=== PATIENT | male | born 1950 | race Caucasian/White ===

== ENCOUNTER → 2018-06-27 | Day surgery (SDC) | payer OTHER ==
[2018-06-21 11:40] VITALS: BMI 33.9
[~2018-06-27] MED LIST: ALPRAZolam 0.25 MG TAB PO PRN; ALPRAZolam 0.5 MG TAB PO PRN; ASPIRIN 325 MG TAB PO STA; ATORVASTATIN 80 MG TAB PO STA; HEPARIN SODIUM 1,000 UN/ML (10ML VL) IV ONE; HEPARIN SODIUM 1,000 UN/ML (10ML VL) ONE; IOPAMIDOL-370 125ML BTL INJ ONE; LIDOCAINE 1% (PF) 10MG/ML VIAL SQ ONE; LIDOCAINE 1% INJ 10MG/ML (20 ML MDV) ONE; MIDAZOLAM 2 MG/2 ML VIAL IV ONE; MIDAZOLAM 2 MG/2 ML VIAL ONE; NITROGLYCERIN SL TABS 0.4 MG TAB SUBLINGUAL PRN; RX INFO: IV CONTRAST WAS GIVEN 1 EACH MISC MISCELLANE PRN; SODIUM CHLORIDE 0.9% 1,000 ML IV SCH; SODIUM CHLORIDE 0.9% 1,000 ML in EMPTY BAG 1 BAG IV ONE; VERAPAMIL 2.5 MG/ML 2 ML AMP ONE; VERAPAMIL SYRINGE (5 MG/10 ML) INTRAARTER ONE; methylPREDNISolone SOD SUCCI 125 MG/2 ML VIAL ONE
[2018-06-27 08:31] VITALS: RESP 18
[2018-06-27] MEDS: VERAPAMIL SYRINGE (5 MG/10 ML) INTRAARTER ONE ×2 (09:08→09:18)
--- NOTE | 2018-06-27 09:50 | CC ---
CARDIAC CATHETERIZATION REPORT DATE OF SERVICE: June 27, 2018 PERFORMING PHYSICIAN: Anson Vazquez MD. PROCEDURE PERFORMED: 1. Selective right and left coronary angiogram. 2. Left heart catheterization. INDICATIONS: This is a very pleasant 67-year-old gentleman with known history of coronary artery disease and prior stenting of the LAD was performed in 2011, was experiencing exertional symptoms of shortness of breath concerning for angina given the nature of the symptoms very similar to what he had in the past. Because of that, heart catheterization was advised. APPROACH: Right radial artery. COMPLICATION: None. LEVEL OF SEDATION: Moderate with sedation length of 14 minutes. PROCEDURE DESCRIPTION: After obtaining informed consent, the patient was brought to cardiac forestry laborer. The right radial artery was cannulated using micropuncture technique. Then I placed a 6- Boliv[place] sheath in the right radial artery. After that, I did selective right and left coronary angiogram using using 5-Bolivian catheter. Left heart catheterization was performed using 5-Bolivian pigtail catheter. The procedure was completed without any complication. SELECTIVE CORONARY ANGIOGRAM: 1. The right coronary artery is a small to medium caliber vessel and it is a codominant vessel. It is angiographically normal. 2. The left main is angiographically normal. It bifurcates into left circumflex and left anterior descending artery. 3. The left circumflex is a large caliber vessel. It is a dominant vessel. The proximal circumflex is angiographically normal. The mid circumflex is normal and gives rise into a large OM branch which appeared to be angiographically normal and the circumflex distally is normal and bifurcates into PDA and PLV branches, both are angiographically normal. 4. The LAD: The proximal LAD appeared to be angiographically normal. It gives rise into a diagonal branch which appeared to be normal. The mid LAD is stented and the stent is patent. bifurcation of second diagonal branch which appeared to be angiographically normal. The LAD in the mid to distal portion does have a lesion, appeared to be in the range of 50%. The LAD distally appeared to be angiographically normal. HEMODYNAMICS: The left ventricular end-diastolic pressure was 12 mmHg and no gradient was identified across the aortic valve. CONCLUSION: Patent stent in the mid left anterior descending artery. Intermediate lesion involving the mid to distal left anterior descending artery appeared to be in the range of 50%. POSTPROCEDURE MANAGEMENT: Medical treatment and follow up with the patient. MMODL / IJN: [id number] /
--- NOTE | 2018-06-27 09:53 | LTR ---
June 27, 2018 Re: Andrew Velazquez Dear Dr. Brown: Mr. Andrew Velazquez underwent a heart catheterization and that revealed patent stent in the mid LAD. I want to thank you for allowing me to participate in his care and please do not hesitate to call if question or concern. Sincerely, MD SUE Kilpatrick / LINDSAY: [id number] /
[2018-06-27 10:47] VITALS: TEMP 97.8
[2018-06-27 13:48] VITALS: BP 152/82; PULSE 68
== END ==
LOC: CATHCVL 07:55
PROVIDERS: ATTEND Internal Medicine Interventional Cardiology
DX: I25.110 Atherosclerotic heart disease of native coronary artery with unstable angina pectoris (principal); Z95.5 Presence of coronary angioplasty implant and graft; I10 Essential (primary) hypertension; E78.5 Hyperlipidemia, unspecified; E78.00 Pure hypercholesterolemia, unspecified; I65.23 Occlusion and stenosis of bilateral carotid arteries; Z79.82 Long term (current) use of aspirin; Z79.899 Other long term (current) drug therapy; Z72.0 Tobacco use; Z88.0 Allergy status to penicillin
CPT/HCPCS: 93458; C1894; J2250; J2930; J1644; J2001; Q9967

== ENCOUNTER 2018-11-16 10:23 | Observation (INO) | payer MEDICARE, OTHER ==
[2018-11-16] MEDS ORDERED: SODIUM CHLORIDE 0.9% 1,000 ML IV STA (10:46)
[2018-11-16] MEDS ORDERED: NITROGLYCERIN SL TABS 0.4 MG TAB SUBLINGUAL STA (10:46)
[2018-11-16] MEDS ORDERED: ASPIRIN 81 MG PO STA (10:46)
--- NOTE | 2018-11-16 10:54 | ED ---
Chest Pain HPI - General Chief Complaint: Chest Pain Stated Complaint: chest pain Time Seen by Provider: 11/16/18 10:32 Source: patient, RN notes reviewed Mode of arrival: wheelchair Limitations: no limitations - History of Present Illness Initial Comments: This is a 67-year-old male history of a cardiac stent in the past who states that he's been on a weight loss and walking regimen for the past several months where he lost 30+ pounds but over the last several weeks he's been having episodes of right-sided flank and chest pain this evening get worse with walking and exertion and get better with rest until last several days his been getting better with rest but now he doesn't he describes the pain is worse is dull 7 and 8/10 severity he does have some exertional dyspnea when it comes on. Right now he states he has some dull 2/10 pain mid sternal region. No fevers chills nausea vomiting sweats he does have the occasional exertional dyspnea he states. No other modifying factors no palpitations. He is scheduled for cardiac catheterization on the of this month. MD Complaint: chest pain - Related Data Home Medications Medication Instructions Recorded Confirmed Aspirin 81 mg PO HS 06/20/14 11/16/18 Lisinopril [Zestril] 10 mg PO HS 06/20/14 11/16/18 Metoprolol Tartrate [Lopressor] 25 mg PO HS 06/20/14 11/16/18 Metoprolol Tartrate [Lopressor] 50 mg PO QAM 06/20/14 11/16/18 Montelukast [Singulair] 10 mg PO HS 06/20/14 11/16/18 Multivitamin [Men's Multi-Vitamin] 1 tab PO DAILY 06/20/14 11/16/18 Omeprazole [PriLOSEC] 20 mg PO AC-BRKFST 06/20/14 11/16/18 Tamsulosin [Flomax] 0.4 mg PO DAILY 06/21/18 11/16/18 Isosorbide Mononitrate ER [Imdur] 30 mg PO DAILY 11/16/18 11/16/18 Multivitamins, Thera [Multivitamin 1 tab PO DAILY 11/16/18 11/16/18 (formulary)] Nitroglycerin Sl Tabs [Nitrostat] 0.4 mg SUBLINGUAL Q5M PRN 11/16/18 11/16/18 Rosuvastatin Calcium [Crestor] 40 mg PO DAILY 11/16/18 11/16/18 Vits A,C,E/Lutein/Minerals 1 tab PO DAILY 11/16/18 11/16/18 [Ocuvite with Lutein Tablet] Allergies Allergy/AdvReac Type Severity Reaction Status Date / Time Penicillins Allergy Rash/Hives Verified 11/16/18 10:49 shellfish derived [Shellfish] AdvReac Anaphylaxis Verified 11/16/18 10:49 vitamin B Allergy Rash/Hives Uncoded 11/16/18 10:28 Review of Systems ROS Statement: Those systems with pertinent positive or pertinent negative responses have been documented in the HPI. ROS Other: All systems not noted in ROS Statement are negative. EKG Findings - EKG Results: EKG: interpreted by ERMD (Sinus bradycardia with a rate of 49. Interval 220 QRS duration 90 QT since QTC 450/46 first-degree AV block noted voltage criteria for LVH this is compared with an EKG dated 06/25/12 which shows similar configuration however the bradycardia was not present at that time.) Past Medical History Past Medical History: Asthma, Hyperlipidemia, Hypertension Additional Past Medical History / Comment(s): hx. Hammond's esophagus, hx. colon polyps, prediabetes History of Any Multi-Drug Resistant Organisms: None Reported Past Surgical History: Heart Catheterization, Heart Catheterization With Stent Additional Past Surgical History / Comment(s): chest wound repair-1966, RT CATARACT Past Anesthesia/Blood Transfusion Reactions: Postoperative Nausea & Vomiting (PONV) Date of Last Stent Placement:: 2011 Past Psychological History: No Psychological Hx Reported Smoking Status: Never smoker Past Alcohol Use History: Rare Past Drug Use History: None Reported - Past Family History Sister(s) Family Medical History: Cancer Father Family Medical History: Cancer Brother(s) Family Medical History: Cancer General Exam - General Exam Comments Initial Comments: This is a well-developed well-nourished awake alert oriented 3 male Limitations: no limitations General appearance: alert, in no apparent distress Head exam: Present: atraumatic, normocephalic, normal inspection Eye exam: Present: normal appearance, PERRL, EOMI. Absent: scleral icterus, conjunctival injection, periorbital swelling ENT exam: Present: normal exam, mucous membranes moist Neck exam: Present: normal inspection, full ROM, other (No stridor JVD or bruits). Absent: tenderness, meningismus, lymphadenopathy Respiratory exam: Present: normal lung sounds bilaterally. Absent: respiratory distress, wheezes, rales, rhonchi, stridor Cardiovascular Exam: Present: regular rate, normal rhythm, normal heart sounds. Absent: systolic murmur, diastolic murmur, rubs, gallop, clicks GI/Abdominal exam: Present: soft, normal bowel sounds. Absent: distended, tenderness, guarding, rebound, rigid Extremities exam: Present: normal inspection, full ROM, normal capillary refill. Absent: tenderness, pedal edema, joint swelling, calf tenderness Back exam: Present: normal inspection Neurological exam: Present: alert, oriented X3, CN II-XII intact Psychiatric exam: Present: normal affect, normal mood Skin exam: Present: warm, dry, intact, normal color. Absent: rash Course Vital Signs 11/16/18 10:24 Temperature 97.5 F L Pulse Rate 52 L Respiratory 18 Rate Blood Pressure 136/69 O2 Sat by Pulse 99 Oximetry - Reevaluation(s) Reevaluation #1: 11/16/18 12:58 Reevaluation the patient reveals he is pain-free after nitroglycerin. Reevaluation #2: 11/16/18 13:00 electrical technician: electrical technician was indicated due to the patient's presentation with chest pain rule out dysrhythmia. Patient was noted have a heart rate of 50 AK evaluation bradycardia no evidence of ST elevation or PACs or PVCs. Chest Pain MDM - MDM I did review the imaging and report is evidence of basilar infiltrate the patient had no symptoms of shortness of breath cough or phlegm production fevers chills or sweats. Likely on the basis of some atelectasis. I did discuss the findings with the patient and family members patient will be admitted for evaluation of chest pain which appears consistent with ACS/unstable angina. Dr. Lebron will be consulted. Critical Care Time Critical Care Time: Yes Critical Care Time: 31 minutes of critical care time which includes initial presentation with history physical labs x-rays multiple reevaluation patient responsive therapy discuss with the patient regarding the findings discussed with Dr. Medeiros who who patient will be admitted to admission orders documentation the above. Patient is placed on nitro and heparin and has are he received aspirin. He did take 81 mg of aspirin last night before bed. Disposition Clinical Impression: Acute coronary syndrome, Unstable angina pectoris Disposition: ADMITTED IP TO THIS HOSP Condition: Fair Referrals: [facility],Clinic [Primary Care Provider] - 1-2 days
[2018-11-16 11:21] LABS: Basophils # (A) 0.1 k/uL (0-0.2); Basophils % (A) 1 %; Eosinophils # (A) 0.4 k/uL (0-0.7); Eosinophils % (A) 5 %; HCT 43.3 % (39.0-53.0); HGB 14.1 gm/dL (13.0-17.5); Lymphocytes # (A) 2.8 k/uL (1.0-4.8); Lymphocytes % (A) 31 %; MCH 28.2 pg (25.0-35.0); MCHC 32.5 g/dL (31.0-37.0); MCV 86.7 fL (80.0-100.0); Mean Platelet Volume 8.4; Monocytes # (A) 0.7 k/uL (0-1.0); Monocytes % (A) 7 %; Neutrophils % (A) 55 %; Platelet Count 153 k/uL (150-450); RDW 14.4 % (11.5-15.5); WBC 9.2 k/uL (3.8-10.6)
--- NOTE | 2018-11-16 11:27 | XR ---
EXAMINATION TYPE: XR chest 2V DATE OF EXAM: 11/16/2018 COMPARISON: 07/02/2012 INDICATION: Chest pain TECHNIQUE: Frontal and lateral views of the chest are obtained. FINDINGS: The heart size is normal. The pulmonary vasculature is normal. There is some mild patchy alveolar type infiltrate at the left base. Mild increased lung markings are at the right base. Correlate for infectious etiology such as pneumonia. Atelectasis is considered le ss likely. Atypical pulmonary edema is considered less likely. IMPRESSION: 1. Mild bibasilar infiltrates greater at the left base suspicious for an infectious etiology. Clinica l correlation is recommended and follow-up can be performed.
[2018-11-16 11:33] LABS: ALT 33 U/L (21-72); AST 28 U/L (17-59); Albumin 4.4 g/dL (3.5-5.0); Alkaline Phosphatase 73 U/L (38-126); Anion Gap 9 mmol/L; Blood Urea Nitrogen 20 mg/dL (9-20); Calcium 9.6 mg/dL (8.4-10.2); Carbon Dioxide 24 mmol/L (22-30); Chloride 107 mmol/L (98-107); Creatine Kinase 93 U/L (55-170); Glucose 91 mg/dL (74-99); Magnesium 1.8 mg/dL (1.6-2.3); Potassium 4.9 mmol/L (3.5-5.1); Sodium 140 mmol/L (137-145); Total Bilirubin 0.9 mg/dL (0.2-1.3); Total Protein 7.5 g/dL (6.3-8.2)
[2018-11-16 11:42] LABS: Partial Thromboplastin Time 23.3 sec (22.0-30.0); Prothrombin Time 10.8 sec (9.0-12.0)
[2018-11-16] MEDS ORDERED: HEPARIN SODIUM,PORCINE 5,000 UNIT/ML 1 ML VIAL IV ONE (13:04)
[2018-11-16] MEDS ORDERED: NITROGLYCERIN SL TABS 0.4 MG TAB SUBLINGUAL PRN (13:04)
[2018-11-16] MEDS: HEPARIN SOD,PORK IN 0.45% NACL 25,000 UNIT in 0.45% NACL 1 250ML.BAG IV SCH (13:34)
[2018-11-16] MEDS: NITROGLYCERIN OINT 1 INCH/GM PACKET TOPICAL SCH (19:51)
[2018-11-16] MEDS: SODIUM CHLORIDE 0.9% 1,000 ML IV SCH (19:51)
[2018-11-16] MEDS: LISINOPRIL 10 MG TAB PO SCH (20:21)
[2018-11-16] MEDS: MONTELUKAST 10 MG TAB PO SCH (20:21)
[2018-11-16] MEDS ORDERED: METOPROLOL TARTRATE 25 MG TAB PO SCH (21:00)
[2018-11-17] MEDS: NITROGLYCERIN OINT 1 INCH/GM PACKET TOPICAL SCH ×2 (00:04→04:41)
[2018-11-17 04:31] LABS: Cholesterol 95 mg/dL (<200); HDL Cholesterol 40 mg/dL (40-60); LDL Cholesterol,Calculated 44 mg/dL (0-99); Triglycerides 54 mg/dL (<150)
[2018-11-17 07:42] VITALS: RESP 18
[2018-11-17] MEDS ORDERED: ASPIRIN 325 MG TAB PO SCH (09:00)
[2018-11-17] MEDS ORDERED: METOPROLOL TARTRATE 50 MG TAB PO SCH (09:00)
[2018-11-17] MEDS: ATORVASTATIN 80 MG TAB PO SCH (10:05)
[2018-11-17] MEDS: ISOSORBIDE MONONITRATE ER 30 MG TAB.ER.24H PO SCH (10:05)
[2018-11-17] MEDS: PANTOPRAZOLE 40 MG TABLET PO SCH (10:05)
[2018-11-17] MEDS: TAMSULOSIN 0.4 MG CAP.ER.24H PO SCH (10:05)
[2018-11-17] MEDS: VIT A,C & E-LUTEIN-MINERALS 1 EACH TAB PO SCH (10:08)
[2018-11-17] MEDS ORDERED: SODIUM CHLORIDE 0.9% 1,000 ML in EMPTY BAG 1 BAG IV ONE (10:24)
--- NOTE | 2018-11-17 10:51 | ECHOF ---
Referral Reason:cp MEASUREMENTS -------- HEIGHT: 162.6 cm WEIGHT: 95.3 kg BP: RVIDd: 3.6 cm (< 3.3) IVSd: 1.1 cm (0.6 - 1.1) LVIDd: 4.3 cm (3.9 - 5.3) LVPWd: 1.3 cm (0.6 - 1.1) IVSs: 1.6 cm LVIDs: 3.5 cm LVPWs: 1.7 cm LA Diam: 3.8 cm (2.7 - 3.8) LAESV Index (A-L): 25.24 ml/m Ao Diam: 3.3 cm (2.0 - 3.7) AV Cusp: 2.0 cm (1.5 - 2.6) LA Diam: 5.1 cm (2.7 - 3.8) MV EXCURSION: 18.959 mm (> 18.000) MV EF SLOPE: 65 mm/s (70 - 150) EPSS: 0.6 cm MV E Tavon: 0.50 m/s MV DecT: 282 ms MV A Tavon: 0.67 m/s MV E/A Ratio: 0.74 AR PHT: 917 ms RAP: 5.00 mmHg RVSP: 45.16 mmHg FINDINGS -------- Sinus rhythm. This was a technically adequate study. LV size, wall thickness and systolic function are normal, with an EF greater than 55%. The left mario tricular size is normal. The right ventricle is mildly enlarged. The left atrial size is normal. The right atrial size is normal. There is mild aortic valve sclerosis. Trace amount of aortic regurgitation. Mild mitral annular calcification present. Mild mitral regurgitation is present. Mild tricuspid regurgitation present. There is mild pulmonary hypertension. The right ventricular systolic pressure, as measured by Doppler, is 45.16mmHg. There is no pulmonic regurgitation present. The aortic root size is normal. There is no pericardial effusion. CONCLUSIONS -------- 1. LV size, wall thickness and systolic function are normal, with an EF greater than 55%. 2. The right ventricle is mildly enlarged. 3. The left atrial size is normal. 4. The right atrial size is normal. 5. There is mild aortic valve sclerosis. 6. Trace amount of aortic regurgitation. 7. Mild mitral annular calcification present. 8. Mild mitral regurgitation is present. 9. Mild tricuspid regurgitation present. 10. There is mild pulmonary hypertension. 11. The right ventricular systolic pressure, as measured by Doppler, is 45.16mmHg. 12. There is no pulmonic regurgitation present. 13. The aortic root size is normal. 14. There is no pericardial effusion. PROFESSIONAL FIGHTER: Rebecca Dubon RDCS
--- NOTE | 2018-11-17 11:53 | P.HPIM ---
History of Present Illness H&P Date: 11/16/18 Chief Complaint: Chest pain Patient is a 67-year-old male with a known history of hypertension, hyperlipidemia, asthma, history of Hammond's esophagus, prediabetes and coronary artery disease with history of stent placement came to ER with complaints of exertional shortness of breath. Patient follows at [facility]. Patient is complaining of dull pain mainly right-sided chest.. Without any radiation of the pain. Patient has been on weight loss and walking placement for the past several months. He last 30+ pounds but over the last several weeks he has been having episodes of right-sided flank and chest pain. Patient did have worsening right-sided chest pain with walking and exertion and gets better with rest. Denied any nausea vomiting or diaphoresis along with. Patient does have exertional dyspnea otherwise. Patient is scheduled for cardiac catheterization on of this month.Denied any cough or sputum production. No recent illnesses. Denied any fever or chills. EKG showed sinus bradycardia with first-degree AV block Chest x-ray showed mild bibasilar infiltrates greater at the left base suspicious for an infectious etiology. Clinical correlation is recommended and follow-up can be performed. D-dimer is not elevated. No leukocytosis. Troponin 1 negative. Review of Systems Constitutional: Patient denies any fever or chills . No generalized weakness or weight loss. Abdomen: Patient denied nausea vomiting and diarrhea and abdominal pain. Cardiovascular: Patient denies any chest pain or short of breath no palpitations. Respiratory: patient denied any cough is from production. No shortness of breath Neurologic: Patient denied any numbness or tingling headache. Musculoskeletal: Patient denies any complaints of joint swelling or deformity. Skin: Negative Psychiatric: Negative Endocrine: No heat or cold intolerance. No recent weight gain. Genitourinary: No dysuria or hematuria. All other 14 point ROS negative except the above Past Medical History Past Medical History: Asthma, Hyperlipidemia, Hypertension Additional Past Medical History / Comment(s): hx. Hammond's esophagus, hx. colon polyps, prediabetes History of Any Multi-Drug Resistant Organisms: None Reported Past Surgical History: Heart Catheterization, Heart Catheterization With Stent Additional Past Surgical History / Comment(s): chest wound repair-1966, bilateral cataract repair Past Anesthesia/Blood Transfusion Reactions: Postoperative Nausea & Vomiting (PONV) Date of Last Stent Placement:: 2012 Past Psychological History: No Psychological Hx Reported Smoking Status: Current some day smoker Past Alcohol Use History: Rare Additional Past Alcohol Use History / Comment(s): STARTED SMOKING AT AGE 12, QUIT SMOKING IN , SMOKED 3PPD Past Drug Use History: None Reported - Past Family History Sister(s) Family Medical History: Cancer Father Family Medical History: Cancer Brother(s) Family Medical History: Cancer Medications and Allergies Home Medications Medication Instructions Recorded Confirmed Type Aspirin 81 mg PO HS 06/20/14 11/16/18 History Lisinopril [Zestril] 10 mg PO HS 06/20/14 11/16/18 History Metoprolol Tartrate [Lopressor] 25 mg PO HS 06/20/14 11/16/18 History Metoprolol Tartrate [Lopressor] 50 mg PO QAM 06/20/14 11/16/18 History Montelukast [Singulair] 10 mg PO HS 06/20/14 11/16/18 History Multivitamin [Men's Multi-Vitamin] 1 tab PO DAILY 06/20/14 11/16/18 History Omeprazole [PriLOSEC] 20 mg PO AC-BRKFST 06/20/14 11/16/18 History Tamsulosin [Flomax] 0.4 mg PO DAILY 06/21/18 11/16/18 History Isosorbide Mononitrate ER [Imdur] 30 mg PO DAILY 11/16/18 11/16/18 History Multivitamins, Thera [Multivitamin 1 tab PO DAILY 11/16/18 11/16/18 History (formulary)] Nitroglycerin Sl Tabs [Nitrostat] 0.4 mg SUBLINGUAL Q5M PRN 11/16/18 11/16/18 History Rosuvastatin Calcium [Crestor] 40 mg PO DAILY 11/16/18 11/16/18 History Vits A,C,E/Lutein/Minerals 1 tab PO DAILY 11/16/18 11/16/18 History [Ocuvite with Lutein Tablet] Allergies Allergy/AdvReac Type Severity Reaction Status Date / Time Penicillins Allergy Rash/Hives Verified 11/16/18 10:49 shellfish derived [Shellfish] AdvReac Anaphylaxis Verified 11/16/18 10:49 vitamin B Allergy Rash/Hives Uncoded 11/16/18 10:28 Physical Exam Vitals: Vital Signs Temp Pulse Pulse Resp BP BP Pulse Ox 11/16/18 18:47 98.2 F 57 L 14 124/71 98 11/16/18 16:00 97.8 F 53 L 18 133/67 96 11/16/18 14:10 97.5 F L 49 L 18 146/74 98 11/16/18 13:30 49 L 118/60 97 11/16/18 13:00 44 L 87/40 99 11/16/18 12:30 47 L 137/78 95 11/16/18 12:00 48 L 127/58 97 11/16/18 11:30 47 L 130/76 97 11/16/18 10:24 97.5 F L 52 L 18 136/69 99 Intake and Output 11/16/18 11/16/18 11/16/18 06:59 14:59 22:59 Intake Total 268.18 Balance 268.18 Intake: Intake, IV Titration 68.18 Amount Heparin Sod,Pork in 0.45% 68.18 NaCl 25,000 unit In 0.45 % NaCl 1 250ml.bag @ 10.5 UNITS/KG/HR 10.002 mls/ hr IV .Q24H ROXANNE Rx#: [id number] Oral 200 Other: Voiding Method Toilet # Voids 1 Weight 95.254 kg PHYSICAL EXAMINATION: Patient is lying in the bed comfortably, no acute distress, awake alert and oriented.. HEENT: Normocephalic. Neck is supple. Pupils reactive. Nostrils clear. Oral cavity is moist. Ears reveal no drainage. Neck reveals no JVD, carotid bruits, or thyromegaly. CHEST EXAMINATION: Trachea is central. Symmetrical expansion. Bibasilar diminished air entry. Lung queen clear to auscultation and percussion. CARDIAC: Normal S1, S2 with no gallops. No murmurs ABDOMEN: Soft. Bowel sounds normal. No organomegaly. No abdominal bruits. Extremities: reveal no edema. No clubbing or cyanosis Neurologically awake, alert, oriented x3 with well-coordinated movements. No focal deficits noted Skin: No rash or skin lesions. Psychiatric: Coperative. Nonsuicidal Musculoskeletal: No joint swelling or deformity. Normal range of motion. Results CBC & Chem 7: 11/16/18 11:04 11/16/18 11:04 Labs: Abnormal Lab Results - Last 24 Hours (Table) 11/16/18 Range/Units 19:41 APTT 44.2 H (22.0-30.0) sec Thrombosis Risk Factor Assmnt - DVT/VTE Prophylaxis DVT/VTE Prophylaxis: Pharmacologic Prophylaxis ordered - Choose All That Apply Any of the Below Risk Factors Present?: Yes Each Factor Represents 1 point: Obesity (BMI >25) Other Risk Factors: Yes Each Risk Factor Represents 2 Points: Age 61-74 years Thrombosis Risk Factor Assessment Total Risk Factor Score: 3 Thrombosis Risk Factor Assessment Level: Moderate Risk Assessment and Plan Assessment: Atypical chest pain. Chest pain is right-sided and exertional dyspnea. Possible angina. Mild bibasal infiltrate on chest x-ray. Without any other evidence of pneumonia. Will follow up. Sinus bradycardia with first-degree AV block Hypertension Hyperlipidemia Asthma History of Hammond's esophagus Prediabetes diet-controlled History of coronary disease with stent placement in 2011. Occasional smoking Plan: Patient continued on telemetry monitoring. Serial EKGs and troponins. Continue with heparin drip. Cardiology was consulted. Patient is supposed to cardiac catheterization on of this month. We will continue the home medications and further recommendations based on the clinical course. Past Drug Use History: None Reported Time with Patient: Greater than 30
--- NOTE | 2018-11-17 12:04 | P.CRDCN ---
History of Present Illness History of present illness: This is a pleasant 67-year-old male past medical history significant for coronary artery disease status post stent placement in 2011 to the LAD, asthma, hypertension, dyslipidemia and Hammond's esophagus. He follows in the office with Dr. Vazquez. We've been asked to see him in consultation secondary to chest discomfort. He recently in June of last year underwent cardiac cat heterization secondary to exertional shortness of breath concerning for angina which revealed a patent stent in the mid LAD with a lesion noted distally of approximately 50%. At that time he was placed on Imdur. He saw Dr. Vazquez in the office last week and described ongoing exertional shortness of breath. He was scheduled for repeat catheterization with probably stent placement later this month with Dr. Vazquez. However yesterday after waking up he started feeling a pain in the right anterior chest wall with radiation through to the right upper back. The pain came while he was walking around his house doing anything particularly exerting. There was no radiation to the arms neck or jaw. There is no associated shortness of breath, dizziness, nausea, vomiting, palpitations or diaphoresis. The symptoms were very brief lasting a couple of minutes and improved when he sat down and rested. He states in the past when he underwent his initial stent placement or ever since then he has never had any chest discomfort symptoms of angina moist and shortness of breath. He denies any cough. EKG reveals sinus bradycardia heart rate of 49. Chest x-ray reveals mild bibasilar infiltrates. Laboratory data reviewed, cardiac enzymes negative 3, d-dimer 0.44, LDL 44, HDL 40, WBC 9.2, hemoglobin 14.1, platelets 153, sodium 140, potassium 4.9, creatinine 0.8 and GFR 88, magnesium 1.8. Current cardiac medications include Lopressor 50 mg in the morning and 25 mg at bedtime, rosuvastatin 40 mg daily, Imdur 30 mg daily, lisinopril 10 mg daily and aspirin 81 mg daily. At the time of my exam: CONSTITUTIONAL: Denies fever. Denies chills. EYES: Denies blurred vision. Denies vision changes. Denies eye pain. EARS, NOSE, MOUTH & THROAT: Denies headache. Denies sore throat. Denies ear pain. CARDIOVASCULAR: Denies chest pain. Denies shortness of breath. Denies orthopnea. Denies PND. Denies palpitations. RESPIRATORY: Denies cough. GASTROINTESTINAL: Denies abdominal pain. Denies diarrhea. Denies constipation. Denies nausea. Denies vomiting. MUSCULOSKELETAL: Denies myalgias. INTEGUMENTARY: Denies pruitis. Denies rash. NEUROLOGIC: Denies numbness. Denies tingling. Denies weakness. PSYCHIATRIC: Denies anxiety. Denies depression. ENDOCRINE: Denies fatigue. Denies weight change. Denies polydipsia. Denies polyurina. GENITOURINARY: Denies burning, hematuria or urgency with micturation. HEMATOLOGIC: Denies history of anemia. Denies bleeding. Blood pressure 09/11/2072 heart rate 58 afebrile maintaining oxygen saturation on room air GENERAL: This is a 67-year-old male in no apparent distress at the time of my examination. HEENT: Head is atraumatic, normocephalic. Pupils are equal, round. Sclerae anicteric. Conjunctivae are clear. Mucous membranes of the mouth are moist. Neck is supple. There is no jugular venous distention. No carotid bruit is heard. LUNGS: Clear to auscultation no wheezes, rales or rhonchi. No chest wall tenderness is noted on palpation or with deep breathing. HEART: Regular rate and rhythm without murmurs, rubs or gallops. S1 and S2 heard. ABDOMEN: Soft, nontender. Bowel sounds are heard. No organomegaly noted. EXTREMITIES: No evidence of peripheral edema and no calf tenderness noted. VASCULAR: Radial and dorsalis pedis pulses palpated, no evidence of clubbing. NEUROLOGIC: Patient is awake, alert and oriented x3. ASSESSMENT Chest pain with known 50% blockage of LAD with plan for repeat cath later this month. Coronary artery disease s/p stent placement to mid LAD 2011 with evidence of distal LAD disease of 50% Hypertension Dyslipidemia Asthma PLAN Obtain 2D echocardiogram and doppler study to assess cardiac structure and function. With his symptoms suggestive of unstable angina we recommend he proceed with cardiac cathereization today rather than wait until later this month. I have discussed the risks, benefits and alternative therapies for the above-mentioned procedure and for both sedation/analgesia as well as necessary blood product administration, if indicated, as they pertain to this patient. The patient has indicated understanding and acceptance of the risks and procedures discussed. Questions have been answered appropriately and he is agreeable to move forward with above stated procedure. Decrease lopressor to 25 mg BID for bradycardia noted on EKG. Further recommendations to follow. Thank you kindly for this consultation. Nurse Practitioner note has been reviewed, I agree with a documented findings and plan of care. Patient was seen and examined. Past Medical History Past Medical History: Asthma, Hyperlipidemia, Hypertension Additional Past Medical History / Comment(s): hx. Hammond's esophagus, hx. colon polyps, prediabetes History of Any Multi-Drug Resistant Organisms: None Reported Past Surgical History: Heart Catheterization, Heart Catheterization With Stent Additional Past Surgical History / Comment(s): chest wound repair-1966, bilateral cataract repair Past Anesthesia/Blood Transfusion Reactions: Postoperative Nausea & Vomiting (PONV) Date of Last Stent Placement:: 2011 Past Psychological History: No Psychological Hx Reported Smoking Status: Current some day smoker Past Alcohol Use History: Rare Additional Past Alcohol Use History / Comment(s): STARTED SMOKING AT AGE 12, QUIT SMOKING IN , SMOKED 3PPD Past Drug Use History: None Reported - Past Family History Sister(s) Family Medical History: Cancer Father Family Medical History: Cancer Brother(s) Family Medical History: Cancer Medications and Allergies Home Medications Medication Instructions Recorded Confirmed Type Aspirin 81 mg PO HS 06/20/14 11/16/18 History Lisinopril [Zestril] 10 mg PO HS 06/20/14 11/16/18 History Metoprolol Tartrate [Lopressor] 25 mg PO HS 06/20/14 11/16/18 History Metoprolol Tartrate [Lopressor] 50 mg PO QA 06/20/14 11/16/18 History Montelukast [Singulair] 10 mg PO HS 06/20/14 11/16/18 History Multivitamin [Men's Multi-Vitamin] 1 tab PO DAILY 06/20/14 11/16/18 History Omeprazole [PriLOSEC] 20 mg PO AC-BRKFST 06/20/14 11/16/18 History Tamsulosin [Flomax] 0.4 mg PO DAILY 06/21/18 11/16/18 History Isosorbide Mononitrate ER [Imdur] 30 mg PO DAILY 11/16/18 11/16/18 History Multivitamins, Thera [Multivitamin 1 tab PO DAILY 11/16/18 11/16/18 History (formulary)] Nitroglycerin Sl Tabs [Nitrostat] 0.4 mg SUBLINGUAL Q5M PRN 11/16/18 11/16/18 History Rosuvastatin Calcium [Crestor] 40 mg PO DAILY 11/16/18 11/16/18 History Vits A,C,E/Lutein/Minerals 1 tab PO DAILY 11/16/18 11/16/18 History [Ocuvite with Lutein Tablet] Allergies Allergy/AdvReac Type Severity Reaction Status Date / Time Penicillins Allergy Rash/Hives Verified 11/16/18 10:49 shellfish derived [Shellfish] AdvReac Anaphylaxis Verified 11/16/18 10:49 vitamin B Allergy Rash/Hives Uncoded 11/16/18 10:28 Physical Exam Vitals: Vital Signs Temp Pulse Pulse Resp BP BP BP 11/17/18 07:20 98.9 F 58 L 18 127/73 11/17/18 04:00 16 11/17/18 03:42 98.2 F 56 L 14 130/76 11/16/18 23:53 16 11/16/18 23:37 97.9 F 67 15 102/57 11/16/18 20:00 16 11/16/18 18:47 98.2 F 57 L 14 124/71 11/16/18 16:00 97.8 F 53 L 18 133/67 11/16/18 14:10 97.5 F L 49 L 18 146/74 11/16/18 13:30 49 L 118/60 11/16/18 13:00 44 L 87/40 11/16/18 12:30 47 L 137/78 11/16/18 12:00 48 L 127/58 11/16/18 11:30 47 L 130/76 11/16/18 10:24 97.5 F L 52 L 18 136/69 Pulse Ox 11/17/18 07:20 95 11/17/18 04:00 11/17/18 03:42 99 11/16/18 23:53 11/16/18 23:37 96 11/16/18 20:00 11/16/18 18:47 98 11/16/18 16:00 96 11/16/18 14:10 98 11/16/18 13:30 97 11/16/18 13:00 99 11/16/18 12:30 95 11/16/18 12:00 97 11/16/18 11:30 97 11/16/18 10:24 99 Intake and Output 11/16/18 11/17/18 11/17/18 22:59 06:59 14:59 Intake Total 268.18 82.952 Balance 268.18 82.952 Intake: Intake, IV Titration 68.18 82.952 Amount Heparin Sod,Pork in 0.45% 68.18 82.952 NaCl 25,000 unit In 0.45 % NaCl 1 250ml.bag @ 10.5 UNITS/KG/HR 10.002 mls/ hr IV .Q24H [facility]OX[facility] Rx#: [id number] Oral 200 0 Other: Voiding Method Toilet Toilet # Voids 1 1 Results 11/16/18 11:04 11/16/18 11:04 Cardiac Enzymes 11/16/18 11/16/18 11/16/18 Range/Units 11:04 11:04 17:05 AST 28 (17-59) U/L Troponin I <0.012 <0.012 (0.000-0.034) ng/mL 11/16/18 Range/Units 23:27 AST (17-59) U/L Troponin I <0.012 (0.000-0.034) ng/mL Coagulation 11/16/18 11/16/18 11/17/18 Range/Units 11:04 19:41 03:11 PT 10.8 (9.0-12.0) sec APTT 23.3 44.2 H 52.6 H (22.0-30.0) sec Lipids 11/17/18 Range/Units 03:11 Triglycerides 54 (<150) mg/dL Cholesterol 95 (<200) mg/dL HDL Cholesterol 40 (40-60) mg/dL CBC 11/16/18 Range/Units 11:04 WBC 9.2 (3.8-10.6) k/uL RBC 5.00 (4.30-5.90) m/uL Hgb 14.1 (13.0-17.5) gm/dL Hct 43.3 (39.0-53.0) % Plt Count 153 (150-450) k/uL Comprehensive Metabolic Panel 11/16/18 Range/Units 11:04 Sodium 140 (137-145) mmol/L Potassium 4.9 (3.5-5.1) mmol/L Chloride 107 (98-107) mmol/L Carbon Dioxide 24 (22-30) mmol/L BUN 20 (9-20) mg/dL Creatinine 0.89 (0.66-1.25) mg/dL Glucose 91 (74-99) mg/dL Calcium 9.6 (8.4-10.2) mg/dL AST 28 (17-59) U/L ALT 33 (21-72) U/L Alkaline Phosphatase 73 (38-126) U/L Total Protein 7.5 (6.3-8.2) g/dL Albumin 4.4 (3.5-5.0) g/dL Current Medications Generic Name Dose Route Start Last Admin Trade Name Freq PRN Reason Stop Dose Admin Aspirin 325 mg 11/17/18 09:00 Aspirin PO DAILY ROX[facility] Atorvastatin Calcium 80 mg 11/17/18 09:00 Lipitor PO DAILY [facility]OX[facility] Sodium Chloride 1,000 mls @ 20 mls/hr 11/16/18 10:46 11/16/18 11:09 Saline 0.9% IV 11/17/18 10:45 20 mls/hr .Q24H STA Administration Heparin Sodium/Sodium Chloride 250 mls @ 10.002 mls/hr 11/16/18 13:15 11/17/18 03:21 25,000 unit/ Sodium Chloride IV 14.5 units/kg/hr .Q24H ROXANNE 13.812 mls/hr Titration Protocol 10.5 UNITS/KG/HR Sodium Chloride 1,000 mls @ 20 mls/hr 11/16/18 13:15 11/16/18 19:51 Saline 0.9% IV Not Given .Q24H ROX[facility]NE Isosorbide Mononitrate 30 mg 11/17/18 09:00 Imdur PO DAILY ROX[facility]NE Lisinopril 10 mg 11/16/18 21:00 11/16/18 20:21 Zestril PO 10 mg HS ROX[facility]NE Administration Metoprolol Tartrate 50 mg 11/17/18 09:00 Lopressor PO QAM R[facility]NE Metoprolol Tartrate 25 mg 11/16/18 21:00 11/16/18 20:21 Lopressor PO 25 mg HS ROX[facility]NE Administration Montelukast Sodium 10 mg 11/16/18 21:00 11/16/18 20:21 Singulair PO 10 mg HS R[facility]NE Administration Multivitamins 1 each 11/17/18 12:00 Theragran PO DAILY@1200 [facility] Multivitamins/Minerals 1 each 11/17/18 09:00 Ivite PO DAILY ROX[facility] Nitroglycerin 1 inch 11/16/18 18:00 11/17/18 04:41 Nitro-Bid Oint TOPICAL Not Given Q6HR [facility] Nitroglycerin 0.4 mg 11/16/18 13:04 Nitrostat SUBLINGUAL Q5M PRN Chest Pain Pantoprazole Sodium 40 mg 11/17/18 07:30 Protonix PO AC-BRKFST [facility] Tamsulosin HCl 0.4 mg 11/17/18 09:00 Flomax PO DAILY [facility] Intake and Output 11/16/18 11/17/18 11/17/18 22:59 06:59 14:59 Intake Total 268.18 82.952 Balance 268.18 82.952 Intake: Intake, IV Titration 68.18 82.952 Amount Heparin Sod,Pork in 0.45% 68.18 82.952 NaCl 25,000 unit In 0.45 % NaCl 1 250ml.bag @ 10.5 UNITS/KG/HR 10.002 mls/ hr IV .Q24H [facility] Rx#: [id number] Oral 200 0 Other: Voiding Method Toilet Toilet # Voids 1 1 11/16/18 11:04 11/16/18 11:04
[2018-11-17] MEDS: MULTIVITAMINS, THERA 1 EACH TAB PO SCH (12:27)
[2018-11-17] MEDS ORDERED: HEPARIN SODIUM 1,000 UN/ML (10ML VL) ONE (17:22)
[2018-11-17] MEDS ORDERED: VERAPAMIL 2.5 MG/ML 2 ML AMP ONE (17:22)
[2018-11-17] MEDS ORDERED: LIDOCAINE 1% INJ 10MG/ML (20 ML MDV) ONE (17:22)
[2018-11-17] MEDS ORDERED: methylPREDNISolone SOD SUCCI 125 MG/2 ML VIAL ONE (18:17)
[2018-11-17] MEDS ORDERED: methylPREDNISolone SOD SUCCI 125 MG/2 ML VIAL IV ONE (18:20)
[2018-11-17] MEDS ORDERED: MIDAZOLAM 2 MG/2 ML VIAL IVP ONE ×2 (18:20→18:53)
[2018-11-17] MEDS ORDERED: LIDOCAINE 1% INJ 10MG/ML (20 ML MDV) SQ ONE (18:21)
[2018-11-17] MEDS ORDERED: VERAPAMIL SYRINGE (5 MG/10 ML) INTRAARTER ONE ×2 (18:23→18:56)
[2018-11-17] MEDS ORDERED: HEPARIN SODIUM 1,000 UN/ML (10ML VL) IV ONE ×3 (18:25→19:02)
[2018-11-17] MEDS ORDERED: IV FLUID CONTINUATION 1,000 ML IV ONE (18:26)
[2018-11-17] MEDS ORDERED: CLOPIDOGREL 75 MG TAB ONE ×2 (18:39→18:44)
[2018-11-17] MEDS ORDERED: CLOPIDOGREL 75 MG TAB PO ONE (18:45)
[2018-11-17] MEDS ORDERED: IOPAMIDOL-370 150ML BTL INJ ONE (18:55)
[2018-11-17] MEDS ORDERED: MAG HYDROX/AL HYDROX/SIMETH 30 ML CUP PO PRN (19:08)
[2018-11-17] MEDS ORDERED: ATROPINE SULFATE 0.1 MG/ML 10ML SYRINGE IV PRN (19:08)
[2018-11-17] MEDS ORDERED: NITROGLYCERIN SL TABS 0.4 MG TAB SUBLINGUAL PRN (19:08)
[2018-11-17] MEDS ORDERED: RX INFO: IV CONTRAST WAS GIVEN 1 EACH MISC MISCELLANE PRN (19:08)
[2018-11-17] MEDS ORDERED: ZOLPIDEM 5 MG TAB PO PRN (19:08)
[2018-11-17] MEDS ORDERED: SODIUM CHLORIDE 0.9% 1,000 ML IV SCH (19:15)
[2018-11-17] MEDS: HEPARIN SOD,PORK IN 0.45% NACL 25,000 UNIT in 0.45% NACL 1 250ML.BAG IV SCH (20:30)
[2018-11-17] MEDS: SODIUM CHLORIDE 0.9% 1,000 ML IV SCH (20:30)
[2018-11-17] MEDS: LISINOPRIL 10 MG TAB PO SCH (21:20)
[2018-11-17] MEDS: METOPROLOL TARTRATE 25 MG TAB PO SCH (21:20)
[2018-11-17] MEDS: MONTELUKAST 10 MG TAB PO SCH (21:20)
--- NOTE | 2018-11-18 01:47 | CC ---
CARDIAC CATHETERIZATION REPORT DATE OF SERVICE: 11/17/2018. PERFORMED BY: Felicitas Vazquez MD, community outreach worker. PROCEDURE PERFORMED: 1. Selective right and left coronary angiogram. 2. Left heart catheterization. 3. Successful stenting of the mid to distal LAD using two 3.5 x 15 mm stents with an excellent angiographic results and reduction of stenosis from 70% to 0%. INDICATION: This is a 67-year-old gentleman with history of coronary artery disease and prior stenting of the mid LAD as well as hypertension and dyslipidemia, was experiencing symptoms of chest pain and chest discomfort for the last several months. He underwent myocardial perfusion imaging stress test in May of 2019 and that revealed apical ischemia. He underwent heart catheterization at that point and that revealed intermediate to severe disease involving the mid LAD. Maximized medical treatment was advised at that point. He was seen in the office recently and he continues to have chest pain with exertion. He is scheduled to undergo a heart catheterization as an outpatient but he ended up in the hospital with chest pain. Because of that, a heart catheterization was advised. APPROACH: Right radial artery. COMPLICATIONS: None. LEVEL OF SEDATION: Moderate with sedation length of 30 to 42 minutes. PROCEDURE DESCRIPTION: After obtaining an informed consent, the patient was brought to cardiac labeling associate. The right radial artery was cannulated using micropuncture technique and a micropuncture wire passed easily, then I placed a 6-Sami sheath 11 cm in the right radial artery and I gave the patient 10,000 of heparin IV and 2 mg of verapamil IA. I did after that selective right and left coronary angiogram using JR4 and JL3.5 catheters. Left heart catheterization was performed using 6-Sami pigtail catheter. The procedure was completed without any complication. CORONARY ANGIOGRAM: 1. The right coronary artery is a medium caliber vessel and is a dominant vessel and appears to be angiographically normal. 2. The left main appeared to be angiographically normal. It bifurcates into the circumflex and left anterior descending artery. 3. Left circumflex is a large caliber vessel, a dominant vessel. The proximal circumflex appeared to be normal. The mid circumflex is normal and gives rise into a large first OM branch which appeared to be angiographically normal. The circumflex continued after that distally and appeared to be normal and bifurcates into PDA and PLV branches both are angiographically normal. 4. The LAD the proximal LAD appeared to be angiographically normal. It gives rise into a large diagonal branch which seems to be normal. The mid LAD has a lesion appeared to be in the range of 50%. The LAD in the mid portion is stented with mild in-stent restenosis. Distal to that area, there is a lesion appeared to be in the range of 70%. HEMODYNAMICS: The left ventricular end-diastolic pressure was 12 mmHg without gradient across the aortic valve. MMODL / IJN: [id number] /
--- NOTE | 2018-11-18 01:57 | LTR ---
November 17, 2018. Dear Stephanie: RE: Andrew Marcus Dear Dr. Brown: Mr. Andrew Velazquez presented to [facility] with chest discomfort and I did perform heart catheterization and stenting of the LAD. Thank you for allowing us to participate in his care. Please do not hesitate to contact us. Sincerely, Anson Vazquez M.D. SUE / LINDSAY: [id number] /
[2018-11-18 04:00] VITALS: TEMP 97.8
[2018-11-18] MEDS: PANTOPRAZOLE 40 MG TABLET PO SCH (06:11)
[2018-11-18] MEDS: VIT A,C & E-LUTEIN-MINERALS 1 EACH TAB PO SCH (08:45)
[2018-11-18] MEDS: TAMSULOSIN 0.4 MG CAP.ER.24H PO SCH ×2 (08:45→08:49)
[2018-11-18] MEDS: ISOSORBIDE MONONITRATE ER 30 MG TAB.ER.24H PO SCH (08:45)
[2018-11-18] MEDS: ATORVASTATIN 80 MG TAB PO SCH (08:45)
[2018-11-18] MEDS: METOPROLOL TARTRATE 25 MG TAB PO SCH (08:45)
[2018-11-18] MEDS ORDERED: ASPIRIN 81 MG PO SCH (09:00)
[2018-11-18] MEDS: SODIUM CHLORIDE 0.9% 1,000 ML IV SCH (11:37)
[2018-11-18] MEDS: HEPARIN SOD,PORK IN 0.45% NACL 25,000 UNIT in 0.45% NACL 1 250ML.BAG IV SCH (11:37)
[2018-11-18] MEDS: MULTIVITAMINS, THERA 1 EACH TAB PO SCH (11:56)
[2018-11-18 12:08] VITALS: BP 105/51; PULSE 57
--- NOTE | 2018-11-18 14:40 | P.PN ---
Subjective Patient is doing well. No chest discomfort dizziness lightheadedness or palpitations He's been ambulating the hallways On examination pulse rate in the 60s Normal respirations Blood pressure 105 over 1 mmHg Breath sounds are clear no rhonchi no crackles Heart sounds are normal no murmurs or gallops. Abdomen soft nontender Extremities warm no edema Impression non-Q-wave myocardial infarction Status post coronary stenting Preserved systolic function No arrhythmias on telemetry Normal cardiac examination no murmurs From a cardiac standpoint.: Current medications he does not need Imdur Continue all other medications including dual antiplatelet therapy with aspirin and Plavix as well as atorvastatin and beta blockers The only medication to be discontinued is in the Follow-up Dr. Lebron as an outpatient Objective - Vital Signs Vital signs: Vital Signs Temp 97.8 F 11/18/18 08:42 Pulse 57 L 11/18/18 12:00 Resp 18 11/18/18 12:00 BP 105/51 11/18/18 12:00 Pulse Ox 96 11/18/18 12:00 Intake & Output 11/17/18 11/18/18 11/18/18 18:59 06:59 18:59 Intake Total 400 160 510 Balance 400 160 510 Weight 100.6 kg Intake: IV 200 160 0.9 160 Oral 510 Other 200 Other: Voiding Method Toilet Toilet # Voids 1 1 - Labs CBC & Chem 7: 11/16/18 11:04 11/18/18 06:12
[2018-11-18 15:19] VITALS: BMI 31.4
[2018-11-18] MEDS ORDERED: CLOPIDOGREL 75 MG TAB PO SCH (19:09)
== END 2018-11-18 16:21 | disposition home or self-care (01) ==
LOC: EC 10:23 → 1SOBS 13:04 → 3SCARD 11-17 19:06
PROVIDERS: ADMIT Internal Medicine; ATTEND Internal Medicine
DX: I21.4 Non-ST elevation (NSTEMI) myocardial infarction (principal); I25.110 Atherosclerotic heart disease of native coronary artery with unstable angina pectoris; I10 Essential (primary) hypertension; E78.5 Hyperlipidemia, unspecified; J45.909 Unspecified asthma, uncomplicated; K22.70 Barrett's esophagus without dysplasia; R73.03 Prediabetes; R00.1 Bradycardia, unspecified; I44.0 Atrioventricular block, first degree; E66.9 Obesity, unspecified; Z68.31 Body mass index [BMI] 31.0-31.9, adult; F17.210 Nicotine dependence, cigarettes, uncomplicated; R91.8 Other nonspecific abnormal finding of lung field; Z79.82 Long term (current) use of aspirin; Z79.899 Other long term (current) drug therapy; Z88.0 Allergy status to penicillin; Z88.8 Allergy status to other drugs, medicaments and biological substances; Z91.013 Allergy to seafood; Z86.010 Personal history of colon polyps; Z98.41 Cataract extraction status, right eye; Z95.5 Presence of coronary angioplasty implant and graft; Z98.42 Cataract extraction status, left eye; Z80.9 Family history of malignant neoplasm, unspecified
CPT/HCPCS: 96366 ×2; 96376; 96365; 99291; 36415; 94760; 93005; 93306; 93458; 85347; 85379; 83880; 80061; 80053; 82565; 82550; 83735; 84484; 85025; 85610; 85730 ×2; 71046; G0378 ×4; C9600; C1887; C1769 ×2; C1874; C1894; J2250; J1644 ×3; J2930; J2001; Q9967

== ENCOUNTER → 2020-04-04 | Outpatient (CLI) | payer MEDICARE ==
[2020-04-04 07:59] LABS: Basophils # (A) 0.1 k/uL (0-0.2); Basophils % (A) 1 %; Eosinophils # (A) 0.2 k/uL (0-0.7); Eosinophils % (A) 2 %; HCT 47.5 % (39.0-53.0); HGB 15.6 gm/dL (13.0-17.5); Lymphocytes # (A) 3.3 k/uL (1.0-4.8); Lymphocytes % (A) 26 %; MCH 30.5 pg (25.0-35.0); MCHC 32.9 g/dL (31.0-37.0); MCV 92.6 fL (80.0-100.0); Mean Platelet Volume 7.9; Monocytes # (A) 0.8 k/uL (0-1.0); Monocytes % (A) 6 %; Neutrophils # (A) 7.9 k/uL (1.3-7.7); Neutrophils % (A) 63 %; Platelet Count 158 k/uL (150-450); RBC 5.13 m/uL (4.30-5.90); RDW 13.3 % (11.5-15.5); WBC 12.5 k/uL (3.8-10.6)
[2020-04-04 12:49] LABS: African American GFR (CKD) 104.2 (60.0-200.0); Albumin 4.5 g/dL (3.80-4.90); Albumin/Globulin Ratio 1.61 (1.60-3.17); Anion Gap 12.5 mmol/L (4.00-12.00); BUN/Creat Ratio 31.25 Ratio (12.00-20.00); Bilirubin, Conjugated 0.3 mg/dL (0.20-0.40); Calcium 9.5 mg/dL (8.7-10.3); Carbon Dioxide 25.5 mmol/L (21.6-31.8); Chol/HDL Ratio 2.7; Globulin 2.8 g/dL (1.6-3.3); Non-African American GFR(CKD) 89.9 (60.0-200.0); Total Bilirubin 0.8 mg/dL (0.3-1.2); Total Protein 7.3 g/dL (6.2-8.2)
[2020-04-04 12:57] LABS: T4, Free (Free Thyroxine) 0.9 ng/dL (0.80-1.80)
[2020-04-04 12:58] LABS: PSA Annual Screen 0.8 ng/mL (0.0-4.0)
[2020-04-04 15:49] LABS: Hemoglobin A1C 6.6 % (4.0-6.0)
== END | disposition home or self-care (01) ==
LOC: LABWHC1 07:06
PROVIDERS: ATTEND Internal Medicine
DX: Z00.00 Encounter for general adult medical examination without abnormal findings (principal); I10 Essential (primary) hypertension; R05 Cough; R53.83 Other fatigue; E78.00 Pure hypercholesterolemia, unspecified; Z12.5 Encounter for screening for malignant neoplasm of prostate; R73.9 Hyperglycemia, unspecified
CPT/HCPCS: 84439; 80061; 80053; 84443; 85025; 82306; 83036; 36415; G0103

== ENCOUNTER 2020-08-07 06:38 | Day surgery (SDC) | payer MEDICARE ==
[2020-08-05 14:25] VITALS: BMI 31.1
[~2020-08-07 06:38] MED LIST changes: -ALPRAZolam 0.25 MG TAB PO PRN; -ALPRAZolam 0.5 MG TAB PO PRN; -ASPIRIN 325 MG TAB PO STA; -ATORVASTATIN 80 MG TAB PO STA; -HEPARIN SODIUM 1,000 UN/ML (10ML VL) IV ONE; -HEPARIN SODIUM 1,000 UN/ML (10ML VL) ONE; -IOPAMIDOL-370 125ML BTL INJ ONE; +LACTATED RINGERS 1,000 ML IV SCH; +LIDOCAINE 1% (10MG/ML) FOR IV START INTRADERMA PRN; -LIDOCAINE 1% (PF) 10MG/ML VIAL SQ ONE; -LIDOCAINE 1% INJ 10MG/ML (20 ML MDV) ONE; -MIDAZOLAM 2 MG/2 ML VIAL IV ONE; -MIDAZOLAM 2 MG/2 ML VIAL ONE; -NITROGLYCERIN SL TABS 0.4 MG TAB SUBLINGUAL PRN; -RX INFO: IV CONTRAST WAS GIVEN 1 EACH MISC MISCELLANE PRN; -SODIUM CHLORIDE 0.9% 1,000 ML IV SCH; -SODIUM CHLORIDE 0.9% 1,000 ML in EMPTY BAG 1 BAG IV ONE; -VERAPAMIL 2.5 MG/ML 2 ML AMP ONE; -VERAPAMIL SYRINGE (5 MG/10 ML) INTRAARTER ONE; -methylPREDNISolone SOD SUCCI 125 MG/2 ML VIAL ONE
[2020-08-07 07:29] VITALS: TEMP 97.9
[2020-08-07 07:31] LABS: Glucose,Whole Blood 108 mg/dL (75-99)
[2020-08-07] MEDS ORDERED: LIDOCAINE 1% INJ 10MG/ML (20 ML MDV) ONE (07:36)
[2020-08-07] MEDS ORDERED: PROPOFOL 10 MG/ML 20 ML VIAL IV ONE (07:36)
--- NOTE | 2020-08-07 07:48 | P.PCN ---
Date of Procedure: 08/07/20 Procedure(s) Performed: BRIEF HISTORY: Patient is a 69-year-old, pleasant, white male scheduled for an upper endoscopy as a part of evaluation of long-standing history of GERD and surveillance of Hammond's esophagus.. PROCEDURE PERFORMED: Esophagogastroduodenoscopy with multiple biopsies. PREOPERATIVE DIAGNOSIS: GERD/long-standing history of Hammond's esophagus. IV sedation per anesthesia. PROCEDURE: After informed consent was obtained, the patient was brought into the endoscopy unit. IV sedation was administered by Anesthesia under continuous monitoring. Initially the Olympus GIF-140 video endoscope was inserted into the mouth. Esophagus intubated without any difficulty. It was gradually advanced into the stomach and duodenum and carefully examined. The bulb and the second part of the duodenum appeared normal. The scope at this time was withdrawn to the stomach, adequately insufflated with air, and upon careful examination, mucosa of the antrum, body, cardia and the fundus appeared normal. The scope was then withdrawn into the esophagus. Moderate size hiatal hernia noted. The GE j unction was located at 35 cm from the incisors. There was long segment of Hammond's esophagus extending from 35-40 cm from the incisors and multiple biopsies were done from this area. The rest of the esophagus appeared normal. There were no erosions or ulcerations seen and the patient tolerated the procedure well. IMPRESSION: 1. Long segment Hammond's esophagus extending from 35-40 cm from the incisors status post multiple biopsies to rule out dysplasia. 2. Moderate size hiatal hernia. RECOMMENDATIONS: The findings of this examination were discussed with the patient as well as his family. He was advised to follow with the biopsy results. If the biopsy does not show any evidence of dysplasia, he can have a repeat upper endoscopy in 2 years. In the meantime he'll continue on Prilosec 20 mg daily and continue to follow antireflux measures..
[2020-08-07 08:08] VITALS: BP 123/69; PULSE 70; RESP 17
== END 2020-08-07 08:50 ==
LOC: ORWHC2ENDO 06:38
PROVIDERS: ATTEND Internal Medicine Gastroenterology
DX: K22.70 Barrett's esophagus without dysplasia (principal); K21.9 Gastro-esophageal reflux disease without esophagitis; K44.9 Diaphragmatic hernia without obstruction or gangrene; I10 Essential (primary) hypertension; I25.10 Atherosclerotic heart disease of native coronary artery without angina pectoris; E78.5 Hyperlipidemia, unspecified; Z88.0 Allergy status to penicillin; Z88.8 Allergy status to other drugs, medicaments and biological substances; Z95.5 Presence of coronary angioplasty implant and graft; F17.200 Nicotine dependence, unspecified, uncomplicated; E11.9 Type 2 diabetes mellitus without complications; Z79.82 Long term (current) use of aspirin; Z79.899 Other long term (current) drug therapy; Z98.890 Other specified postprocedural states
CPT/HCPCS: 88305; 43239; J2001; J2704

== ENCOUNTER 2021-07-18 06:03 | Day surgery (SDC) | payer MEDICARE, OTHER ==
[2021-07-16 11:46] VITALS: BMI 32.5
[2021-07-18 06:46] VITALS: TEMP 97.7
[2021-07-18] MEDS: LACTATED RINGERS 1,000 ML IV SCH ×2 (06:46→06:54)
[2021-07-18 06:48] LABS: Glucose,Whole Blood 114 mg/dL (75-99)
[2021-07-18] MEDS ORDERED: PROPOFOL 10 MG/ML 20 ML VIAL IV ONE (06:55)
--- NOTE | 2021-07-18 07:18 | P.PCN ---
Date of Procedure: 07/18/21 Procedure(s) Performed: BRIEF HISTORY: Patient is a 70-year-old pleasant white male scheduled for an elective colonoscopy as a part of value should prior history of colon polyps. Last colonoscopy was 4 years ago. PROCEDURE PERFORMED: Colonoscopy. PREOPERATIVE DIAGNOSIS: History of colon polyps. IV sedation per Anesthesia. PROCEDURE: After informed consent was obtained, the patient, was brought into the endoscopy unit. IV sedation was administered by Anesthesia under continuous monitoring. Digital rectal examination was normal. Initially the Olympus CF-160 flexible video colonoscope was then inserted in the rectum, gradually advanced into the cecum without any difficulty. Careful examination was performed as the scope was gradually being withdrawn. Ileocecal valve and the appendiceal orifice were visualized and appeared normal. Prep was excellent. Mucosa of the cecum, ascending colon, transverse colon, descending colon, sigmoid colon, and rectum appeared normal. At her sigmoid diverticulosis Retroflexion was performed in the rectum and no lesions were seen. The patient tolerated the procedure well. IMPRESSION: Normal-appearing colon from rectum to cecum with no evidence of colorectal neoplasia Scattered sigmoid diverticulosis. RECOMMENDATIONS: Findings of this examination were discussed with the patient as well as his family. He was advised to have a repeat screening colonoscopy in 5 years because of the prior history of colon polyps..
[2021-07-18 07:41] VITALS: BP 124/71; PULSE 71; RESP 14
== END 2021-07-18 08:05 | disposition home or self-care (01) ==
LOC: ORWHC2ENDO 06:03
PROVIDERS: ATTEND Internal Medicine Gastroenterology
DX: Z12.11 Encounter for screening for malignant neoplasm of colon (principal); K57.90 Diverticulosis of intestine, part unspecified, without perforation or abscess without bleeding; I25.10 Atherosclerotic heart disease of native coronary artery without angina pectoris; I10 Essential (primary) hypertension; K21.9 Gastro-esophageal reflux disease without esophagitis; K22.70 Barrett's esophagus without dysplasia; E78.5 Hyperlipidemia, unspecified; J45.909 Unspecified asthma, uncomplicated; Z86.010 Personal history of colon polyps; Z88.0 Allergy status to penicillin; Z79.899 Other long term (current) drug therapy; Z79.82 Long term (current) use of aspirin
CPT/HCPCS: 45378; J2704

== ENCOUNTER 2022-08-10 06:16 | Day surgery (SDC) | payer OTHER ==
[2022-08-06 09:42] VITALS: BMI 31.8
[2022-08-10] MEDS ORDERED: LIDOCAINE 1% (10MG/ML) FOR IV START INTRADERMA PRN (06:18)
[2022-08-10] MEDS ORDERED: LACTATED RINGERS 1,000 ML IV SCH (06:18)
[2022-08-10 07:24] VITALS: TEMP 96.8
[2022-08-10] MEDS ORDERED: PROPOFOL 10 MG/ML 20 ML VIAL IV ONE (07:39)
--- NOTE | 2022-08-10 07:49 | P.PCN ---
Date of Procedure: 08/10/22 Procedure(s) Performed: BRIEF HISTORY: Patient is a 71-year-old, pleasant, white male scheduled for an upper endoscopy as a part of evaluation of long-standing history of GERD and surveillance of Hammond's esophagus. Last EGD was in 5 years ago. He is maintained on omeprazole 20 mg daily and denies any heartburn, dysphagia.. PROCEDURE PERFORMED: Esophagogastroduodenoscopy with biopsy. PREOPERATIVE DIAGNOSIS: GERD/Hammond's esophagus. IV sedation per anesthesia. PROCEDURE: After informed consent was obtained, the patient was brought into the endoscopy unit. IV sedation was administered by Anesthesia under continuous monitoring. Initially the Olympus GIF-140 video endoscope was inserted into the mouth. Esophagus intubated without any difficulty. It was gradually advanced into the stomach and duodenum and carefully examined. The bulb and the second part of the duodenum appeared normal. The scope at this time was withdrawn to the stomach, adequately insufflated with air, and upon careful examination, mucosa of the antrum, body, cardia and the fundus appeared normal. The scope was then withdrawn into the esophagus. Small hiatal hernia noted. The GE junction was located at 40 cm from the incisors. It was a long segment of Hammond's esophagus extending from 35-40 cm from the incisors and multiple biopsies were done from this area. The esophagus appeared normal. There were no erosions or ulcerations seen and the patient tolerated the procedure well. IMPRESSION: 1. Long segment Hammond's esophagus extending from 35-40 cm from the incisors status post multiple biopsies to rule out dysplasia. 2. Small hiatal hernia. RECOMMENDATIONS: The findings of this examination were discussed with the patient as well as his family. He was advised to follow with the biopsy results. If the biopsy confirms the presence of Hammond's esophagus he can have a repeat upper endoscopy in 3 years. In the meantime he will continue with omeprazole 20 mg daily and follow antireflux measures.
[2022-08-10 08:42] VITALS: BP 100/62; PULSE 68; RESP 20
== END 2022-08-10 08:25 | disposition home or self-care (01) ==
LOC: ORWHC2ENDO 06:16
PROVIDERS: ATTEND Internal Medicine Gastroenterology
DX: K29.50 Unspecified chronic gastritis without bleeding (principal); K22.70 Barrett's esophagus without dysplasia; K44.9 Diaphragmatic hernia without obstruction or gangrene
CPT/HCPCS: 43239; J2704; 88305

== ENCOUNTER 2023-03-14 15:09 | Inpatient (IN) | payer OTHER, MEDICARE ==
--- NOTE | 2023-03-14 15:42 | ED ---
General Adult HPI - General Chief complaint: Abdominal Pain Stated complaint: severe abdominal pain Time Seen by Provider: 03/14/23 15:32 Source: patient Mode of arrival: ambulatory Limitations: no limitations - History of Present Illness Initial comments: Dictation was produced using [employer] dictation software. please excuse any grammatical, word or spelling errors. Chief Complaint: 72-year-old male presents emergency Department with right lower quadrant abdominal pain History of Present Illness: Patient 72-year-old male presents with right lower quadrant abdominal pain. Patient states he hasn't had a bowel movement for 5 days. Recently admitted at outside hospital for new onset A. fib. Patient had a fever at home measurement thermometer by . Patient has been having bilious vomiting. Denies any history of abdominal surgery. No diarrhea. Denies any genital pain. The ROS documented in this emergency department record has been reviewed and confirmed by me. Those systems with pertinent positive or negative responses have been documented in the HPI. All other systems are other negative and/or noncontributory. - Related Data Home Medications Medication Instructions Recorded Confirmed Aspirin 81 mg PO HS 06/20/14 08/10/22 Metoprolol Tartrate [Lopressor] 25 mg PO BID 06/20/14 08/10/22 Montelukast [Singulair] 10 mg PO HS 06/20/14 08/10/22 Omeprazole [PriLOSEC] 20 mg PO AC-BRKFST 06/20/14 08/10/22 lisinopriL [Zestril] 10 mg PO HS 06/20/14 08/10/22 Multivitamins, Thera [Multivitamin 1 tab PO DAILY 11/16/18 08/10/22 (formulary)] Nitroglycerin Sl Tabs [Nitrostat] 0.4 mg SUBLINGUAL Q5M PRN 11/16/18 08/10/22 Rosuvastatin Calcium [Crestor] 40 mg PO DAILY 11/16/18 08/10/22 Albuterol Inhaler [Ventolin Hfa 2 puff INHALATION RT-QID PRN 07/16/21 08/10/22 Inhaler] Allergies Allergy/AdvReac Type Severity Reaction Status Date / Time Penicillins Allergy Rash/Hives Verified 03/14/23 15:23 shellfish derived [Shellfish] AdvReac Anaphylaxis Verified 03/14/23 15:23 vitamin B Allergy Rash/Hives Uncoded 03/14/23 15:23 Review of Systems ROS Statement: Those systems with pertinent positive or pertinent negative responses have been documented in the HPI. ROS Other: All systems not noted in ROS Statement are negative. Past Medical History Past Medical History: Atrial Fibrillation, Asthma, Chest Pain / Angina, GERD/Reflux, Hyperlipidemia, Hypertension, Osteoarthritis (OA), Respiratory Di sorder Additional Past Medical History / Comment(s): Hx Hammond's esophagus, hx colon polyps, prediabetes, varicose veins. INTERSTITIAL PULMONARY DISEASE History of Any Multi-Drug Resistant Organisms: None Reported Past Surgical History: Heart Catheterization, Heart Catheterization With Stent, Hernia Repair Additional Past Surgical History / Comment(s): Chest wound repair-1966, bilateral cataracts removed, 3 cardiac stents,mark inguinal hernia repairs, COLONOSCOPY/EGD, Past Anesthesia/Blood Transfusion Reactions: Motion Sickness, Postoperative Nausea & Vomiting (PONV) Date of Last Stent Placement:: 2018 Past Psychological History: No Psychological Hx Reported Smoking Status: Former smoker - Past Family History Sister(s) Family Medical History: Cancer Father Family Medical History: Cancer Brother(s) Family Medical History: Cancer Additional Family Medical History / Comment(s): 2 brothers had cancer. General Exam - General Exam Comments Initial Comments: PHYSICAL EXAM: General Impression: Alert and oriented x3, not in acute distress HEENT: Normocephalic atraumatic, extra-ocular movements intact, pupils equal and reactive to light bilaterally, mucous membranes moist. Cardiovascular: Heart regular rate and rhythm Chest: Able to complete full sentences, no retractions, no tachypnea Abdomen: abdomen soft, palpatory tenderness with rebound tenderness to the right lower quadrant non-distended, no organomegaly Musculoskeletal: Pulses present and equal in all extremities, no peripheral edema Motor: no focal deficits noted Neurological: CN II-XII grossly intact, no focal motor or sensory deficits noted Skin: Intact with no visualized rashes Psych: Normal affect and mood Limitations: no limitations Course Vital Signs 03/14/23 03/14/23 03/14/23 15:15 16:51 18:16 Temperature 98.1 F 100.6 F H 99.8 F H Pulse Rate 110 H 82 Respiratory 19 18 Rate Blood Pressure 128/77 156/96 O2 Sat by Pulse 97 96 Oximetry 03/14/23 19:00 Temperature 102.2 F H Pulse Rate 94 Respiratory 16 Rate Blood Pressure 134/83 O2 Sat by Pulse 96 Oximetry EKG Findings - EKG Comments: EKG Findings:: My EKG interpretation: Ventricular rate 108, a flutter, QRS 92, QTC 376. no QTC prolongation, no ST or T-wave changes noted. Overall, this EKG is unremarkable Medical Decision Making - Medical Decision Making Was pt. sent in by a medical professional or institution (, PA, HEMSTITCHER, urgent care, hospital, or penitentiary...) When possible be specific @ -No Did you speak to anyone other than the patient for history (EMS, parent, family, police, friend...)? What history was obtained from this source @ -No Did you review nursing and triage notes (agree or disagree)? Why? @ -I reviewed and agree with nursing and triage notes Were old charts reviewed (outside hosp., previous admission, EMS record, old EKG, old radiological studies, urgent care reports/EKG's, penitentiary records)? Report findings @ -No old charts were reviewed Differential Diagnosis (chest pain, altered mental status, abdominal pain women, abdominal pain men, vaginal bleeding, musculoskeletal, weakness, fever, dyspnea, syncope, headache, dizziness, GI bleed, back pain, seizure, CVA, palpatations, mental health)? @ -Differential Abdominal Pain Men: Appendicitis, cholecystitis, diverticulosis, ischemic bowel, pancreatitis, hepatitis, UTI, gastroenteritis, AAA, incarcerated hernia, bowel obstruction, constipation, inflammatory bowel, hepatitis, peptic ulcer disease, splenic infarction, perforated viscus, testicular torsion, this is not meant to be an all-inclusive list EKG interpreted by me (3pts min.). @ -None done X-rays interpreted by me (1pt min.). @ -None done CT interpreted by me (1pt min.). @ -CT of the abdomen and pelvis shows inflammation around the gallbladder suggesting acute cholecystitis U/S interpreted by me (1pt. min.). @ -Ultrasound of the right upper quadrant suggests acute cholecystitis What testing was considered but not performed or refused? (CT, X-rays, U/S, labs)? Why? @ -None What meds were considered but not given or refused? Why? @ -None Did you discuss the management of the patient with other professionals (professionals i.e. , PA, HEMSTITCHER, lab, RT, psych nurse, social studies teacher, tobacco baler, teacher, code enforcement officer, lining caser)? Give summary @ -Case discussed with Dr. Castellon who requests the patient be admitted to Dr. Hopson. Was smoking cessation discussed for >3mins.? @ -No Was critical care preformed (if so, how long)? @ -No Were there social determinants of health that impacted care today? How? (Homelessness, low income, unemployed, alcoholism, drug addiction, transpo rtation, low edu. Level, literacy, decrease access to med. care, fpc, rehab)? @ -No Was there de-escalation of care discussed even if they declined (Discuss DNR or withdrawal of care, Hospice)? DNR status @ -No What co-morbidities impacted this encounter? (DM, HTN, Smoking, COPD, CAD, Cancer, CVA, ARF, Chemo, Hep., AIDS, mental health diagnosis, sleep apnea, morbid obesity)? @ -None Was patient admitted / discharged? Hospital course, mention meds given and route, prescriptions, significant lab abnormalities, going to OR and other pertinent info. @ -42-year-old male presents with right abdominal pain. He does have fever. Auditory evaluation obtained showed leukocytosis 17.3. Rest labs within acceptable limits. CT imaging and ultrasound imaging suggest acute cholecystitis. Patient started antibiotics. We'll be admitted with medicine consult. Undiagnosed new problem with uncertain prognosis? @ -No Drug Therapy requiring intensive monitoring for toxicity (Heparin, Nitro, Insulin, Cardizem)? @ -No Were any procedures done? @ -No Diagnosis/symptom? Acute, or Chronic, or Acute on Chronic? Uncomplicated (without systemic symptoms) or Complicated (systemic symptoms)? @ -1 aacute cholecystitis Side effects of treatment? @ -No Exacerbation, Progression, or Severe Exacerbation? @ -No Poses a threat to life or bodily function? How? (Chest pain, USA, VT, pneumonia, PE, COPD, DKA, ARF, appy, cholecystitis, CVA, Diverticulitis, Homicidal, Suicidal, threat to staff... and all critical care pts) @ -yes - Lab Data Result diagrams: 03/14/23 15:55 03/14/23 15:55 Lab Results 03/14/23 03/14/23 03/14/23 Range/Units 15:55 15:55 15:55 WBC 17.3 H (3.8-10.6) k/uL RBC 4.99 (4.30-5.90) m/uL Hgb 16.2 (13.0-17.5) gm/dL Hct 47.1 (39.0-53.0) % MCV 94.4 (80.0-100.0) fL MCH 32.5 (25.0-35.0) pg MCHC 34.4 (31.0-37.0) g/dL RDW 13.0 (11.5-15.5) % Plt Count 152 (150-450) k/uL MPV 9.4 Neutrophils % 81 % Lymphocytes % 7 % Monocytes % 9 % Eosinophils % 1 % Basophils % 0 % Neutrophils # 14.0 H (1.3-7.7) k/uL Lymphocytes # 1.2 (1.0-4.8) k/uL Monocytes # 1.6 H (0-1.0) k/uL Eosinophils # 0.1 (0-0.7) k/uL Basophils # 0.0 (0-0.2) k/uL Sodium 133 L (137-145) mmol/L Potassium 4.7 (3.5-5.1) mmol/L Chloride 99 (98-107) mmol/L Carbon Dioxide 25 (22-30) mmol/L Anion Gap 9 mmol/L BUN 21 H (9-20) mg/dL Creatinine 0.74 (0.66-1.25) mg/dL Est GFR (CKD-EPI)AfAm >90 (>60 ml/min/1.73 sqM) Est GFR (CKD-EPI)NonAf >90 (>60 ml/min/1.73 sqM) Glucose 114 H (74-99) mg/dL Plasma Lactic Acid Kris 1.5 (0.7-2.0) mmol/L Calcium 8.7 (8.4-10.2) mg/dL Total Bilirubin 1.6 H (0.2-1.3) mg/dL AST 46 (17-59) U/L ALT 33 (4-49) U/L Alkaline Phosphatase 91 (38-126) U/L Total Protein 7.7 (6.3-8.2) g/dL Albumin 3.9 (3.5-5.0) g/dL Disposition Clinical Impression: Cholecystitis Disposition: ADMITTED IP TO THIS [facility] Condition: Fair Referrals: Riccardo Brown MD [Primary Care Provider] - 1-2 days Decision Time: 19:00
[2023-03-14 17:01] LABS: Basophils % (A) 0 %; Eosinophils # (A) 0.1 k/uL (0-0.7); Eosinophils % (A) 1 %; HCT 47.1 % (39.0-53.0); HGB 16.2 gm/dL (13.0-17.5); Lymphocytes # (A) 1.2 k/uL (1.0-4.8); Lymphocytes % (A) 7 %; MCH 32.5 pg (25.0-35.0); MCHC 34.4 g/dL (31.0-37.0); MCV 94.4 fL (80.0-100.0); Mean Platelet Volume 9.4; Monocytes # (A) 1.6 k/uL (0-1.0); Monocytes % (A) 9 %; Neutrophils % (A) 81 %; Platelet Count 152 k/uL (150-450); RBC 4.99 m/uL (4.30-5.90); WBC 17.3 k/uL (3.8-10.6)
[2023-03-14 17:05] LABS: ALT 33 U/L (4-49); AST 46 U/L (17-59); African American GFR (CKD) >90 (>60 ml/min/1.73 sqM); Albumin 3.9 g/dL (3.5-5.0); Alkaline Phosphatase 91 U/L (38-126); Anion Gap 9 mmol/L; Blood Urea Nitrogen 21 mg/dL (9-20); Calcium 8.7 mg/dL (8.4-10.2); Carbon Dioxide 25 mmol/L (22-30); Chloride 99 mmol/L (98-107); Glucose 114 mg/dL (74-99); Non-African American GFR(CKD) >90 (>60 ml/min/1.73 sqM); Potassium 4.7 mmol/L (3.5-5.1); Sodium 133 mmol/L (137-145); Total Bilirubin 1.6 mg/dL (0.2-1.3); Total Protein 7.7 g/dL (6.3-8.2)
[2023-03-14] MEDS ORDERED: ACETAMINOPHEN TAB 500 MG TAB PO STA (17:52)
--- NOTE | 2023-03-14 18:06 | CT ---
EXAMINATION TYPE: CT abdomen pelvis w con CT DLP: 1672.1 mGycm, Automated exposure control for dose reduction was used. DATE OF EXAM: 03/14/2023 5:57 PM COMPARISON: CT abdomen pelvis most recent from 10/21/2011 . CLINICAL INDICATION:Male, 72 years old with history of RLQ abdominal pain; RLQ pain, fever TECHNIQUE: Standard CT of the abdomen and pelvis following the administration of 100 cc of Isovue 3 00 IV contrast material. Coronal and sagittal reformats were performed. FINDINGS: LOWER CHEST: Pulmonary vascular congestion with bibasilar subsegmental atelectasis. Cardiomegaly. No pericardial effusion. ABDOMEN LIVER: Unremarkable GALLBLADDER AND BILE DUCTS: Circumferential wall thickening of the gallbladder with surrounding fat s tranding. No biliary ductal dilatation. Proximal duodenal diverticula. PANCREAS: Unremarkable. SPLEEN: Unremarkable. ADRENAL GLANDS: Unremarkable. KIDNEYS AND URETERS: No evidence of hydronephrosis or renal calculus. The kidneys enhance without niraj picious focal lesion. Contrast demonstrated within both collecting systems on the delayed phase. PELVIS BLADDER: Unremarkable REPRODUCTIVE: Prostate is enlarged in size measuring 5.8 cm in transverse dimension. Calcifications w ithin the prostate. There is an indentation upon the urinary bladder base. ABDOMEN & PELVIS STOMACH AND BOWEL: Small hiatal hernia, duodenum is unremarkable. The appendix is within normal limit s. No focal bowel wall thickening. Distal colonic diverticulosis without evidence for acute diverticu litis. Likely calcified peritoneal mice within the left lower quadrant. No evidence of bowel obstruct ion. PERITONEUM: No evidence of pneumoperitoneum or free fluid. VASCULATURE: Mild atherosclerotic calcifications are present throughout the abdominal aorta and its b ranches. No evidence of aortic aneurysm. MUSCULOSKELETAL: No acute osseous abnormalities LYMPH NODES: No gross evidence for lymphadenopathy. SOFT TISSUE/ABDOMINAL WALL: Unremarkable IMPRESSION: 1. Findings suggestive of acute cholecystitis with wall thickening and surrounding inflammatory mcgraw ges. This can be further evaluated with abdominal ultrasound as clinically indicated. 2. Colonic diverticulosis without evidence for acute diverticulitis. 3. Cardiomegaly with pulmonary vascular congestion.
--- NOTE | 2023-03-14 19:13 | US ---
EXAMINATION TYPE: US abdomen limited DATE OF EXAM: 03/14/2023 COMPARISON: CT abdomen pelvis 03/14/2023 CLINICAL INDICATION: Male, 72 years old with history of abnormal CT; Abd pain for 6 days, fever comes and goes, CT tonight showed possible acute cholecystitis TECHNIQUE: Multiple sonographic images of the right upper quadrant are obtained. FINDINGS: EXAM MEASUREMENTS: Liver Length: 19.1 cm Gallbladder Wall: 0.3 cm CBD: 0.6 cm Right Kidney: 10.8 x 4.1 x 4.5 cm PRESCHOOL TEACHER AIDE NOTES:Challenging scan, patient having heavy inspirations, patient's liver was high withi n ribcage and bowel gas limits views. Pancreas: not seen due to gas Liver: intercostal imaging, enlarged and heterogeneous Gallbladder: borderline wall thickness, possible sludge and probable paracolic gutter fluid Evidence for sonographic Mathur's sign: no CBD: wnl Right Kidney: limited views appear wnl Significantly limited examination. The pancreas is not visualized due to overlying bowel gas. Liver i s heterogenous and enlarged without focal lesion identified. Borderline wall thickening of the gallbl adder with sludge suggested. Trace pericholecystic fluid. Per business project manager, negative sonographic Faby y sign. Common bile duct within normal limits. Limited views of the right kidney are unremarkable. IMPRESSION: Significantly limited examination due to patient condition and overlying bowel gas. 1. Gallbladder sludge with borderline gallbladder wall thickening and trace pericholecystic fluid. P er business project manager negative sonographic Mathur sign. Findings are equivocal for acute cholecystitis. Cons ider further evaluation with nuclear medicine HIDA scan as clinically indicated. 2. Enlarged nonspecific heterogenous liver without focal lesion.
[2023-03-14] MEDS ORDERED: CEFEPIME 2 GM in SODIUM CHLORIDE 0.9% 100 ML IVPB STA (19:25)
[2023-03-14] MEDS ORDERED: NALOXONE 0.4 MG/ML 1 ML VIAL IV PRN (19:43)
[2023-03-14] MEDS ORDERED: IBUPROFEN 800 MG TAB PO STA (19:54)
--- NOTE | 2023-03-14 19:54 | ED ---
Medical Decision Making - Lab Data Result diagrams: 03/14/23 15:55 03/14/23 15:55 Lab Results 03/14/23 03/14/23 03/14/23 Range/Units 15:55 15:55 15:55 WBC 17.3 H (3.8-10.6) k/uL RBC 4.99 (4.30-5.90) m/uL Hgb 16.2 (13.0-17.5) gm/dL Hct 47.1 (39.0-53.0) % MCV 94.4 (80.0-100.0) fL MCH 32.5 (25.0-35.0) pg MCHC 34.4 (31.0-37.0) g/dL RDW 13.0 (11.5-15.5) % Plt Count 152 (150-450) k/uL MPV 9.4 Neutrophils % 81 % Lymphocytes % 7 % Monocytes % 9 % Eosinophils % 1 % Basophils % 0 % Neutrophils # 14.0 H (1.3-7.7) k/uL Lymphocytes # 1.2 (1.0-4.8) k/uL Monocytes # 1.6 H (0-1.0) k/uL Eosinophils # 0.1 (0-0.7) k/uL Basophils # 0.0 (0-0.2) k/uL Sodium 133 L (137-145) mmol/L Potassium 4.7 (3.5-5.1) mmol/L Chloride 99 (98-107) mmol/L Carbon Dioxide 25 (22-30) mmol/L Anion Gap 9 mmol/L BUN 21 H (9-20) mg/dL Creatinine 0.74 (0.66-1.25) mg/dL Est GFR (CKD-EPI)AfAm >90 (>60 ml/min/1.73 sqM) Est GFR (CKD-EPI)NonAf >90 (>60 ml/min/1.73 sqM) Glucose 114 H (74-99) mg/dL Plasma Lactic Acid Kris 1.5 (0.7-2.0) mmol/L Calcium 8.7 (8.4-10.2) mg/dL Total Bilirubin 1.6 H (0.2-1.3) mg/dL AST 46 (17-59) U/L ALT 33 (4-49) U/L Alkaline Phosphatase 91 (38-126) U/L Total Protein 7.7 (6.3-8.2) g/dL Albumin 3.9 (3.5-5.0) g/dL Disposition Clinical Impression: Cholecystitis Disposition: ADMITTED IP TO THIS HOSP Condition: Fair Referrals: Riccardo Brown MD [Primary Care Provider] - 1-2 days Procedures - Sepsis Sepsis Focused Exam #1 Time Sepsis Criteria Met: 19:53 Sepsis Focused Exam Date: 03/14/23 Sepsis Focused Exam Time: 19:53 Sepsis Focused Exam Complete: Yes Vital Signs & RN Notes Reviewed: Yes Capillary Refill: < 2 Seconds: Fingers, Toes Peripheral Pulses: Normal: Radial (R), Radial (L), Posterior Tibialis (R), Posterior Tibialis (L), Dorsalis Pedis (R), Dorsalis Pedis (L) Skin Color: Normal for Patient Respiratory Exam: normal lung sounds Cardiovascular Exam: regular rate
[2023-03-14] MEDS: SODIUM CHLORIDE 0.9% 1,000 ML IV SCH ×2 (19:56→23:48)
[2023-03-14 20:51] LABS: INR 1.2 (<1.2); Partial Thromboplastin Time 27.6 sec (22.0-30.0); Prothrombin Time 12.1 sec (9.0-12.0)
[2023-03-15] MEDS: HYDROmorphone 1 MG/ML 1 ML SYRINGE IVP PRN ×2 (06:53→19:55)
[2023-03-15] MEDS ORDERED: ALBUTEROL NEBULIZED 2.5 MG/3 ML INHALATION PRN (11:05)
--- NOTE | 2023-03-15 12:22 | P.GSHP ---
History of Present Illness H&P Date: 03/15/23 CHIEF COMPLAINT: Abdominal pain HISTORY OF PRESENT ILLNESS: This is a 72-year-old male who presented to the hospital with complaints of right upper quadrant abdominal pain that started 5 days ago. She quit he does report pain after eating also reports a decreased appetite with nausea and vomiting. He has been having chills and sweats. Patient is having fevers temp of 102.2. Color ultrasound showed gallbladder sludge will undergo bladder wall thickening and trace pericholecystic fluid. Findings are equivocal for acute cholecystitis. She also has leukocytosis. He has history of coronary disease cardiac stents history of atrial fibrillation on Eliquis at home. Last dose of Eliquis yesterday morning. PAST MEDICAL HISTORY: See below PAST SURGICAL HISTORY: See below MEDICATIONS: See below ALLERGIES: See below SOCIAL HISTORY: No illicit drug use. REVIEW OF SYSTEMS: CONSTITUTIONAL: Denies fever or chills. HEENT: Denies blurred vision, vision changes, or eye pain. Denies hemoptysis CARDIOVASCULAR: Denies chest pain or pressure. RESPIRATORY: No shortness of breath. GASTROINTESTINAL: See HPI for pertinent findings HEMATOLOGIC: Denies bleeding disorders. GENITOURINARY: Denies any blood in urine or increased urinary frequency. SKIN: Denies pruitis. Denies rash. PHYSICAL EXAM: VITAL SIGNS: Reviewed GENERAL: Well-developed in no acute distress. HEENT: No sclera icterus. Extraocular movements grossly intact. Moist buccal mucosa. Head is atraumatic, normocephalic. No nasal drainage. ABDOMEN: Soft. Nondistended. RUQ tenderness with palpation NEUROLOGIC: Alert and oriented. Cranial nerves II through XII grossly intact. LABORATORY DATA: WBC 17.3 HGB 16.2 plt 152 Na 133 k 4.7 plt 0.74 Total bili 1.6 AST 46 ALT 33 IMAGING: Computed tomography scan and pelvis findings shows acute cholecystitis with wall thickening and surrounding inflammatory changes. Colonic diverticulosis without evidence for acute diverticulitis. Cardiomegaly with pulmonary vascular congestion. Abdominal ultrasound gallbladder sludge with borderline gallbladder wall thickening and trace pericholecystic fluid. Negative Mathur sign. Findings are equivocal for acute cholecystitis. Enlarged nonspecific Zacarias liver without focal lesion. ASSESSMENT: 1. Acute cholecystitis 2. History of atrial fibrillation on Eliquis at home PLAN: -Patient scheduled for laparoscopic cholecystectomy tomorrow with Dr. Hopson due to taking anticoagulation. Recommend being off anticoagulation for 48 hours prior to surgical intervention -Patient continue clear liquid diet today -Nothing by mouth after midnight -Continue antibiotics -Continue to hold Eliquis -Continue supportive care -Medicine service on consult for medical management Physician Glazier Stained Glass note has been reviewed by physician. Signing provider agrees with the documented findings, assessment, and plan of care. I have personally seen and examined the patient, reviewed the MEDICAL AFFAIRS MANAGER /PAs history, exam and MDM and agree with the assessment and plan as written. Based on total visit time, I have performed more than 50% of the visit. As above: Patient transferred to [facility] because of fevers and tachycardia. Patient with sepsis related to underlying acute cholecystitis. Surgery was held today because of the anticoagulation given yesterday. He appears comfortable. Says he has no pain currently. Surgery is scheduled for tomorrow. Discussed the open cholecystectomy may be required given the degree of inflammatory changes expected to be found. Await cardiac evaluation and clearance. Continue antibiotics and supportive care. Hold anticoagulation. We'll proceed with laparoscopic, possible open cholecystectomy tomorrow. Risks of bleeding, infection, bile leak, bile duct injury, retained common bile duct stone, trocar injury, conversion to an open procedure, hernia, anesthesia related complications were reviewed. The patient understands and wishes to proceed. Past Medical History Past Medical History: Atrial Fibrillation, Asthma, Chest Pain / Angina, ESTHER D/Reflux, Hyperlipidemia, Hypertension, Osteoarthritis (OA), Respiratory Disorder Additional Past Medical History / Comment(s): Hx Hammond's esophagus, hx colon polyps, prediabetes, varicose veins. INTERSTITIAL PULMONARY DISEASE History of Any Multi-Drug Resistant Organisms: None Reported Past Surgical History: Heart Catheterization, Heart Catheterization With Stent, Hernia Repair Additional Past Surgical History / Comment(s): Chest wound repair-1966, bilateral cataracts removed, 3 cardiac stents,mark inguinal hernia repairs, COLONOSCOPY/EGD, Past Anesthesia/Blood Transfusion Reactions: Motion Sickness, Postoperative Nausea & Vomiting (PONV) Date of Last Stent Placement:: 2018 Past Psychological History: No Psychological Hx Reported Smoking Status: Former smoker Past Alcohol Use History: Daily Additional Past Alcohol Use History / Comment(s): STARTED SMOKING AT AGE 12, QUIT SMOKING IN THE S, SMOKED 3PPD. States has one alchoholic drink per day. Past Drug Use History: None Reported - Past Family History Sister(s) Family Medical History: Cancer Father Family Medical History: Cancer Brother(s) Family Medical History: Cancer Additional Family Medical History / Comment(s): 2 brothers had cancer. Medications and Allergies Home Medications Medication Instructions Recorded Confirmed Type Metoprolol Tartrate [Lopressor] 25 mg PO BID 06/20/14 03/14/23 History Montelukast [Singulair] 10 mg PO HS 06/20/14 03/14/23 History Omeprazole [PriLOSEC] 20 mg PO AC-BRKFST 06/20/14 03/14/23 History lisinopriL [Zestril] 10 mg PO HS 06/20/14 03/14/23 History Rosuvastatin Calcium [Crestor] 40 mg PO DAILY 11/16/18 03/14/23 History Albuterol Inhaler [Ventolin Hfa 2 puff INHALATION RT-Q4H PRN 07/16/21 03/14/23 History Inhaler] Apixaban [Eliquis] 5 mg PO BID 03/14/23 03/14/23 History Aspirin EC [Ecotrin Low Dose] 81 mg PO HS 03/14/23 03/14/23 History Carboxymethylcellulose Sodium 1 drop BOTH EYES BID PRN 03/14/23 03/14/23 History Cholecalciferol [Vitamin D3 (10 10 mcg PO DAILY 03/14/23 03/14/23 History Mcg = 400 Iu)] Allergies Allergy/AdvReac Type Severity Reaction Status Date / Time Penicillins Allergy Rash/Hives Verified 03/14/23 22:25 shellfish derived [Shellfish] Allergy Anaphylaxis Verified 03/14/23 22:25 vitamin B Allergy Rash/Hives Uncoded 03/14/23 22:25 Surgical - Exam Vital Signs Temp Pulse Resp BP Pulse Ox 98.1 F 110 H 19 128/77 97 03/14/23 15:15 03/14/23 15:15 03/14/23 15:15 03/14/23 15:15 03/14/23 15:15 Results - Labs 03/15/23 14:21 03/15/23 14:21 Abnormal Lab Results - Last 24 Hours (Table) 03/14/23 03/14/23 03/14/23 Range/Units 15:55 15:55 20:21 WBC 17.3 H (3.8-10.6) k/uL Neutrophils # 14.0 H (1.3-7.7) k/uL Monocytes # 1.6 H (0-1.0) k/uL PT 12.1 H (9.0-12.0) sec INR 1.2 H (<1.2) Sodium 133 L (137-145) mmol/L BUN 21 H (9-20) mg/dL Glucose 114 H (74-99) mg/dL Total Bilirubin 1.6 H (0.2-1.3) mg/dL Diabetes panel 03/14/23 Range/Units 15:55 Sodium 133 L (137-145) mmol/L Potassium 4.7 (3.5-5.1) mmol/L Chloride 99 (98-107) mmol/L Carbon Dioxide 25 (22-30) mmol/L BUN 21 H (9-20) mg/dL Creatinine 0.74 (0.66-1.25) mg/dL Glucose 114 H (74-99) mg/dL Calcium 8.7 (8.4-10.2) mg/dL AST 46 (17-59) U/L ALT 33 (4-49) U/L Alkaline Phosphatase 91 (38-126) U/L Total Protein 7.7 (6.3-8.2) g/dL Albumin 3.9 (3.5-5.0) g/dL Calcium panel 03/14/23 Range/Units 15:55 Calcium 8.7 (8.4-10.2) mg/dL Albumin 3.9 (3.5-5.0) g/dL Pituitary panel 03/14/23 Range/Units 15:55 Sodium 133 L (137-145) mmol/L Potassium 4.7 (3.5-5.1) mmol/L Chloride 99 (98-107) mmol/L Carbon Dioxide 25 (22-30) mmol/L BUN 21 H (9-20) mg/dL Creatinine 0.74 (0.66-1.25) mg/dL Glucose 114 H (74-99) mg/dL Calcium 8.7 (8.4-10.2) mg/dL Adrenal panel 03/14/23 Range/Units 15:55 Sodium 133 L (137-145) mmol/L Potassium 4.7 (3.5-5.1) mmol/L Chloride 99 (98-107) mmol/L Carbon Dioxide 25 (22-30) mmol/L BUN 21 H (9-20) mg/dL Creatinine 0.74 (0.66-1.25) mg/dL Glucose 114 H (74-99) mg/dL Calcium 8.7 (8.4-10.2) mg/dL Total Bilirubin 1.6 H (0.2-1.3) mg/dL AST 46 (17-59) U/L ALT 33 (4-49) U/L Alkaline Phosphatase 91 (38-126) U/L Total Protein 7.7 (6.3-8.2) g/dL Albumin 3.9 (3.5-5.0) g/dL
--- NOTE | 2023-03-15 12:36 | P.CONS ---
History of Present Illness - Reason for Consult Consult date: 03/15/23 - History of Present Illness Patient is a 72-year-old male with history of recently diagnosed atrial fibri llation, CAD status post stents, Hammond's esophagus, hypertension, asthma, dyslipidemia presenting with abdominal pain. Abdominal pain started about 1 week ago, limited to right upper quadrant. Associated with nausea, often radiating to the chest. Initially it was intermittent, now more persistent. Has not noticed any constipation or diarrhea, or urinary complaints. He denies any fevers, chills. He denies any chest pain, shortness of breath, palpitations, lightheadedness. Occasionally smokes cigars, drinks 1 shot of alcohol every day, denies any illicit drug use. In the ED, temperature was elevated to 102.2, tachycardic to 110, blood pressure 128/77, saturating 97% on room air. WBC 17.3, sodium 133, BUN 21, creatinine 0.74, glucose 114, lactate 1.5, total bilirubin 1.6. CT abdomen and pelvis showed acute cholecystitis, colonic diverticulosis, cardiomegaly with pulmonary vascular congestion. Abdominal ultrasound showed CBD within normal limits, findings consistent with acute cholecystitis. EKG independently interpreted, shows atrial fibrillation with significant PVCs. Pertinent positives and negatives as discussed in HPI, a complete review of systems was performed and all other systems are negative. Patient seen and examined at bedside. Vital signs reviewed General: nontoxic, no distress, appears at stated age Derm: warm, dry Head: atraumatic, normocephalic, symmetric Eyes: EOMI, no lid lag, anicteric sclera, pupils equal round reactive to light ENT: Nose and ears atraumatic Neck: No thyromegaly, supple Mouth: no lip lesion, mucus membranes moist Cardiovascular: S1S2 reg, no murmur, no edema Lungs: clear to auscultation bilateral, no rhonchi, no rales, no wheeze, no accessory muscle use Abdominal: soft, tender to palpation in right upper quadrant, no guarding, no appreciable organomegaly Ext: no gross muscle atrophy, muscle strength muscle strength 5 out of 5 in all 4 extremities, no contractures Neuro: CN II-XII grossly intact Psych: Alert, oriented, appropriate affect Assessment/Plan: Active: Sepsis secondary to acute cholecystitis Atrial fibrillation on Eliquis Prerenal azotemia -Started on ceftriaxone, and Flagyl IV -Continue normal saline at 130 mL an hour -Hold lisinopril in the setting of surgery tomorrow as well as sepsis -Continue metoprolol -Started on telemetry -Hold Eliquis and aspirin -Rest of the home medications reconciled Chronic: CAD status post stents Hypertension Asthma Dyslipidemia Thank you for allowing us to participate in the care of this pleasant patient. Do not hesitate to contact us with questions. Someone can be reached from the [facility] hospitalist group all hours of the day at [phone] or via [employer]. Past Medical History Past Medical History: Atrial Fibrillation, Asthma, Chest Pain / Angina, GERD/Reflux, Hyperlipidemia, Hypertension, Osteoarthritis (OA), Respiratory Disorder Additional Past Medical History / Comment(s): Hx Hammond's esophagus, hx colon polyps, prediabetes, varicose veins. INTERSTITIAL PULMONARY DISEASE History of Any Multi-Drug Resistant Organisms: None Reported Past Surgical History: Heart Catheterization, Heart Catheterization With Stent, Hernia Repair Additional Past Surgical History / Comment(s): Chest wound repair-1966, bilateral cataracts removed, 3 cardiac stents,mark inguinal hernia repairs, COLONOSCOPY/EGD, Past Anesthesia/Blood Transfusion Reactions: Motion Sickness, Postoperative Nausea & Vomiting (PONV) Date of Last Stent Placement:: 2018 Past Psychological History: No Psychological Hx Reported Smoking Status: Former smoker Past Alcohol Use History: Daily Additional Past Alcohol Use History / Comment(s): STARTED SMOKING AT AGE 12, QUIT SMOKING IN THE , SMOKED 3PPD. States has one alchoholic drink per day. Past Drug Use History: None Reported - Past Family History Sister(s) Family Medical History: Cancer Father Family Medical History: Cancer Brother(s) Family Medical History: Cancer Additional Family Medical History / Comment(s): 2 brothers had cancer. Medications and Allergies Home Medications Medication Instructions Recorded Confirmed Type Metoprolol Tartrate [Lopressor] 25 mg PO BID 06/20/14 03/14/23 History Montelukast [Singulair] 10 mg PO HS 06/20/14 03/14/23 History Omeprazole [PriLOSEC] 20 mg PO AC-BRKFST 06/20/14 03/14/23 History lisinopriL [Zestril] 10 mg PO HS 06/20/14 03/14/23 History Rosuvastatin Calcium [Crestor] 40 mg PO DAILY 11/16/18 03/14/23 History Albuterol Inhaler [Ventolin Hfa 2 puff INHALATION RT-Q4H PRN 07/16/21 03/14/23 History Inhaler] Apixaban [Eliquis] 5 mg PO BID 03/14/23 03/14/23 History Aspirin EC [Ecotrin Low Dose] 81 mg PO HS 03/14/23 03/14/23 History Carboxymethylcellulose Sodium 1 drop BOTH EYES BID PRN 03/14/23 03/14/23 History Cholecalciferol [Vitamin D3 (10 10 mcg PO DAILY 03/14/23 03/14/23 History Mcg = 400 Iu)] Allergies Allergy/AdvReac Type Severity Reaction Status Date / Time Penicillins Allergy Rash/Hives Verified 03/14/23 22:25 shellfish derived [Shellfish] Allergy Anaphylaxis Verified 03/14/23 22:25 vitamin B Allergy Rash/Hives Uncoded 03/14/23 22:25 Physical Exam Vitals: Vital Signs Temp Pulse Pulse Resp BP BP Pulse Ox 03/15/23 09:13 73 18 03/15/23 07:22 98.5 F 73 18 127/73 94 L 03/15/23 02:18 97.5 F L 80 18 118/72 99 03/14/23 21:40 98.6 F 81 18 130/79 96 03/14/23 21:07 99 F 95 14 138/83 95 03/14/23 19:00 102.2 F H 94 16 134/83 96 03/14/23 18:16 99.8 F H 82 18 156/96 96 03/14/23 16:51 100.6 F H 03/14/23 15:15 98.1 F 110 H 19 128/77 97 Intake and Output 03/14/23 03/15/23 03/15/23 22:59 06:59 14:59 Other: # Voids 2 # Bowel Movements 1 Weight 107.955 kg 107.955 kg Results CBC & Chem 7: 03/14/23 15:55 03/14/23 15:55 Labs: Abnormal Lab Results - Last 24 Hours (Table) 03/14/23 03/14/23 03/14/23 Range/Units 15:55 15:55 20:21 WBC 17.3 H (3.8-10.6) k/uL Neutrophils # 14.0 H (1.3-7.7) k/uL Monocytes # 1.6 H (0-1.0) k/uL PT 12.1 H (9.0-12.0) sec INR 1.2 H (<1.2) Sodium 133 L (137-145) mmol/L BUN 21 H (9-20) mg/dL Glucose 114 H (74-99) mg/dL Total Bilirubin 1.6 H (0.2-1.3) mg/dL
[2023-03-15] MEDS ORDERED: METOPROLOL TARTRATE 25 MG TAB PO STA (13:24)
[2023-03-15] MEDS ORDERED: ACETAMINOPHEN IV (For NPO) 1,000 MG in EMPTY BAG 1 BAG IVPB ONE (14:13)
[2023-03-15] MEDS ORDERED: SODIUM CHLORIDE 0.9% 1,000 ML IV ONE (14:14)
[2023-03-15] MEDS ORDERED: METOPROLOL TARTRATE 5 MG/5 ML VIAL IVP ONE (14:21)
[2023-03-15] MEDS ORDERED: METOPROLOL TARTRATE 5 MG/5 ML VIAL IVP STA (14:21)
[2023-03-15 14:43] LABS: Basophils # (A) 0.1 k/uL (0-0.2); Basophils % (A) 1 %; Eosinophils % (A) 0 %; HGB 16.5 gm/dL (13.0-17.5); Lymphocytes # (A) 1.6 k/uL (1.0-4.8); Lymphocytes % (A) 12 %; MCH 33.4 pg (25.0-35.0); MCHC 33.7 g/dL (31.0-37.0); MCV 98.8 fL (80.0-100.0); Mean Platelet Volume 8.6; Monocytes # (A) 0.3 k/uL (0-1.0); Monocytes % (A) 2 %; Neutrophils # (A) 11.6 k/uL (1.3-7.7); Neutrophils % (A) 84 %; Platelet Count 143 k/uL (150-450); RBC 4.95 m/uL (4.30-5.90); RDW 12.9 % (11.5-15.5); WBC 13.7 k/uL (3.8-10.6)
[2023-03-15 14:56] LABS: African American GFR (CKD) >90 (>60 ml/min/1.73 sqM); Anion Gap 15 mmol/L; Blood Urea Nitrogen 13 mg/dL (9-20); Calcium 8.2 mg/dL (8.4-10.2); Carbon Dioxide 18 mmol/L (22-30); Chloride 102 mmol/L (98-107); Glucose 135 mg/dL (74-99); Non-African American GFR(CKD) >90 (>60 ml/min/1.73 sqM); Potassium 4.8 mmol/L (3.5-5.1); Sodium 135 mmol/L (137-145)
--- NOTE | 2023-03-15 15:06 | XR ---
EXAMINATION TYPE: XR chest 1V portable DATE OF EXAM: 03/15/2023 COMPARISON: 11/16/2018 INDICATION: Short of breath TECHNIQUE: Single frontal view of the chest is obtained. FINDINGS: The heart size is enlarged. The pulmonary vasculature is normal. No focal consolidations are evident. IMPRESSION: 1. Moderate cardiomegaly.
[2023-03-15 15:09] LABS: VBG PH 7.34 (7.31-7.41)
[2023-03-15] MEDS: SODIUM CHLORIDE 0.9% 1,000 ML IV SCH ×2 (15:41→19:47)
[2023-03-15] MEDS: DILTIAZEM 125 MG in SODIUM CHLORIDE 0.9% 100 ML IV SCH ×2 (15:41→22:11)
[2023-03-15] MEDS: metroNIDAZOLE-NS PMX 500 MG in SALINE 1 100ML.BAG IVPB SCH (15:41)
[2023-03-15] MEDS: METOPROLOL TARTRATE 25 MG TAB PO SCH (19:47)
[2023-03-15] MEDS: MONTELUKAST 10 MG TAB PO SCH (19:47)
[2023-03-15] MEDS ORDERED: lisinopriL 10 MG TAB PO SCH (21:00)
[2023-03-16] MEDS: metroNIDAZOLE-NS PMX 500 MG in SALINE 1 100ML.BAG IVPB SCH ×4 (00:14→23:22)
[2023-03-16] MEDS: SODIUM CHLORIDE 0.9% 1,000 ML IV SCH (03:04)
--- NOTE | 2023-03-16 03:53 | P.CNPUL ---
History of Present Illness Consult date: 03/16/23 Requesting physician: Rand Marrero Reason for consult: dyspnea Chief complaint: Abdominal pain History of present illness: I am seeing this patient in consultation today 03/16/2023 for shortness of breath after presenting with acute cholecystitis back on March 14. Patient is a 72-year-old white male with past medical history is significant for asthma, interstitial lung disease, atrial fibrillation anticoagulated on Eliquis, coronary artery disease with history of stents to the LAD, hyperlipidemia, hypertension, GERD. He does normally follows with Dr. Brown in the office for his mild persistent asthma and interstitial lung disease. Patient came to the emergency room on March 14 complaining of right upper quadrant abdominal pain. He states this has been intermittent for the past year, but worsened on Wednesday. It is exacerbated by greasy food intake. There has also been some associated bilious vomiting. No bowel movement reported since Wednesday. He was febrile on arrival. Both abdominal CT and ultrasound both indicated suspected cholecystitis. Patient was started on a combination of Rocephin and Flagyl. There are plans for definitive cholecystectomy tomorrow. Patient was also found to be in atrial fibrillation with rapid ventricular rate on arrival, and was started on Cardizem infusion. Currently, the patient is bradycardic, and I recommend pausing the patient's Cardizem. Patient is currently sitting up in bed, on 4 L/m nasal cannula, in no acute distress. Chest x-ray from earlier yesterday showed moderate cardiomegaly with prominent interstitial lung markings felt to be chronic. No focal consolidation or evidence of pneumonia. Most recent CBC from yesterday shows a improved WBC count down to 13.7, hemoglobin 16.5, hematocrit 49, platelets 143. BMP from yesterday shows a sodium 135, potassium 4.8, chloride 102, serum bicarb 18, BUN 13, creatinine 0.74, glucose 135. Currently receiving normal saline infusing at 130 ML's per hour. Lactic acid level was not elevated. Patient is currently being monitored on the cardiac stepdown unit. Review of Systems REVIEW OF SYSTEMS: CONSTITUTIONAL: Denies any recent significant weight loss or weight gain. EYES: Denies change in vision. EARS, NOSE, MOUTH, THROAT: Denies headaches, denies sore throat. CARDIOVASCULAR: Denies chest pain, palpitations, syncopal episodes, lower extremity swelling, orthopnea. RESPIRATORY: Denies cough, congestion or hemoptysis. Admits shortness of breath GASTROINTESTINAL: See HPI GENITOURINARY: Denies hematuria, denies infections. MUSKULOSKELETAL: Denies pain, denies swelling. INTEGUMENTARY: Denies rash, denies eczema. NEUROLOGICAL: Denies recent memory loss, no recent seizure activity. PSYCHIATRIC: Denies anxiety, denies depression. HEMATOLOGIC/LYMPHATIC: Denies anemia, denies enlarged lymph node Past Medical History Past Medical History: Atrial Fibrillation, Asthma, Chest Pain / Angina, GERD/Reflux, Hyperlipidemia, Hypertension, Osteoarthritis (OA), Respiratory Disorder Additional Past Medical History / Comment(s): Hx Hammond's esophagus, hx colon polyps, prediabetes, varicose veins. INTERSTITIAL PULMONARY DISEASE History of Any Multi-Drug Resistant Organisms: None Reported Past Surgical History: Heart Catheterization, Heart Catheterization With Stent, Hernia Repair Additional Past Surgical History / Comment(s): Chest wound repair-1966, bilateral cataracts removed, 3 cardiac stents,mark inguinal hernia repairs, COLONOSCOPY/EGD, Past Anesthesia/Blood Transfusion Reactions: Motion Sickness, Postoperative Nausea & Vomiting (PONV) Date of Last Stent Placement:: 2018 Past Psychological History: No Psychological Hx Reported Smoking Status: Former smoker Past Alcohol Use History: Daily Additional Past Alcohol Use History / Comment(s): STARTED SMOKING AT AGE 12, QUIT SMOKING IN THE , SMOKED 3PPD. States has one alchoholic drink per day. Past Drug Use History: None Reported - Past Family History Sister(s) Family Medical History: Cancer Father Family Medical History: Cancer Brother(s) Family Medical History: Cancer Additional Family Medical History / Comment(s): 2 brothers had cancer. Medications and Allergies Home Medications Medication Instructions Recorded Confirmed Type Metoprolol Tartrate [Lopressor] 25 mg PO BID 06/20/14 03/14/23 History Montelukast [Singulair] 10 mg PO HS 06/20/14 03/14/23 History Omeprazole [PriLOSEC] 20 mg PO AC-BRKFST 06/20/14 03/14/23 History lisinopriL [Zestril] 10 mg PO HS 06/20/14 03/14/23 History Rosuvastatin Calcium [Crestor] 40 mg PO DAILY 11/16/18 03/14/23 History Albuterol Inhaler [Ventolin Hfa 2 puff INHALATION RT-Q4H PRN 07/16/21 03/14/23 History Inhaler] Apixaban [Eliquis] 5 mg PO BID 03/14/23 03/14/23 History Aspirin EC [Ecotrin Low Dose] 81 mg PO HS 03/14/23 03/14/23 History Carboxymethylcellulose Sodium 1 drop BOTH EYES BID PRN 03/14/23 03/14/23 History Cholecalciferol [Vitamin D3 (10 10 mcg PO DAILY 03/14/23 03/14/23 History Mcg = 400 Iu)] Allergies Allergy/AdvReac Type Severity Reaction Status Date / Time Penicillins Allergy Rash/Hives Verified 03/14/23 22:25 shellfish derived [Shellfish] Allergy Anaphylaxis Verified 03/14/23 22:25 vitamin B Allergy Rash/Hives Uncoded 03/14/23 22:25 Physical Exam Vitals: Vital Signs Temp Pulse Pulse Resp BP Pulse Ox 03/16/23 00:00 97.9 F 47 L 16 90/67 96 03/15/23 23:42 97.9 F 48 L 18 90/67 96 03/15/23 20:37 103 H 03/15/23 20:27 108 H 03/15/23 19:52 97.4 F L 114 H 18 117/75 99 03/15/23 16:17 98.7 F 104 H 16 128/65 97 03/15/23 15:21 99.2 F 105 H 24 132/81 99 03/15/23 09:13 73 18 03/15/23 07:22 98.5 F 73 18 127/73 94 L 03/15/23 02:18 97.5 F L 80 18 118/72 99 Intake and Output 03/15/23 03/15/23 03/16/23 14:59 22:59 06:59 Intake Total 1565 24.417 Output Total 200 Balance 1365 24.417 Intake: Intake, IV Titration 1565 24.417 Amount Diltiazem 125 mg In 65 24.417 Sodium Chloride 0.9% 100 ml @ 10 MG/HR 10 mls/hr IV .[id number] [facility] Rx#: [id number] Sodium Chloride 0.9% 1, 400 000 ml @ 130 mls/hr IV . Q7H42M [facility] Rx#:[id number] Sodium Chloride 0.9% 1, 1000 000 ml @ 999 mls/hr IV . Q1H1M [facility] Rx#:[id number] metroNIDAZOLE-NS PMX 500 100 mg In Saline 1 100ml.bag @ 100 mls/hr IVPB Q8HR [facility] Rx#:[id number] Output: Urine 200 Other: Voiding Method Urinal # Bowel Movements 1 GENERAL EXAM: Alert, 72-year-old white male appearing stated age, comfortable in no apparent distress. HEAD: Normocephalic and atraumatic EYES: Normal reaction of pupils, equal size. NOSE: Clear with pink turbinates. THROAT: No erythema or exudates. NECK: No masses, no JVD. CHEST: No chest wall deformity. LUNGS: Equal air entry with mild expiratory wheezes heard throughout and bibasilar Velcro crackles. On 4 L/m nasal cannula. No conversational dyspnea or accessory muscle use.. CVS: S1 and S2 normal with no audible murmur, irregular rhythm. No extra heart sounds. Heart rate is bradycardic around 40 bpm ABDOMEN: No hepatosplenomegaly, active bowel sounds, positive Mathur sign SPINE: No scoliosis or deformity SKIN: No rashes CENTRAL NERVOUS SYSTEM: No focal deficits, tone is normal in all 4 extremities. EXTREMITIES: There is no peripheral edema, clubbing, or cyanosis. Peripheral pulses are intact. Results - Laboratory Findings CBC and BMP: 03/16/23 05:50 03/16/23 05:50 PT/INR, D-dimer PT 12.1 sec (9.0-12.0) H 03/14/23 20:21 INR 1.2 (<1.2) H 03/14/23 20:21 Abnormal lab findings: Abnormal Labs 03/14/23 03/14/23 03/14/23 15:55 15:55 20:21 WBC 17.3 H Plt Count Neutrophils # 14.0 H Monocytes # 1.6 H PT 12.1 H INR 1.2 H VBG pCO2 VBG HCO3 Sodium 133 L Carbon Dioxide BUN 21 H Glucose 114 H Calcium Total Bilirubin 1.6 H 03/15/23 03/15/23 03/15/23 04:21 14:21 14:21 WBC 13.7 H Plt Count 143 L Neutrophils # 11.6 H Monocytes # PT INR VBG pCO2 35 L VBG HCO3 18 L Sodium 135 L Carbon Dioxide 18 L BUN Glucose 135 H Calcium 8.2 L Total Bilirubin - Diagnostic Findings Chest x-ray: image reviewed Assessment and Plan Assessment: Acute cholecystitis, tentatively scheduled for cholecystectomy tomorrow. Atrial fibrillation with rapid ventricular rate, initially placed on Cardizem. Patient is still in atrial fibrillation but is now bradycardic around 40 bpm. I recommended holding the Cardizem. Acute hypoxemic respiratory failure currently on 4 L/m nasal cannula. Possibly related to above and mild asthma exacerbation. Chest x-ray shows moderate cardiomegaly with reportedly normal pulmonary vasculture. There are some chronic interstitial changes. The patient's oxygen is improved and the patient is currently on room air oxygen. Leukocytosis Interstitial lung disease Mild persistent bronchial asthma Coronary artery disease, with prior stents to the LAD 2 Essential hypertension Hyperlipidemia GERD Obesity with a BMI of 34 kg/m Plan: Patient's medications, labs, imaging reviewed Plan is for tentative cholecystectomy tomorrow Continue empiric antibiotics I recommended holding Cardizem for bradycardia Cardiology consult was placed Anticoagulation on hold for tentative procedure Start patient on combination of DuoNeb's, Symbicort inhaler, IV Solu-Medrol Check NT proBNP We will continue to follow I have personally seen and examined the patient, performed the documentation and the assessment and plan as written. Number of minutes spent on the visit:20 This is a joint evaluation that was done along with the nurse practitioner. The patient is known to have chronic interstitial lung disease and bronchial asthma. The patient is currently being treated for an acute cholecystitis and the patient is planned to undergo laparoscopic and possible open cholecystectomy today. He is on room air oxygen. He was provided incentive spirometer. Denies having any major surgical difficulties for now. Awaiting a cardiac clearance. Pulmonary clearance will be given and the patient may be taken to the ICU if needed post cholecystectomy. Continue antibiotics. Currently is off Cardizem drip. I personally do not see the need for systemic steroids and I'm going to discontinue the IV Solu-Medrol. The patient will be monitored closely. We'll continue to follow. This evaluation was done in more than 30 minutes. Time with Patient: Greater than 30
[2023-03-16] MEDS: PANTOPRAZOLE 40 MG TABLET PO SCH (06:24)
[2023-03-16 06:46] LABS: Basophils # (A) 0.1 k/uL (0-0.2); Basophils % (A) 0 %; Eosinophils % (A) 0 %; HCT 39.9 % (39.0-53.0); HGB 13.6 gm/dL (13.0-17.5); Lymphocytes # (A) 1.3 k/uL (1.0-4.8); Lymphocytes % (A) 8 %; MCH 32.9 pg (25.0-35.0); MCV 96.7 fL (80.0-100.0); Mean Platelet Volume 9.3; Monocytes # (A) 1.1 k/uL (0-1.0); Monocytes % (A) 6 %; Neutrophils % (A) 83 %; Platelet Count 154 k/uL (150-450); RBC 4.13 m/uL (4.30-5.90); RDW 13.2 % (11.5-15.5); WBC 16.9 k/uL (3.8-10.6)
[2023-03-16 07:06] LABS: ALT 40 U/L (4-49); AST 54 U/L (17-59); African American GFR (CKD) 84 (>60 ml/min/1.73 sqM); Alkaline Phosphatase 119 U/L (38-126); Anion Gap 15 mmol/L; Blood Urea Nitrogen 22 mg/dL (9-20); Calcium 7.9 mg/dL (8.4-10.2); Carbon Dioxide 18 mmol/L (22-30); Chloride 104 mmol/L (98-107); Glucose 155 mg/dL (74-99); Non-African American GFR(CKD) 72 (>60 ml/min/1.73 sqM); Potassium 4.2 mmol/L (3.5-5.1); Sodium 137 mmol/L (137-145); Total Bilirubin 1.2 mg/dL (0.2-1.3); Total Protein 6.4 g/dL (6.3-8.2)
[2023-03-16] MEDS: IPRATROPIUM-ALBUTEROL 3 ML NEB INHALATION SCH ×4 (07:52→20:14)
[2023-03-16] MEDS: SYMBICORT 160-4.5 MCG INHALER INHALATION SCH ×2 (07:52→20:13)
[2023-03-16] MEDS ORDERED: methylPREDNISolone SOD SUCCI 40 MG/ML 1 ML VIAL IV SCH (08:00)
[2023-03-16] MEDS: CHOLECALCIFEROL 10 MCG (400 IU) TABLET PO SCH (08:23)
[2023-03-16] MEDS: ATORVASTATIN 80 MG TAB PO SCH (08:23)
[2023-03-16] MEDS: METOPROLOL TARTRATE 25 MG TAB PO SCH ×2 (08:23→19:53)
--- NOTE | 2023-03-16 10:07 | P.CRDCN ---
History of Present Illness Consult date: 03/16/23 Consult reason: atrial fibrillation (w rvr) History of present illness: History of present illness: This is a 72-year-old male patient of Dr. Vazquez with past medical history of coronary artery disease with stenting of the LAD, carotid atherosclerosis, hypertension, dyslipidemia, COPD. Patient states that last week he was having some chest pain on Wednesday presented to [facility] was found to be in atrial fibrillation started on eliquis and Lopressor. He states that he has had ongoing problems or abdominal pain in the right upper quadrant that sometimes radiates to his chest. He presented for this reason found to be febrile, sta rted on antibiotics and treated for acute cholecystitis with plan for surgical intervention with Dr. Hopson. This was scheduled for a yesterday however patient had A. fib with RVR up to 120s ventricular rate. He was started on Cardizem drip at 10 mg per hour which has been subsequently discontinued due to bradycardia. Telemetry reveals A. fib running in the 50s and 60s. EKG atrial fibrillation 108, atrial fibrillation 122 bpm Chest x-ray: moderate cardiomegaly WBC 16.9, hemoglobin 13.6, platelet count 154. BUN 22, creatinine 1.02, potassium 4.2. Liver function tests normal. ProBNP 819 Home cardiac medications: Eliquis 5 mg twice daily, aspirin 81 mg at bedtime, lisinopril 10 mg at bedtime, Lopressor 25 mg twice daily, Crestor 40 mg daily Cardiac catheterization 2018 revealed intermediate to severe disease involving the distal LAD status post stent. Echocardiogram 11/2018 normal EF, mild MR, mild TR MPI 2020 normal EF normal study Review Of Systems: At the time of my evaluation: Constitutional: No fever, no chills. No weakness, fatigue or lethargy. EENT: No headache. No dizziness. Lungs: No shortness of breath, cough, no sputum production. No wheezing. Cardiovascular: No chest pain, no lower extremity edema. No palpitations. No paroxysmal nocturnal dyspnea. No orthopnea. No lightheadedness or dizziness. No syncopal episodes. Abd: Reports abdominal discomfort. Musculoskeletal: No myalgias. No muscle weakness, no frequent falls. Integumentary: No wounds. No rash. No unusual bruising. Neurologic: No aphasia. No facial droop. No change in mentation. Physical examination: Gen: This is a a 72-year-old male. He is resting but appears to be comfortable and in no acute distress VS: reviewed HEENT: Head is atraumatic, normocephalic. Pupils equal, round. Sclerae is anicteric. NECK: Supple. No JVD. . LUNGS: Clear to auscultation. No wheezes or rhonchi. No intercostal retractions. HEART: Regular rate and rhythm. No murmur. ABDOMEN: Soft No tenderness. EXTREMITIES: No pedal edema. No calf tenderness. NEUROLOGICAL: Patient is awake, alert and oriented x3. Assessment Acute cholecystitis Permanent atrial fibrillation with RVR, currently rate controlled Hypertension Hyperlipidemia Coronary artery disease with previous PCI of the LAD Plan Continue patient's home cardiac medications except to hold eliquis for surgical intervention Further recommendations to follow based upon clinical course Thank you kindly for this consultation. Nurse practitioner note has been reviewed, I agree with documented findings and plan of care. Patient was seen and examined. Past Medical History Past Medical History: Atrial Fibrillation, Asthma, Chest Pain / Angina, GERD/Reflux, Hyperlipidemia, Hypertension, Osteoarthritis (OA), Respiratory Disorder Additional Past Medical History / Comment(s): Hx Hammond's esophagus, hx colon polyps, prediabetes, varicose veins. INTERSTITIAL PULMONARY DISEASE History of Any Multi-Drug Resistant Organisms: None Reported Past Surgical History: Heart Catheterization, Heart Catheterization With Stent, Hernia Repair Additional Past Surgical History / Comment(s): Chest wound repair-1966, bilateral cataracts removed, 3 cardiac stents,makr inguinal hernia repairs, COLONOSCOPY/EGD, Past Anesthesia/Blood Transfusion Reactions: Motion Sickness, Postoperative Nausea & Vomiting (PONV) Date of Last Stent Placement:: 2018 Past Psychological History: No Psychological Hx Reported Smoking Status: Former smoker Past Alcohol Use History: Daily Additional Past Alcohol Use History / Comment(s): STARTED SMOKING AT AGE 12, QUIT SMOKING IN THE 1979'S, SMOKED 3PPD. States has one alchoholic drink per day. Past Drug Use History: None Reported - Past Family History Sister(s) Family Medical History: Cancer Father Family Medical History: Cancer Brother(s) Family Medical History: Cancer Additional Family Medical History / Comment(s): 2 brothers had cancer. Medications and Allergies Home Medications Medication Instructions Recorded Confirmed Type Metoprolol Tartrate [Lopressor] 25 mg PO BID 06/20/14 03/14/23 History Montelukast [Singulair] 10 mg PO HS 06/20/14 03/14/23 History Omeprazole [PriLOSEC] 20 mg PO AC-BRKFST 06/20/14 03/14/23 History lisinopriL [Zestril] 10 mg PO HS 06/20/14 03/14/23 History Rosuvastatin Calcium [Crestor] 40 mg PO DAILY 11/16/18 03/14/23 History Albuterol Inhaler [Ventolin Hfa 2 puff INHALATION RT-Q4H PRN 07/16/21 03/14/23 History Inhaler] Apixaban [Eliquis] 5 mg PO BID 03/14/23 03/14/23 History Aspirin EC [Ecotrin Low Dose] 81 mg PO HS 03/14/23 03/14/23 History Carboxymethylcellulose Sodium 1 drop BOTH EYES BID PRN 03/14/23 03/14/23 History Cholecalciferol [Vitamin D3 (10 10 mcg PO DAILY 03/14/23 03/14/23 History Mcg = 400 Iu)] Allergies Allergy/AdvReac Type Severity Reaction Status Date / Time Penicillins Allergy Rash/Hives Verified 03/14/23 22:25 shellfish derived [Shellfish] Allergy Anaphylaxis Verified 03/14/23 22:25 vitamin B Allergy Rash/Hives Uncoded 03/14/23 22:25 Physical Exam Vitals: Vital Signs Temp Pulse Pulse Resp BP Pulse Ox 03/16/23 04:00 97.7 F 54 L 18 100/66 99 03/16/23 00:00 97.9 F 47 L 16 90/67 96 03/15/23 23:42 97.9 F 48 L 18 90/67 96 03/15/23 20:37 103 H 03/15/23 20:27 108 H 03/15/23 19:52 97.4 F L 114 H 18 117/75 99 03/15/23 16:17 98.7 F 104 H 16 128/65 97 03/15/23 15:21 99.2 F 105 H 24 132/81 99 03/15/23 09:13 73 18 Intake and Output 03/15/23 03/16/23 03/16/23 22:59 06:59 14:59 Intake Total 1565 1584.417 Output Total 200 Balance 1365 1584.417 Intake: Intake, IV Titration 1565 1584.417 Amount Diltiazem 125 mg In 65 24.417 Sodium Chloride 0.9% 100 ml @ 10 MG/HR 10 mls/hr IV .[id number] [facility] Rx#: [id number] Sodium Chloride 0.9% 1, 400 1560 000 ml @ 130 mls/hr IV . Q7H42M [facility] Rx#:[id number] Sodium Chloride 0.9% 1, 1000 000 ml @ 999 mls/hr IV . Q1H1M [facility] Rx#:[id number] metroNIDAZOLE-NS PMX 500 100 mg In Saline 1 100ml.bag @ 100 mls/hr IVPB Q8HR [facility] Rx#:[id number] Output: Urine 200 Other: Voiding Method Urinal # Voids 2 Results 03/16/23 05:50 03/16/23 05:50 Cardiac Enzymes 03/16/23 Range/Units 05:50 AST 54 (17-59) U/L CBC 03/15/23 03/16/23 Range/Units 14:21 05:50 WBC 13.7 H 16.9 H (3.8-10.6) k/uL RBC 4.95 4.13 L (4.30-5.90) m/uL Hgb 16.5 13.6 (13.0-17.5) gm/dL Hct 49.0 39.9 (39.0-53.0) % Plt Count 143 L 154 (150-450) k/uL Comprehensive Metabolic Panel 03/15/23 03/16/23 Range/Units 14:21 05:50 Sodium 135 L 137 (137-145) mmol/L Potassium 4.8 4.2 (3.5-5.1) mmol/L Chloride 102 104 (98-107) mmol/L Carbon Dioxide 18 L 18 L (22-30) mmol/L BUN 13 22 H (9-20) mg/dL Creatinine 0.74 1.02 (0.66-1.25) mg/dL Glucose 135 H 155 H (74-99) mg/dL Calcium 8.2 L 7.9 L (8.4-10.2) mg/dL AST 54 (17-59) U/L ALT 40 (4-49) U/L Alkaline Phosphatase 119 (38-126) U/L Total Protein 6.4 (6.3-8.2) g/dL Albumin 3.0 L (3.5-5.0) g/dL Current Medications Generic Name Dose Route Start Last Admin Trade Name Freq PRN Reason Stop Dose Admin Albuterol Sulfate 2.5 mg 03/15/23 11:05 03/15/23 20:26 Albuterol Nebulized 2.5 Mg/3 Ml INHALATION 2.5 mg RT-Q4H PRN Administration Shortness Of Breath Albuterol/Ipratropium 3 ml 03/16/23 08:00 Ipratropium-Albuterol 3 Ml Neb INHALATION RT-QID ROXANNE Atorvastatin Calcium 80 mg 03/16/23 09:00 Atorvastatin 80 Mg Tab PO DAILY ROXANNE Budesonide/Formoterol Fumarate 2 puff 03/16/23 08:00 Symbicort 160-4.5 Mcg Inhaler INHALATION RT-BID ROXANNE Cholecalciferol 10 mcg 03/16/23 09:00 Cholecalciferol 10 Mcg (400 Iu) Tablet PO DAILY [facility] Hydromorphone HCl 1 mg 03/15/23 06:44 03/15/23 19:55 Hydromorphone 1 Mg/Ml 1 Ml Syringe IVP 1 mg Q3HR PRN Administration Pain Sodium Chloride 1,000 mls @ 130 mls/hr 03/14/23 19:45 03/16/23 03:04 Saline 0.9% IV 130 mls/hr .Q7H42M [facility] Administration Ceftriaxone Sodium 2 gm/ 50 mls @ 100 mls/hr 03/15/23 11:30 03/15/23 11:52 Sodium Chloride IVPB 100 mls/hr Q24HR [facility] Administration Protocol Metronidazole 500 mg/ IV 100 mls @ 100 mls/hr 03/15/23 16:00 03/16/23 00:14 Solution IVPB 100 mls/hr Q8HR [facility] Administration Protocol Diltiazem HCl 125 mg/ Sodium 125 mls @ 10 mls/hr 03/15/23 15:00 03/16/23 01:10 Chloride IV 0 mg/hr .[id number] [facility] 0 mls/hr Infusion 10 MG/HR Methylprednisolone Sodium Succinate 40 mg 03/16/23 08:00 Methylprednisolone Sod Succi 40 Mg/Ml 1 Ml Vial IV Q8HR [facility] Metoprolol Tartrate 25 mg 03/15/23 21:00 03/15/23 19:47 Metoprolol Tartrate 25 Mg Tab PO 25 mg BID [facility] Administration Montelukast Sodium 10 mg 03/15/23 21:00 03/15/23 19:47 Montelukast 10 Mg Tab PO 10 mg HS [facility] Administration Naloxone HCl 0.2 mg 03/14/23 19:43 Naloxone 0.4 Mg/Ml 1 Ml Vial IV Q2M PRN Opioid Reversal Pantoprazole Sodium 40 mg 03/16/23 07:30 03/16/23 06:24 Pantoprazole 40 Mg Tablet PO 40 mg AC-BRKFST [facility] Administration Intake and Output 03/15/23 03/16/23 03/16/23 22:59 06:59 14:59 Intake Total 1565 1584.417 Output Total 200 Balance 1365 1584.417 Intake: Intake, IV Titration 1565 1584.417 Amount Diltiazem 125 mg In 65 24.417 Sodium Chloride 0.9% 100 ml @ 10 MG/HR 10 mls/hr IV .[id number] [facility] Rx#: [id number] Sodium Chloride 0.9% 1, 400 1560 000 ml @ 130 mls/hr IV . Q7H42M [facility] Rx#:[id number] Sodium Chloride 0.9% 1, 1000 000 ml @ 999 mls/hr IV . Q1H1M [facility] Rx#:[id number] metroNIDAZOLE-NS PMX 500 100 mg In Saline 1 100ml.bag @ 100 mls/hr IVPB Q8HR [facility] Rx#:[id number] Output: Urine 200 Other: Voiding Method Urinal # Voids 2 03/16/23 05:50 03/16/23 05:50
[2023-03-16] MEDS ORDERED: LACTATED RINGERS 1,000 ML IV ONE ×2 (14:47→16:54)
[2023-03-16 14:50] LABS: Glucose,Whole Blood 143 mg/dL (70-110)
[2023-03-16] MEDS ORDERED: ONDANSETRON 4 MG/2 ML VIAL IVP ONE (14:53)
[2023-03-16] MEDS ORDERED: ONDANSETRON 4 MG/2 ML VIAL ONE (14:53)
[2023-03-16] MEDS ORDERED: HEPARIN SODIUM,PORCINE/PF 5,000 UNIT/0.5 ML SYRINGE SQ ONE (14:57)
[2023-03-16] MEDS ORDERED: NEOSTIGMINE 1 MG/ML 10 ML VIAL ONE (15:39)
[2023-03-16] MEDS ORDERED: MIDAZOLAM 2 MG/2 ML VIAL ONE (15:39)
[2023-03-16] MEDS ORDERED: ACETAMINOPHEN IV (For NPO) 1,000 MG/100 ML VIAL ONE (15:39)
[2023-03-16] MEDS ORDERED: HYDROmorphone (PF) 1 MG/ML ONE (15:39)
[2023-03-16] MEDS ORDERED: SUCCINYLCHOLINE CHLORIDE 200 MG/10 ML VIAL IV ONE (15:39)
[2023-03-16] MEDS ORDERED: METOPROLOL TARTRATE 5 MG/5 ML VIAL IVP ONE (15:39)
[2023-03-16] MEDS ORDERED: PROPOFOL 10 MG/ML 20 ML VIAL IV ONE (15:39)
[2023-03-16] MEDS ORDERED: fentaNYL (PF) 50 MCG/ML 2 ML AMP ONE (15:39)
[2023-03-16] MEDS ORDERED: ROCURONIUM 10 MG/ML (5 ML VIAL) IV ONE (15:39)
[2023-03-16] MEDS ORDERED: LIDOCAINE 2% INJ 20 MG/ML (2 ML VIAL) ONE (15:39)
[2023-03-16] MEDS ORDERED: GLYCOPYRROLATE 0.2 MG/ML 2 ML VIAL ONE (15:39)
[2023-03-16] MEDS ORDERED: HEPARIN SODIUM,PORCINE 5,000 UNIT/ML 1 ML VIAL SQ ONE (15:40)
[2023-03-16] MEDS ORDERED: ceFAZolin 1,000 MG VIAL ONE (15:50)
[2023-03-16] MEDS ORDERED: SODIUM CHLORIDE 0.9% 100 ML BAG ONE (15:50)
[2023-03-16] MEDS ORDERED: SODIUM CHLORIDE 0.9% 50 ML with ceFAZolin 2,000 MG IV ONE ×2 (15:50)
[2023-03-16] MEDS ORDERED: BUPIVACAINE (PF) 0.25% 30 ML VIAL SQ ONE ×2 (16:12)
--- NOTE | 2023-03-16 17:19 | P.PN ---
Subjective Progress Note Date: 03/16/23 (delayed charting seen at 10 am) Patient is a 72-year-old male with recently diagnosed A. fib, coronary artery disease status post stenting, Hammond's esophagus, hypertension, dyslipidemia, and multiple other comorbidities conditions were initially presented with abdominal pain. Patient was found to have cholecystitis with sepsis. He was started on ceftriaxone IV Flagyl. We're consulted for medical management. Patient then went into A. fib with rapid ventricular response initially requiring a Cardizem drip which was then discontinued and his home metoprolol was restarted. Pulmonary and cardiology are also following. Patient seen and examined at bedside. He denies any abdominal pain will just sitting there. He denies any significant shortness of breath or chest discomfor t. He denies any nausea or vomiting. Vital signs reviewed General: nontoxic, no distress, appears at stated age Cardiovascular: S1S2 reg, no murmur, positive posterior tibial pulse bilateral, Lungs: Decreased breath sounds bilateral, no rhonchi, no rales , no accessory muscle use Abdominal: soft, +tender to palpation, no guarding, no appreciable organomegaly Ext: no gross muscle atrophy, no edema b/l lower extremities, no contractures Neuro: CN II-XI grossly intact, no focal neuro deficits Psych: Alert, oriented, appropriate affect Assessment/plan: Acute cholecystitis with sepsis -Plan is for laparoscopic cholecystectomy today -Continue with Rocephin 2 g every 24 hours, Flagyl 500 mg every 8 hours day #2 -Continue with normal saline at 130 mL/h Atrial fibrillation with rapid ventricular response -Discontinue IV Cardizem -Lopressor 25 mg by mouth twice daily -Follow telemetry -Anticoagulation currently on hold with plans for surgery today -Cardiology don't reviewed: Continue current medications. Mild acute exacerbation of asthma Acute hypoxic respiratory failure Interstitial lung disease Mild persistent bronchial asthma -Pulmonary note reviewed: Started on DuoNeb, Symbicort, and IV Solu-Medrol and Solu-Medrol discontinue -Continue with DuoNeb 4 times daily scheduled and every 4 as needed Symbicort 160/4.52 puffs twice daily azotemia -Recurrent -Continue with IV fluids Chronic/resolved Hypothyroidism Hyponatremia Imaging: None new for Review Data Review: T-max last 24 hours 98. Vitals reviewed pulse 60, respirations 16, blood pres sure 105/61, O2 sat 98% on room air Labs reviewed and white blood cell count 16.9, carbon dioxide 18, BUN 22, creatinine 1.0 to Thank you for allowing us to participate in the care of this pleasant patient. Do not hesitate to contact us with questions. Someone can be reached from the [facility] hospitalist group all hours of the day at [phone] or via [employer] serve. This dictation was prepared using Meeps voice recognition software. Though every attempt is made to correct errors during dictation some may still exist. Objective - Vital Signs Vital signs: Vital Signs Temp 97 F L 03/16/23 14:37 Pulse 87 03/16/23 14:37 Resp 16 03/16/23 14:37 BP 149/67 03/16/23 14:37 Pulse Ox 97 03/16/23 14:37 FiO2 Intake & Output 03/15/23 03/16/23 03/16/23 18:59 06:59 18:59 Intake Total 1500 8812.015 8898 Output Total 200 Balance 1300 7188.417 4646 Intake: IV 1150 Intake, IV Titration 1500 1649.417 Amount Diltiazem 125 mg In 89.417 Sodium Chloride 0.9% 100 ml @ 10 MG/HR 10 mls/hr IV .[id number] ROXANNE Rx#: [id number] Sodium Chloride 0.9% 1, 400 1560 000 ml @ 130 mls/hr IV . [id number] ROXANNE Rx#:[id number] Sodium Chloride 0.9% 1, 1000 000 ml @ 999 mls/hr IV . Q1H1M ONE Rx#:[id number] metroNIDAZOLE-NS PMX 500 100 mg In Saline 1 100ml.bag @ 100 mls/hr IVPB Q8HR ROXANNE Rx#:[id number] Output: Urine 200 Other: Voiding Method Urinal Urinal Urinal # Voids 2 # Bowel Movements 1 - Labs CBC & Chem 7: 03/16/23 05:50 03/16/23 05:50 Labs: Abnormal Lab Results - Last 24 Hours (Table) 03/16/23 03/16/23 03/16/23 Range/Units 05:50 05:50 14:49 WBC 16.9 H (3.8-10.6) k/uL RBC 4.13 L (4.30-5.90) m/uL Neutrophils # 14.0 H (1.3-7.7) k/uL Monocytes # 1.1 H (0-1.0) k/uL Carbon Dioxide 18 L (22-30) mmol/L BUN 22 H (9-20) mg/dL Glucose 155 H (74-99) mg/dL POC Glucose (mg/dL) 143 H (70-110) mg/dL Calcium 7.9 L (8.4-10.2) mg/dL Albumin 3.0 L (3.5-5.0) g/dL
--- NOTE | 2023-03-16 17:39 | P.OP ---
Date of Procedure: 03/16/23 Procedure(s) Performed: PREOPERATIVE DIAGNOSIS: Acute cholecystitis POSTOPERATIVE DIAGNOSIS: Acute gangrenous cholecystitis PROCEDURE: Laparoscopic cholecystectomy SURGEON: Emiliana EBL: 50 mL ANESTHESIA: Gen. COMPLICATIONS: None OPERATIVE PROCEDURE: The patient was brought and placed on the operating room table in the supine position. The patient was placed under general anesthesia at that time. The abdomen was prepped and draped in the usual sterile fashion. A small vertical infraumbilical incision was made. The fascia was grasped with the Karen forceps. The fascia was retracted anteriorly. The Veress needle was advanced into the peritoneal cavity. The saline drop test was normal. Insufflation took place up to 15 mmHg. A 5 mm optical trocar was advanced and the peritoneal cavity. 2 additional 5 mm trochars were placed in the right upper quadrant under direct visualization. A 12 mm trocar was advanced into the epigastric incision site. There were adhesions between the omentum and the gallbladder that were lysed using blunt dissection. The gallbladder had gangrenous changes and was quite inflamed. The gallbladder was retracted superiorly and laterally. The peritoneum overlying the infundibulum was bluntly dissected. The patient had significant thickening of the surrounding peritoneal lining and given the degree of inflammation some of these areas were clipped. The patient's cystic duct was visualized. The junction between the cystic duct common and hepatic duct was identified. The critical view of safety was achieved after blunt dissection. The cystic duct was then divided after placement of a 2-0 Ethibond stitch on the patient's side as well as a 12 mm clip. This was tied down using a timeout device. The cystic artery was identified and clipped as well. A small vessel was seen along the gallbladder fossa and clipped as well. The gallbladder was then removed from the liver bed using electrocautery. The gallbladder was then removed from the epigastric trocar site with an Endo Catch bag. The gallbladder fossa was irrigated with saline. There was no evidence of any bleeding or biliary drainage seen. A drain was placed in the gallbladder fossa exiting from the lateral 5 mm trocar site. This was sutured in place using a 3-0 silk stitch. The fascia at the 12 millimeter site was closed using a Lemuelon 0 Vicryl stitch. The trochars were then removed. The skin at all 3 sites was closed using a 4-0 Monocryl stitch. Skin glue was utilized on the incision sites. At the end of this procedure the sponge and needle counts were correct. DISPOSITION: Stable to the recovery room
[2023-03-16 17:53] LABS: Glucose,Whole Blood 150 mg/dL (70-110)
[2023-03-16] MEDS: HYDROmorphone 1 MG/ML 1 ML SYRINGE IVP PRN ×2 (18:50→23:22)
[2023-03-16] MEDS: MONTELUKAST 10 MG TAB PO SCH (19:52)
[2023-03-17] MEDS: HYDROmorphone 1 MG/ML 1 ML SYRINGE IVP PRN ×4 (04:08→20:14)
[2023-03-17] MEDS: PANTOPRAZOLE 40 MG TABLET PO SCH (06:20)
[2023-03-17] MEDS: SODIUM CHLORIDE 0.9% 1,000 ML IV SCH ×3 (06:21→09:37)
[2023-03-17 07:47] LABS: Basophils % (A) 0 %; Eosinophils % (A) 0 %; HCT 37.8 % (39.0-53.0); HGB 12.7 gm/dL (13.0-17.5); Lymphocytes # (A) 1.2 k/uL (1.0-4.8); Lymphocytes % (A) 10 %; MCH 32.9 pg (25.0-35.0); MCHC 33.6 g/dL (31.0-37.0); MCV 97.8 fL (80.0-100.0); Mean Platelet Volume 8.7; Monocytes # (A) 0.9 k/uL (0-1.0); Monocytes % (A) 7 %; Neutrophils # (A) 9.7 k/uL (1.3-7.7); Neutrophils % (A) 79 %; Platelet Count 147 k/uL (150-450); RBC 3.86 m/uL (4.30-5.90); RDW 13.4 % (11.5-15.5); WBC 12.2 k/uL (3.8-10.6)
[2023-03-17 08:06] LABS: Potassium 4.1 mmol/L (3.5-5.1)
[2023-03-17 08:07] LABS: ALT 37 U/L (4-49); AST 44 U/L (17-59); African American GFR (CKD) >90 (>60 ml/min/1.73 sqM); Albumin 2.9 g/dL (3.5-5.0); Alkaline Phosphatase 108 U/L (38-126); Anion Gap 7 mmol/L; Blood Urea Nitrogen 20 mg/dL (9-20); Calcium 7.9 mg/dL (8.4-10.2); Carbon Dioxide 22 mmol/L (22-30); Chloride 107 mmol/L (98-107); Glucose 106 mg/dL (74-99); Non-African American GFR(CKD) >90 (>60 ml/min/1.73 sqM); Sodium 136 mmol/L (137-145); Total Bilirubin 0.7 mg/dL (0.2-1.3); Total Protein 6.1 g/dL (6.3-8.2)
[2023-03-17] MEDS: SYMBICORT 160-4.5 MCG INHALER INHALATION SCH ×2 (09:19→20:29)
[2023-03-17] MEDS: IPRATROPIUM-ALBUTEROL 3 ML NEB INHALATION SCH ×4 (09:19→20:29)
[2023-03-17] MEDS: metroNIDAZOLE-NS PMX 500 MG in SALINE 1 100ML.BAG IVPB SCH ×3 (09:38→23:18)
[2023-03-17] MEDS: CHOLECALCIFEROL 10 MCG (400 IU) TABLET PO SCH (09:41)
[2023-03-17] MEDS: ATORVASTATIN 80 MG TAB PO SCH (09:41)
[2023-03-17] MEDS: METOPROLOL TARTRATE 25 MG TAB PO SCH ×2 (09:41→20:06)
[2023-03-17] MEDS ORDERED: TAMSULOSIN 0.4 MG CAP.ER.24H PO STA (10:07)
--- NOTE | 2023-03-17 10:25 | P.PN ---
Subjective Progress Note Date: 03/17/23 History of present illness: This is a 72-year-old male patient of Dr. Vazquez with past medical history of co ronary artery disease with stenting of the LAD, carotid atherosclerosis, hypertension, dyslipidemia, COPD. Patient states that last week he was having some chest pain on Wednesday presented to [facility] was found to be in atrial fibrillation started on eliquis and Lopressor. He states that he has had ongoing problems or abdominal pain in the right upper quadrant that sometimes radiates to his chest. He presented for this reason found to be febrile, started on antibiotics and treated for acute cholecystitis with plan for surgical intervention with Dr. Hopsno. This was scheduled for a yesterday however patient had A. fib with RVR up to 120s ventricular rate. He was started on Cardizem drip at 10 mg per hour which has been subsequently discontinued due to bradycardia. Telemetry reveals A. fib running in the 50s and 60s. EKG atrial fibrillation 108, atrial fibrillation 122 bpm Chest x-ray: moderate cardiomegaly WBC 16.9, hemoglobin 13.6, platelet count 154. BUN 22, creatinine 1.02, potassium 4.2. Liver function tests normal. ProBNP 819 Home cardiac medications: Eliquis 5 mg twice daily, aspirin 81 mg at bedtime, lisinopril 10 mg at bedtime, Lopressor 25 mg twice daily, Crestor 40 mg daily Cardiac catheterization 2018 revealed intermediate to severe disease involving the distal LAD status post stent. Echocardiogram 11/2018 normal EF, mild MR, mild TR MPI 2020 normal EF normal study 03/17 Yesterday, patient underwent laparoscopic cholecystectomy with Dr. Hopson. P atient states that his abdominal pain is significantly improved. He denies having any chest pain, no shortness of breath and no palpitations. Blood pressures 128/71, heart rate in the 80s. Telemetry is atrial fibrillation. Patient has required Knight catheter placement for urinary retention. Physical examination: Gen: This is a a 72-year-old male. He is resting in bed and appears to be comfortable and in no acute distress VS: reviewed HEENT: Head is atraumatic, normocephalic. Pupils equal, round. Sclerae is anicteric. NECK: Supple. No JVD. LUNGS: Clear to auscultation. No wheezes or rhonchi. No intercostal retractions. HEART: Irregular rate and rhythm. No murmur. EXTREMITIES: No pedal edema. No calf tenderness. NEUROLOGICAL: Patient is awake, alert and oriented x3. Assessment Acute cholecystitis status post laparoscopic cholecystectomy 03/16 Permanent atrial fibrillation with RVR, currently rate controlled Hypertension Hyperlipidemia Coronary artery disease with previous PCI of the LAD Plan Continue patient's home cardiac medications and resume eliquis once cleared by general surgery Further recommendations to follow based upon clinical course Nurse practitioner note has been reviewed, I agree with documented findings and plan of care. Patient was seen and examined. Objective - Vital Signs Vital signs: Vital Signs Temp 98.2 F 03/16/23 20:00 Pulse 88 03/17/23 04:00 Resp 18 03/17/23 04:00 BP 128/71 03/17/23 04:00 Pulse Ox 100 03/17/23 04:00 FiO2 Intake & Output 03/16/23 03/17/23 03/17/23 18:59 06:59 18:59 Intake Total 1750 540 180 Output Total 50 930 1125 Balance 1700 -390 -945 Intake: IV 1750 Oral 540 180 Output: Drainage 80 Right Abdomen 80 Urine 850 1125 Straight 650 550 Estimated Blood Loss 50 Other: Voiding Method Urinal Urinal # Voids 1 - Labs CBC & Chem 7: 03/17/23 06:53 03/17/23 06:53 Labs: Abnormal Lab Results - Last 24 Hours (Table) 03/16/23 03/16/23 03/17/23 Range/Units 14:49 17:52 06:53 WBC 12.2 H (3.8-10.6) k/uL RBC 3.86 L (4.30-5.90) m/uL Hgb 12.7 L (13.0-17.5) gm/dL Hct 37.8 L (39.0-53.0) % Plt Count 147 L (150-450) k/uL Neutrophils # 9.7 H (1.3-7.7) k/uL Sodium (137-145) mmol/L Glucose (74-99) mg/dL POC Glucose (mg/dL) 143 H 150 H (70-110) mg/dL Calcium (8.4-10.2) mg/dL Total Protein (6.3-8.2) g/dL Albumin (3.5-5.0) g/dL 03/17/23 Range/Units 06:53 WBC (3.8-10.6) k/uL RBC (4.30-5.90) m/uL Hgb (13.0-17.5) gm/dL Hct (39.0-53.0) % Plt Count (150-450) k/uL Neutrophils # (1.3-7.7) k/uL Sodium 136 L (137-145) mmol/L Glucose 106 H (74-99) mg/dL POC Glucose (mg/dL) (70-110) mg/dL Calcium 7.9 L (8.4-10.2) mg/dL Total Protein 6.1 L (6.3-8.2) g/dL Albumin 2.9 L (3.5-5.0) g/dL Microbiology - Last 24 Hours (Table) 03/15/23 15:26 Blood Culture - Preliminary Blood
--- NOTE | 2023-03-17 13:07 | P.PN ---
Subjective Progress Note Date: 03/17/23 CHIEF COMPLAINT: Acute gangrenous cholecystitis HISTORY OF PRESENT ILLNESS: Patient postop day #1 status post laparoscopic cholecystectomy. Patient is lying in bed comfortably. Reports his pain controlled. He did have issues with urinary retention has Knight catheter placed. Denies any flatus. Denies any nausea or vomiting. IVAN drain with 80 ML serosanguineous output. Patient did have a low-grade temp last night of 100.4. White count has decreased 16-12.2 Hgb 12.7 PHYSICAL EXAM: VITAL SIGNS: Reviewed. GENERAL: Well-developed in no acute distress. ABDOMEN: Soft. Nondistended. Incision sites clean dry and intact NEUROLOGIC: Alert and oriented. Cranial nerves II through XII grossly intact. ASSESSMENT: 1. Acute gangrenous cholecystitis status post laparoscopic cholecystectomy PLAN: -Continue clear liquid diet. Advance diet to low-fat this evening -Continue to hold Eliquis -Continue pain management -Encouraged patient to use incentive spirometer -Encouraged patient ambulate -Continue antibiotics Physician Filling Hauler note has been reviewed by physician. Signing provider agrees with the documented findings, assessment, and plan of care. Objective - Vital Signs Vital signs: Vital Signs Temp 98.1 F 03/17/23 09:15 Pulse 88 03/17/23 13:01 Resp 18 03/17/23 09:15 BP 129/73 03/17/23 09:15 Pulse Ox 98 03/17/23 12:51 FiO2 Intake & Output 03/16/23 03/17/23 03/17/23 18:59 06:59 18:59 Intake Total 1750 540 180 Output Total 50 930 1125 Balance 1700 -390 -945 Intake: IV 1750 Oral 540 180 Output: Drainage 80 Right Abdomen 80 Urine 850 1125 Straight 650 550 Estimated Blood Loss 50 Other: Voiding Method Urinal Urinal Urinal # Voids 1 - Labs CBC & Chem 7: 03/17/23 06:53 03/17/23 06:53 Labs: Abnormal Lab Results - Last 24 Hours (Table) 03/16/23 03/16/23 03/17/23 Range/Units 14:49 17:52 06:53 WBC 12.2 H (3.8-10.6) k/uL RBC 3.86 L (4.30-5.90) m/uL Hgb 12.7 L (13.0-17.5) gm/dL Hct 37.8 L (39.0-53.0) % Plt Count 147 L (150-450) k/uL Neutrophils # 9.7 H (1.3-7.7) k/uL Sodium (137-145) mmol/L Glucose (74-99) mg/dL POC Glucose (mg/dL) 143 H 150 H (70-110) mg/dL Calcium (8.4-10.2) mg/dL Total Protein (6.3-8.2) g/dL Albumin (3.5-5.0) g/dL 03/17/23 Range/Units 06:53 WBC (3.8-10.6) k/uL RBC (4.30-5.90) m/uL Hgb (13.0-17.5) gm/dL Hct (39.0-53.0) % Plt Count (150-450) k/uL Neutrophils # (1.3-7.7) k/uL Sodium 136 L (137-145) mmol/L Glucose 106 H (74-99) mg/dL POC Glucose (mg/dL) (70-110) mg/dL Calcium 7.9 L (8.4-10.2) mg/dL Total Protein 6.1 L (6.3-8.2) g/dL Albumin 2.9 L (3.5-5.0) g/dL Microbiology - Last 24 Hours (Table) 03/15/23 15:26 Blood Culture - Preliminary Blood
--- NOTE | 2023-03-17 13:20 | P.PN ---
Subjective Progress Note Date: 03/17/23 I am seeing this patient in consultation today 03/16/2023 for shortness of breath after presenting with acute cholecystitis back on March 14. Patient is a 72-year-old white male with past medical history is significant for asthma, interstitial lung disease, atrial fibrillation anticoagulated on Eliquis, coronary artery disease with history of stents to the LAD, hyperlipidemia, hypertension, GERD. He does normally follows with Dr. Brown in the office for his mild persistent asthma and interstitial lung disease. Patient came to the emergency room on March 14 complaining of right upper quadrant abdominal pain. He states this has been intermittent for the past year, but worsened on Wednesday. It is exacerbated by greasy food intake. There has also been some associated bilious vomiting. No bowel movement reported since Wednesday. He was febrile on arrival. Both abdominal CT and ultrasound both indicated suspected cholecystitis. Patient was started on a combination of Rocephin and Flagyl. There are plans for definitive cholecystectomy tomorrow. Patient was also found to be in atrial fibrillation with rapid ventricular rate on arrival, and was started on Cardizem infusion. Currently, the patient is bradycardic, and I recommend pausing the patient's Cardizem. Patient is currently sitting up in bed, on 4 L/m nasal cannula, in no acute distress. Chest x-ray from earlier yesterday showed moderate cardiomegaly with prominent interstitial lung markings felt to be chronic. No focal consolidation or evidence of pneumonia. Most recent CBC from yesterday shows a improved WBC count down to 13.7, hemoglobin 16.5, hematocrit 49, platelets 143. BMP from yesterday shows a sodium 135, potassium 4.8, chloride 102, serum bicarb 18, BUN 13, creatinine 0.74, glucose 135. Currently receiving normal saline infusing at 130 ML's per hour. Lactic acid level was not elevated. Patient is currently being monitored on the cardiac stepdown unit. , 03/17/2023, the patient is postop day #1. The patient underwent a laparoscopic thuy for an acute gangrenous cholecystitis. The patient is doing well. The patient is on room air oxygen. The patient has no nausea. His tolerating clear liquid diet. IVAN drain is in place. Remains in atrial fibrillation. He did encounter some urinary retention and a Knight catheter was inserted. Blood work from today shows a drop in the delivery was down to 12.2 with hemoglobin 12.7 and a platelet count of 147. BUN is at 20 with a creatinine of 0.6. Sodium is at 136 and potassium levels at 4.1. LFTs are normal. Objective - Vital Signs Vital signs: Vital Signs Temp 97.9 F 03/17/23 12:20 Pulse 88 03/17/23 13:01 Resp 16 03/17/23 12:20 BP 128/77 03/17/23 12:20 Pulse Ox 98 03/17/23 12:51 FiO2 Intake & Output 03/16/23 03/17/23 03/17/23 18:59 06:59 18:59 Intake Total 1750 540 180 Output Total 50 930 1170 Balance 1700 -390 -990 Intake: IV 1750 Oral 540 180 Output: Drainage 80 45 Right Abdomen 80 45 Urine 850 1125 Straight 650 550 Estimated Blood Loss 50 Other: Voiding Method Urinal Urinal Urinal # Voids 1 - Exam GENERAL EXAM: Alert, 72-year-old white male appearing stated age, comfortable in no apparent distress. HEAD: Normocephalic and atraumatic EYES: Normal reaction of pupils, equal size. NOSE: Clear with pink turbinates. THROAT: No erythema or exudates. NECK: No masses, no JVD. CHEST: No chest wall deformity. LUNGS: Equal air entry with mild expiratory wheezes heard throughout and bibasilar Velcro crackles. ABDOMEN: No hepatosplenomegaly, active bowel sounds, the surgical sites are clean and the patient has a IVAN drain in the right upper quadrant with bloody serous drainage. SPINE: No scoliosis or deformity SKIN: No rashes CENTRAL NERVOUS SYSTEM: No focal deficits, tone is normal in all 4 extremities. EXTREMITIES: There is no peripheral edema, clubbing, or cyanosis. Peripheral pulses are intact. - Labs CBC & Chem 7: 03/18/23 07:38 03/18/23 07:38 Labs: Abnormal Lab Results - Last 24 Hours (Table) 03/16/23 03/16/23 03/17/23 Range/Units 14:49 17:52 06:53 WBC 12.2 H (3.8-10.6) k/uL RBC 3.86 L (4.30-5.90) m/uL Hgb 12.7 L (13.0-17.5) gm/dL Hct 37.8 L (39.0-53.0) % Plt Count 147 L (150-450) k/uL Neutrophils # 9.7 H (1.3-7.7) k/uL Sodium (137-145) mmol/L Glucose (74-99) mg/dL POC Glucose (mg/dL) 143 H 150 H (70-110) mg/dL Calcium (8.4-10.2) mg/dL Total Protein (6.3-8.2) g/dL Albumin (3.5-5.0) g/dL 03/17/23 Range/Units 06:53 WBC (3.8-10.6) k/uL RBC (4.30-5.90) m/uL Hgb (13.0-17.5) gm/dL Hct (39.0-53.0) % Plt Count (150-450) k/uL Neutrophils # (1.3-7.7) k/uL Sodium 136 L (137-145) mmol/L Glucose 106 H (74-99) mg/dL POC Glucose (mg/dL) (70-110) mg/dL Calcium 7.9 L (8.4-10.2) mg/dL Total Protein 6.1 L (6.3-8.2) g/dL Albumin 2.9 L (3.5-5.0) g/dL Microbiology - Last 24 Hours (Table) 03/15/23 15:26 Blood Culture - Preliminary Blood Assessment and Plan Assessment: Acute cholecystitis, post cholecystectomy and the patient is postoperative day #1. Chronic atrial fibrillation with adequate rate control with metoprolol 25 mg by mouth twice a day. No tobacco dependence for now Acute hypoxemic respiratory failure currently on 4 L/m nasal cannula. Possibly related to above and mild asthma exacerbation. Chest x-ray shows moderate cardiomegaly with reportedly normal pulmonary vasculture. There are some chronic interstitial changes. The patient's oxygen is improved and the patient is curr ently on room air oxygen. Leukocytosis, improving Interstitial lung disease, stable Mild persistent bronchial asthma, stable Coronary artery disease, with prior stents to the LAD 2 Essential hypertension Hyperlipidemia GERD Obesity with a BMI of 34 kg/m Plan: Incentive spirometer Advance diet as tolerated Patient is currently on room air oxygen Pulmonary status is stable Monitor the output from the IVAN drain Continue same antibiotic coverage included a combination of Rocephin and Flagyl Cardiology regarding the chronic active fibrillation No anticoagulants for now Ambulate the patient
--- NOTE | 2023-03-17 15:22 | CDI ---
Documentation Clarification Form Date: 03/17/2023 03:03:02 PM From: Ilene Ramos RN CCDS Phone: [phone] Admit Date: 03/14/2023 07:44:00 PM Patient Name: Andrew Velazquez Visit Number: [id number] Discharge Date: ATTENTION: The Clinical Documentation Specialists (CDI) and [facility] Coding Staff appreciate your assistance in clarifying documentation. Please respond to the clarification below the line at the bottom and electronically sign. The CDI & [facility] Coding staff will review the response and follow-up if needed. Please note: Queries are made part of the Legal Health Record. If you have any questions, please contact the author of this message via ITS. Dr. Serafin Hopson Sepsis is documented H&P, 03/15, but is not noted in subsequent documentation. Clarification is requested. History/Risk Factors: 72-year-old male presents to the ED with right lower quadrant abdominal pain. Patient hasnt had a bowel movement in five days. The patient had a fever at home and bilious vomiting. ED note, 03/14. Medical History: New diagnosis of Atrial fibrillation. Clinical Indicators: VSS, 03/14 16:51: B/P 128/77; HR 110; Temp 100.6 F Oral; SpO2 97% room air Temperature, 03/14 19:00: Temp 102.2 F Oral Labs, 03/14: Wbc 17.3; Neutrophils 14.0 CT ABD, 03/14: Findings of suggestive of acute cholecystitis with wall thickening and surrounding inflammatory changes. Procedure note post-operative diagnosis 03/16: Acute gangrenous cholecystitis. Medicine consult, 03/15: Sepsis secondary to acute cholecystitis. Treatment: 03/14 Tylenol PO x 1; 03/14 Cefepime IVPB x 1; 03/14 03/17 0.9NS 130cc/hr; 03/14 Motrin PO x 1; 03/15 Ceftriaxone IVPB Q24HR; 03/15 Lopressor PO x 1; 03/15 Acetaminophen IVPB X 1; 03/15 Lopressor IVP x 1; 03/15 03/16 Diltiazem IV; 03/15 Flagyl IVPB Q8HR. Please clarify if the Sepsis is: [ ] Sepsis confirmed, remains under treatment [ X] Sepsis is confirmed, resolved [ ] Other condition, please specify [ ] Unable to determine (Template Last Revised: October 2020) MTDD
--- NOTE | 2023-03-17 16:40 | P.PN ---
Subjective Progress Note Date: 03/17/23 (delayed charting seen at 1105) Patient is a 72-year-old male with recently diagnosed A. fib, coronary artery disease status post stenting, Hammond's esophagus, hypertension, dyslipidemia, and multiple other comorbidities conditions were initially presented with abdominal pain. Patient was found to have cholecystitis with sepsis. He was started on ceftriaxone IV Flagyl. We're consulted for medical management. Patient then went into A. fib with rapid ventricular response initially requiring a Cardizem drip which was then discontinued and his home metoprolol was restarted. Pulmonary and cardiology are also following. He underwent lap thuy on 03/16 which showed a gangrenous gallbladder. Patient seen and examined at bedside. He feels better than yesterday. He is not really having much abdominal pain. He has not yet passed gas or had a bowel movement. He denies any chest pain or shortness of breath. Vital signs reviewed General: nontoxic, no distress, appears at stated age Cardiovascular: S1S2 reg, no murmur, positive posterior tibial pulse bilateral, Lungs: Decreased breath sounds bilateral, no rhonchi, no rales , no accessory muscle use Abdominal: soft, +tender to palpation RUQ, no guarding, no appreciable organomegaly Ext: no gross muscle atrophy, no edema b/l lower extremities, no contractures Neuro: CN II-XI grossly intact, no focal neuro deficits Psych: Alert, oriented, appropriate affect Assessment/plan: Acute gangerenouse cholecystitis with sepsis s/p lap thuy 03/16/23 - Gen surgery note reviewed. Continue to hold Eliquis. Continue clear liquid diet and advance to low-fat this evening. Continue antibiotics. -Continue with Rocephin 2 g every 24 hours, Flagyl 500 mg every 8 hours day #3 -Stop IVF - monitor for recurrent fevers Atrial fibrillation with rapid ventricular response -Lopressor 25 mg by mouth twice daily -Follow telemetry -Anticoagulation currently on hold with plans for surgery today -Cardiology note reviewed-continue patient's home cardiac medications. Resume Eliquis once cleared by surgery. Mild acute exacerbation of asthma Acute hypoxic respiratory failure Interstitial lung disease Mild persistent bronchial asthma -Pulmonary note reviewed: Continue antibiotic coverage -Continue with DuoNeb 4 times daily scheduled and every 4 as needed Symbicort 160/4.52 puffs twice daily Chronic/resolved Hypothyroidism Hyponatremia azotemia, resolved Imaging: None new for Review Data Review: T-max last 24 hours 98. Vitals reviewed pulse 60, respirations 16, blood pressure 105/61, O2 sat 98% on room air Labs reviewed and white blood cell count 16.9, carbon dioxide 18, BUN 22, creatinine 1.0 to Thank you for allowing us to participate in the care of this pleasant patient. Do not hesitate to contact us with questions. Someone can be reached from the [facility] hospitalist group all hours of the day at [phone] or via [employer]. This dictation was prepared using [employer] voice recognition software. Though every attempt is made to correct errors during dictation some may still exist. Objective - Vital Signs Vital signs: Vital Signs Temp 97.9 F 03/17/23 12:20 Pulse 88 03/17/23 16:33 Resp 16 03/17/23 12:20 BP 128/77 03/17/23 12:20 Pulse Ox 98 03/17/23 12:51 FiO2 Intake & Output 03/16/23 03/17/23 03/17/23 18:59 06:59 18:59 Intake Total 1750 540 360 Output Total 50 930 1170 Balance 1700 -390 -810 Intake: IV 1750 Oral 540 360 Output: Drainage 80 45 Right Abdomen 80 45 Urine 850 1125 Straight 650 550 Estimated Blood Loss 50 Other: Voiding Method Urinal Urinal Urinal # Voids 1 - Labs CBC & Chem 7: 03/17/23 06:53 03/17/23 06:53 Labs: Abnormal Lab Results - Last 24 Hours (Table) 03/16/23 03/17/23 03/17/23 Range/Units 17:52 06:53 06:53 WBC 12.2 H (3.8-10.6) k/uL RBC 3.86 L (4.30-5.90) m/uL Hgb 12.7 L (13.0-17.5) gm/dL Hct 37.8 L (39.0-53.0) % Plt Count 147 L (150-450) k/uL Neutrophils # 9.7 H (1.3-7.7) k/uL Sodium 136 L (137-145) mmol/L Glucose 106 H (74-99) mg/dL POC Glucose (mg/dL) 150 H (70-110) mg/dL Calcium 7.9 L (8.4-10.2) mg/dL Total Protein 6.1 L (6.3-8.2) g/dL Albumin 2.9 L (3.5-5.0) g/dL Microbiology - Last 24 Hours (Table) 03/15/23 15:26 Blood Culture - Preliminary Blood
[2023-03-17] MEDS: TAMSULOSIN 0.4 MG CAP.ER.24H PO SCH (17:37)
[2023-03-17] MEDS: MONTELUKAST 10 MG TAB PO SCH (20:06)
[2023-03-18] MEDS: PANTOPRAZOLE 40 MG TABLET PO SCH (06:40)
[2023-03-18] MEDS: metroNIDAZOLE-NS PMX 500 MG in SALINE 1 100ML.BAG IVPB SCH ×2 (08:25→15:49)
[2023-03-18 08:26] LABS: HCT 37.4 % (39.0-53.0); HGB 12.5 gm/dL (13.0-17.5); MCH 32.4 pg (25.0-35.0); MCHC 33.5 g/dL (31.0-37.0); MCV 96.7 fL (80.0-100.0); Mean Platelet Volume 9.1; Platelet Count 168 k/uL (150-450); RBC 3.87 m/uL (4.30-5.90); RDW 13.4 % (11.5-15.5); WBC 10.8 k/uL (3.8-10.6)
[2023-03-18] MEDS: CHOLECALCIFEROL 10 MCG (400 IU) TABLET PO SCH (08:26)
[2023-03-18] MEDS: METOPROLOL TARTRATE 25 MG TAB PO SCH (08:26)
[2023-03-18] MEDS: ATORVASTATIN 80 MG TAB PO SCH (08:26)
[2023-03-18] MEDS: IPRATROPIUM-ALBUTEROL 3 ML NEB INHALATION SCH ×4 (08:42→22:17)
[2023-03-18] MEDS: SYMBICORT 160-4.5 MCG INHALER INHALATION SCH (08:42)
[2023-03-18 08:54] LABS: African American GFR (CKD) >90 (>60 ml/min/1.73 sqM); Anion Gap 9 mmol/L; Blood Urea Nitrogen 13 mg/dL (9-20); Carbon Dioxide 23 mmol/L (22-30); Chloride 104 mmol/L (98-107); Glucose 100 mg/dL (74-99); Non-African American GFR(CKD) >90 (>60 ml/min/1.73 sqM); Potassium 3.8 mmol/L (3.5-5.1); Sodium 136 mmol/L (137-145)
[2023-03-18] MEDS ORDERED: METOPROLOL TARTRATE 25 MG TAB PO STA (09:36)
--- NOTE | 2023-03-18 09:47 | P.PN ---
Subjective Progress Note Date: 03/18/23 History of present illness: This is a 72-year-old male patient of Dr. Vazquez with past medical history of co ronary artery disease with stenting of the LAD, carotid atherosclerosis, hypertension, dyslipidemia, COPD. Patient states that last week he was having some chest pain on Wednesday presented to [facility] was found to be in atrial fibrillation started on eliquis and Lopressor. He states that he has had ongoing problems or abdominal pain in the right upper quadrant that sometimes radiates to his chest. He presented for this reason found to be febrile, started on antibiotics and treated for acute cholecystitis with plan for surgical intervention with Dr. Hopson. This was scheduled for a yesterday however patient had A. fib with RVR up to 120s ventricular rate. He was started on Cardizem drip at 10 mg per hour which has been subsequently discontinued due to bradycardia. Telemetry reveals A. fib running in the 50s and 60s. EKG atrial fibrillation 108, atrial fibrillation 122 bpm Chest x-ray: moderate cardiomegaly WBC 16.9, hemoglobin 13.6, platelet count 154. BUN 22, creatinine 1.02, potassium 4.2. Liver function tests normal. ProBNP 819 Home cardiac medications: Eliquis 5 mg twice daily, aspirin 81 mg at bedtime, lisinopril 10 mg at bedtime, Lopressor 25 mg twice daily, Crestor 40 mg daily Cardiac catheterization 2018 revealed intermediate to severe disease involving the distal LAD status post stent. Echocardiogram 11/2018 normal EF, mild MR, mild TR MPI 2020 normal EF normal study 03/17 Yesterday, patient underwent laparoscopic cholecystectomy with Dr. Hopson. P atient states that his abdominal pain is significantly improved. He denies having any chest pain, no shortness of breath and no palpitations. Blood pressures 128/71, heart rate in the 80s. Telemetry is atrial fibrillation. Patient has required Knight catheter placement for urinary retention. 03/18 Diet has been advanced to low-fat per general surgery. Eliquis remains on hold per general surgery. His heart rate is in the 90s to low 100s, blood pressure 139/82, pulse ox 96% on room air. No new complaints on the patient. Physical examination: Gen: This is a a 72-year-old male. He is resting in bed and appears to be comfortable and in no acute distress VS: reviewed HEENT: Head is atraumatic, normocephalic. Pupils equal, round. Sclerae is anicteric. NECK: Supple. No JVD. LUNGS: Clear to auscultation. No wheezes or rhonchi. No intercostal retractions. HEART: Irregular rate and rhythm. No murmur. EXTREMITIES: No pedal edema. No calf tenderness. NEUROLOGICAL: Patient is awake, alert and oriented x3. Assessment Acute cholecystitis status post laparoscopic cholecystectomy 03/16 Permanent atrial fibrillation with RVR, currently rate controlled Hypertension Hyperlipidemia Coronary artery disease with previous PCI of the LAD Plan Continue patient's home cardiac medications but increase Lopressor to 50 mg twice daily Resume eliquis once cleared by general surgery Further recommendations to follow based upon clinical course Nurse practitioner note has been reviewed, I agree with documented findings and plan of care. Patient was seen and examined. Objective - Vital Signs Vital signs: Vital Signs Temp 97.8 F 03/18/23 07:58 Pulse 100 03/18/23 08:53 Resp 16 03/18/23 07:58 BP 139/82 03/18/23 07:58 Pulse Ox 96 03/18/23 08:43 FiO2 Intake & Output 03/17/23 03/18/23 03/18/23 18:59 06:59 18:59 Intake Total 640 540 180 Output Total 3240 Balance -2600 540 180 Intake: Intake, IV Titration 100 Amount metroNIDAZOLE-NS PMX 500 100 mg In Saline 1 100ml.bag @ 100 mls/hr IVPB Q8HR [facility] Rx#:[id number] Oral 540 540 180 Output: Drainage 65 Right Abdomen 65 Urine 3175 Straight 550 Other: Voiding Method Urinal Urinal - Labs CBC & Chem 7: 03/18/23 07:38 03/18/23 07:38 Labs: Abnormal Lab Results - Last 24 Hours (Table) 03/18/23 03/18/23 Range/Units 07:38 07:38 WBC 10.8 H (3.8-10.6) k/uL RBC 3.87 L (4.30-5.90) m/uL Hgb 12.5 L (13.0-17.5) gm/dL Hct 37.4 L (39.0-53.0) % Sodium 136 L (137-145) mmol/L Creatinine 0.64 L (0.66-1.25) mg/dL Glucose 100 H (74-99) mg/dL Calcium 8.0 L (8.4-10.2) mg/dL Microbiology - Last 24 Hours (Table) 03/15/23 15:26 Blood Culture - Preliminary Blood
[2023-03-18] MEDS ORDERED: HYDROcodone/APAP 5-325MG 1 EACH TAB PO PRN (12:49)
[2023-03-18] MEDS: methylPREDNISolone SOD SUCCI 125 MG/2 ML VIAL IV SCH (12:56)
--- NOTE | 2023-03-18 14:25 | P.PN ---
Subjective Progress Note Date: 03/18/23 CHIEF COMPLAINT: Acute gangrenous cholecystitis HISTORY OF PRESENT ILLNESS: Patient postop day #2 status post laparoscopic cholecystectomy. Patient is lying in bed comfortably. Reports his pain controlled. Patient tolerated low-fat diet. Denies any flatus. He has been up and ambulating. Afebrile. WBC is down from 12.2-10.8 Hgb 12.5 PHYSICAL EXAM: VITAL SIGNS: Reviewed. GENERAL: Well-developed in no acute distress. ABDOMEN: Soft. Nondistended. Incision sites clean dry and intact NEUROLOGIC: Alert and oriented. Cranial nerves II through XII grossly intact. ASSESSMENT: 1. Acute gangrenous cholecystitis status post laparoscopic cholecystectomy PLAN: -Continue low-fat diet -Ok to resume Eliquis tonight -Continue pain management -Encouraged patient to use incentive spirometer -Encouraged patient ambulate -Continue antibiotics Physician Circuit Board Assembler note has been reviewed by physician. Signing provider agrees with the documented findings, assessment, and plan of care. I have personally seen and examined the patient, reviewed the LAWYER PROBATE /PAs history, exam and MDM and agree with the assessment and plan as written. Based on total visit time, I have performed more than 50% of the visit. As above: Patient having some abdominal discomfort. Says it the same as yesterday. He feels constipated. Mild nausea. We'll plan Knight catheter removal tomorrow. Add MiraLAX and Dulcolax. Ambulate. Objective - Vital Signs Vital signs: Vital Signs Temp 97.6 F 03/18/23 12:00 Pulse 96 03/18/23 12:18 Resp 16 03/18/23 12:00 BP 136/76 03/18/23 12:00 Pulse Ox 97 03/18/23 12:00 FiO2 Intake & Output 03/17/23 03/18/23 03/18/23 18:59 06:59 18:59 Intake Total 640 540 180 Output Total 3240 1300 Balance -2600 540 -1120 Intake: Intake, IV Titration 100 Amount metroNIDAZOLE-NS PMX 500 100 mg In Saline 1 100ml.bag @ 100 mls/hr IVPB Q8HR [facility] Rx#:[id number] Oral 540 540 180 Output: Drainage 65 Right Abdomen 65 Urine 3175 1300 Straight 550 Other: Voiding Method Urinal Urinal - Labs CBC & Chem 7: 03/18/23 07:38 03/18/23 07:38 Labs: Abnormal Lab Results - Last 24 Hours (Table) 03/18/23 03/18/23 Range/Units 07:38 07:38 WBC 10.8 H (3.8-10.6) k/uL RBC 3.87 L (4.30-5.90) m/uL Hgb 12.5 L (13.0-17.5) gm/dL Hct 37.4 L (39.0-53.0) % Sodium 136 L (137-145) mmol/L Creatinine 0.64 L (0.66-1.25) mg/dL Glucose 100 H (74-99) mg/dL Calcium 8.0 L (8.4-10.2) mg/dL Microbiology - Last 24 Hours (Table) 03/15/23 15:26 Blood Culture - Preliminary Blood
--- NOTE | 2023-03-18 14:25 | P.PN ---
Subjective Progress Note Date: 03/18/23 I am seeing this patient in consultation today 03/16/2023 for shortness of breath after presenting with acute cholecystitis back on March 14. Patient is a 72-year-old white male with past medical history is significant for asthma, interstitial lung disease, atrial fibrillation anticoagulated on Eliquis, coronary artery disease with history of stents to the LAD, hyperlipidemia, hypertension, GERD. He does normally follows with Dr. Brown in the office for his mild persistent asthma and interstitial lung disease. Patient came to the emergency room on March 14 complaining of right upper quadrant abdominal pain. He states this has been intermittent for the past year, but worsened on Wednesday. It is exacerbated by greasy food intake. There has also been some associated bilious vomiting. No bowel movement reported since Wednesday. He was febrile on arrival. Both abdominal CT and ultrasound both indicated suspected cholecystitis. Patient was started on a combination of Rocephin and Flagyl. There are plans for definitive cholecystectomy tomorrow. Patient was also found to be in atrial fibrillation with rapid ventricular rate on arrival, and was started on Cardizem infusion. Currently, the patient is bradycardic, and I recommend pausing the patient's Cardizem. Patient is currently sitting up in bed, on 4 L/m nasal cannula, in no acute distress. Chest x-ray from earlier yesterday showed moderate cardiomegaly with prominent interstitial lung markings felt to be chronic. No focal consolidation or evidence of pneumonia. Most recent CBC from yesterday shows a improved WBC count down to 13.7, hemoglobin 16.5, hematocrit 49, platelets 143. BMP from yesterday shows a sodium 135, potassium 4.8, chloride 102, serum bicarb 18, BUN 13, creatinine 0.74, glucose 135. Currently receiving normal saline infusing at 130 ML's per hour. Lactic acid level was not elevated. Patient is currently being monitored on the cardiac stepdown unit. , 03/17/2023, the patient is postop day #1. The patient underwent a laparoscopic on ECMO for an acute gangrenous cholecystitis. The patient is doing well. The patient is on room air oxygen. The patient has no nausea. His tolerating clear liquid diet. IVAN drain is in place. Remains in atrial fibrillation. He did encounter some urinary retention and a Knight catheter was inserted. Blood work from today shows a drop in the delivery was down to 12.2 with hemoglobin 12.7 and a platelet count of 147. BUN is at 20 with a creatinine of 0.6. Sodium is at 136 and potassium levels at 4.1. LFTs are normal. On 03/18/2023, the patient is still recovering from the surgery. The patient is having some increased bronchospasm and wheezing on today's evaluation. The patient is postoperative day #2. The patient underwent a laparoscopic cholec ystectomy. The white cell count is improving and the patient remains on IV Rocephin and Flagyl for now. He is on room air oxygen. No chest pain. IVAN drain is still in place.. The pelvis is on is down to 10.8 with a hemoglobin of 12.5. BUN is at 30 with a creatinine of 0.6. Sodium level is at 134. Objective - Vital Signs Vital signs: Vital Signs Temp 97.8 F 03/18/23 07:58 Pulse 100 03/18/23 08:53 Resp 16 03/18/23 07:58 BP 139/82 03/18/23 07:58 Pulse Ox 96 03/18/23 08:43 FiO2 Intake & Output 03/17/23 03/18/23 03/18/23 18:59 06:59 18:59 Intake Total 640 540 180 Output Total 3240 Balance -2600 540 180 Intake: Intake, IV Titration 100 Amount metroNIDAZOLE-NS PMX 500 100 mg In Saline 1 100ml.bag @ 100 mls/hr IVPB Q8HR [facility] Rx#:[id number] Oral 540 540 180 Output: Drainage 65 Right Abdomen 65 Urine 3175 Straight 550 Other: Voiding Method Urinal Urinal - Exam GENERAL EXAM: Alert, 72-year-old white male appearing stated age, comfortable in no apparent distress. HEAD: Normocephalic and atraumatic EYES: Normal reaction of pupils, equal size. NOSE: Clear with pink turbinates. THROAT: No erythema or exudates. NECK: No masses, no JVD. CHEST: No chest wall deformity. LUNGS: Equal air entry with mild expiratory wheezes heard throughout and bibasil ar Velcro crackles. ABDOMEN: No hepatosplenomegaly, active bowel sounds, the surgical sites are cl jamila and the patient has a IVAN drain in the right upper quadrant with bloody serous drainage. SPINE: No scoliosis or deformity SKIN: No rashes CENTRAL NERVOUS SYSTEM: No focal deficits, tone is normal in all 4 extremities. EXTREMITIES: There is no peripheral edema, clubbing, or cyanosis. Peripheral p ulses are intact. - Labs CBC & Chem 7: 03/18/23 07:38 03/18/23 07:38 Labs: Abnormal Lab Results - Last 24 Hours (Table) 03/18/23 03/18/23 Range/Units 07:38 07:38 WBC 10.8 H (3.8-10.6) k/uL RBC 3.87 L (4.30-5.90) m/uL Hgb 12.5 L (13.0-17.5) gm/dL Hct 37.4 L (39.0-53.0) % Sodium 136 L (137-145) mmol/L Creatinine 0.64 L (0.66-1.25) mg/dL Glucose 100 H (74-99) mg/dL Calcium 8.0 L (8.4-10.2) mg/dL Microbiology - Last 24 Hours (Table) 03/15/23 15:26 Blood Culture - Preliminary Blood Assessment and Plan Assessment: Acute cholecystitis, post cholecystectomy and the patient is postoperative day # 2 Chronic bronchial asthma and acute exacerbation of the patient is noted to be increased the bronchospastic and wheezy. History, the patient has history of moderate intermittent bronchial asthma. Chronic atrial fibrillation with adequate rate control with metoprolol 25 mg by mouth twice a day. No tobacco dependence for now Acute hypoxemic respiratory failure currently on 4 L/m nasal cannula. Possibly related to above and mild asthma exacerbation. Chest x-ray shows moderate cardiomegaly with reportedly normal pulmonary vasculture. There are some chronic interstitial changes. The patient's oxygen is improved and the patient is currently on room air oxygen. Leukocytosis, improving Interstitial lung disease, stable Mild persistent bronchial asthma, stable Coronary artery disease, with prior stents to the LAD 2 Essential hypertension Hyperlipidemia GERD Obesity with a BMI of 34 kg/m Plan: We'll put the patient on Solu-Medrol 60 mg IV every 24 hours. Stop Symbicort assistance patient accommodation of budesonide and Perforomist, seems twice a day in combination with the [employer] [facility] Incentive spirometer Advance diet as tolerated Patient is currently on room air oxygen Pulmonary status is stable Monitor the output from the IVAN drain Continue same antibiotic coverage included a combination of Rocephin and Flagyl Cardiology regarding the chronic active fibrillation No anticoagulants for now Ambulate the patient White cell count is improving We'll continue to follow
--- NOTE | 2023-03-18 15:12 | P.PN ---
Subjective Progress Note Date: 03/18/23 Patient seen and examined at bedside. He feels better than yesterday. He is not really having much abdominal pain. Passing gas but no bowel movement. He denies any chest pain or shortness of breath. Has some cough. Vital signs reviewed General: nontoxic, no distress, appears at stated age Cardiovascular: S1S2 reg, no murmur, positive posterior tibial pulse bilateral, Lungs: Decreased breath sounds bilateral, no rhonchi, no rales , scattered wheezing, No accessory muscle use Abdominal: soft, +tender to palpation RUQ, no guarding, no appreciable organomegaly Ext: no gross muscle atrophy, no edema b/l lower extremities, no contractures Neuro: CN II-XI grossly intact, no focal neuro deficits Psych: Alert, oriented, appropriate affect Assessment/plan: Acute gangerenouse cholecystitis with sepsis s/p lap thuy 03/16/23 - Gen surgery note reviewed. Resume Eliquis tonight. Continue low-fat diet. Continue antibiotics. -Continue with Rocephin 2 g every 24 hours, Flagyl 500 mg every 8 hours day #4 -Stop IVF - monitor for recurrent fevers Atrial fibrillation with rapid ventricular response -Cardiology note increase Lopressor to 50 mg twice daily. Resume Eliquis once cleared by surgery., Which will be tonight Mild acute exacerbation of asthma Acute hypoxic respiratory failure Interstitial lung disease Mild persistent bronchial asthma -Pulmonary note reviewed: Solu-Medrol 60 IV every 24 hours, budesonide and Perforomist -Continue with DuoNeb 4 times daily scheduled and every 4 as needed Chronic/resolved Hypothyroidism Hyponatremia azotemia, resolved Imaging: None new for Review Data Review: WBC 10.8, hemoglobin 12.5, sodium 136, creatinine 0.64 Thank you for allowing us to participate in the care of this pleasant patient. Do not hesitate to contact us with questions. Someone can be reached from the [facility] hospitalist group all hours of the day at [phone] or via [employer]. Objective - Vital Signs Vital signs: Vital Signs Temp 97.6 F 03/18/23 12:00 Pulse 96 03/18/23 12:18 Resp 16 03/18/23 12:00 BP 136/76 03/18/23 12:00 Pulse Ox 97 03/18/23 12:00 FiO2 Intake & Output 03/17/23 03/18/23 03/18/23 18:59 06:59 18:59 Intake Total 640 540 380 Output Total 3240 1300 Balance -2600 540 -920 Intake: Intake, IV Titration 100 Amount metroNIDAZOLE-NS PMX 500 100 mg In Saline 1 100ml.bag @ 100 mls/hr IVPB Q8HR [facility] Rx#:[id number] Oral 540 540 380 Output: Drainage 65 Right Abdomen 65 Urine 3175 1300 Straight 550 Other: Voiding Method Urinal Urinal - Labs CBC & Chem 7: 03/18/23 07:38 03/18/23 07:38 Labs: Abnormal Lab Results - Last 24 Hours (Table) 03/18/23 03/18/23 Range/Units 07:38 07:38 WBC 10.8 H (3.8-10.6) k/uL RBC 3.87 L (4.30-5.90) m/uL Hgb 12.5 L (13.0-17.5) gm/dL Hct 37.4 L (39.0-53.0) % Sodium 136 L (137-145) mmol/L Creatinine 0.64 L (0.66-1.25) mg/dL Glucose 100 H (74-99) mg/dL Calcium 8.0 L (8.4-10.2) mg/dL Microbiology - Last 24 Hours (Table) 03/15/23 15:26 Blood Culture - Preliminary Blood
[2023-03-18] MEDS ORDERED: guaiFENesin 600 MG TABLET.ER PO PRN (15:15)
[2023-03-18] MEDS: polyethylene glycoL 3350 17 GM POWD.PACK PO SCH (15:49)
[2023-03-18] MEDS: TAMSULOSIN 0.4 MG CAP.ER.24H PO SCH (17:59)
[2023-03-18] MEDS: METOPROLOL TARTRATE 50 MG TAB PO SCH (20:17)
[2023-03-18] MEDS: APIXABAN 5 MG TAB PO SCH (20:17)
[2023-03-18] MEDS: MONTELUKAST 10 MG TAB PO SCH (20:17)
[2023-03-18] MEDS: BUDESONIDE 0.5 MG/2 ML NEBU INHALATION SCH (22:17)
[2023-03-18] MEDS: FORMOTEROL FUMARATE 20 MCG/2 ML NEBU INHALATION SCH (22:18)
[2023-03-19] MEDS: metroNIDAZOLE-NS PMX 500 MG in SALINE 1 100ML.BAG IVPB SCH ×4 (00:22→23:22)
[2023-03-19] MEDS: bisacodyL 10 MG SUPP RECTAL SCH ×2 (04:29→08:25)
[2023-03-19] MEDS: PANTOPRAZOLE 40 MG TABLET PO SCH (06:15)
[2023-03-19] MEDS: methylPREDNISolone SOD SUCCI 125 MG/2 ML VIAL IV SCH (08:20)
[2023-03-19] MEDS: APIXABAN 5 MG TAB PO SCH ×2 (08:21→19:48)
[2023-03-19] MEDS: METOPROLOL TARTRATE 50 MG TAB PO SCH ×2 (08:21→19:49)
[2023-03-19] MEDS: CHOLECALCIFEROL 10 MCG (400 IU) TABLET PO SCH (08:21)
[2023-03-19] MEDS: ATORVASTATIN 80 MG TAB PO SCH (08:24)
[2023-03-19] MEDS: polyethylene glycoL 3350 17 GM POWD.PACK PO SCH (08:25)
[2023-03-19] MEDS: BUDESONIDE 0.5 MG/2 ML NEBU INHALATION SCH ×2 (08:26→20:47)
[2023-03-19] MEDS: FORMOTEROL FUMARATE 20 MCG/2 ML NEBU INHALATION SCH ×2 (08:26→20:47)
[2023-03-19] MEDS: IPRATROPIUM-ALBUTEROL 3 ML NEB INHALATION SCH ×4 (08:26→20:46)
[2023-03-19 09:58] VITALS: BMI 34.1
--- NOTE | 2023-03-19 12:10 | P.PN ---
Subjective Progress Note Date: 03/19/23 History of present illness: This is a 72-year-old male patient of Dr. Vazquez with past medical history of co ronary artery disease with stenting of the LAD, carotid atherosclerosis, hypertension, dyslipidemia, COPD. Patient states that last week he was having some chest pain on Wednesday presented to [facility] was found to be in atrial fibrillation started on eliquis and Lopressor. He states that he has had ongoing problems or abdominal pain in the right upper quadrant that sometimes radiates to his chest. He presented for this reason found to be febrile, started on antibiotics and treated for acute cholecystitis with plan for surgical intervention with Dr. Hopson. This was scheduled for a yesterday however patient had A. fib with RVR up to 120s ventricular rate. He was started on Cardizem drip at 10 mg per hour which has been subsequently discontinued due to bradycardia. Telemetry reveals A. fib running in the 50s and 60s. EKG atrial fibrillation 108, atrial fibrillation 122 bpm Chest x-ray: moderate cardiomegaly WBC 16.9, hemoglobin 13.6, platelet count 154. BUN 22, creatinine 1.02, potassium 4.2. Liver function tests normal. ProBNP 819 Home cardiac medications: Eliquis 5 mg twice daily, aspirin 81 mg at bedtime, lisinopril 10 mg at bedtime, Lopressor 25 mg twice daily, Crestor 40 mg daily Cardiac catheterization 2018 revealed intermediate to severe disease involving the distal LAD status post stent. Echocardiogram 11/2018 normal EF, mild MR, mild TR MPI 2020 normal EF normal study 03/17 Yesterday, patient underwent laparoscopic cholecystectomy with Dr. Hopson. P atient states that his abdominal pain is significantly improved. He denies having any chest pain, no shortness of breath and no palpitations. Blood pressures 128/71, heart rate in the 80s. Telemetry is atrial fibrillation. Patient has required Kinght catheter placement for urinary retention. 03/18 Diet has been advanced to low-fat per general surgery. Eliquis remains on hold per general surgery. His heart rate is in the 90s to low 100s, blood pressure 139/82, pulse ox 96% on room air. No new complaints on the patient. 03/19 Patient states that the abdominal pain is much less but he still can feel it there. Eliquis was resumed last evening as it was cleared by general surgery. He is reaching 2500 ML's on incentive spirometry. Heart rate is in the 80s and patient remains in atrial fibrillation, blood pressure 146/76. Physical examination: Gen: This is a a 72-year-old male. He is resting in bed and appears to be comfortable and in no acute distress VS: reviewed HEENT: Head is atraumatic, normocephalic. Pupils equal, round. Sclerae is anicteric. NECK: Supple. No JVD. LUNGS: Clear to auscultation. No wheezes or rhonchi. No intercostal retractions. HEART: Irregular rate and rhythm. No murmur. EXTREMITIES: No pedal edema. No calf tenderness. NEUROLOGICAL: Patient is awake, alert and oriented x3. Assessment Acute cholecystitis status post laparoscopic cholecystectomy 03/16 Permanent atrial fibrillation with RVR, currently rate controlled Hypertension Hyperlipidemia Coronary artery disease with previous PCI of the LAD Plan Continue patient's home cardiac medications but increase Lopressor to 50 mg twice daily Continue home cardiac medications including eliquis Patient will follow up with Dr. Vazquez at the time of discharge. Nurse practitioner note has been reviewed, I agree with documented findings and plan of care. Patient was seen and examined. Objective - Vital Signs Vital signs: Vital Signs Temp 97.8 F 03/19/23 08:19 Pulse 84 03/19/23 08:47 Resp 16 03/19/23 08:19 BP 146/76 03/19/23 08:19 Pulse Ox 98 03/19/23 08:19 FiO2 Intake & Output 03/18/23 03/19/23 03/19/23 18:59 06:59 18:59 Intake Total 970 420 Output Total 2020 Balance -1050 420 Weight 107.955 kg Intake: Intake, IV Titration 410 Amount Lactated Ringers 1,000 ml 160 @ 0 mls/hr IV .STK-MED ONE Rx#:[id number] Sodium Chloride 0.9% 50 50 ml @ 0 mls/hr IV .STK-MED ONE with ceFAZolin 2,000 mg Rx#:[id number] metroNIDAZOLE-NS PMX 500 200 mg In Saline 1 100ml.bag @ 100 mls/hr IVPB Q8HR [facility] Rx#:[id number] Oral 560 420 Output: Drainage 20 Right Abdomen 20 Urine 2000 Other: Voiding Method Indwelling Catheter # Voids 660 3 # Bowel Movements 1 - Labs CBC & Chem 7: 03/18/23 07:38 03/18/23 07:38 Labs: Microbiology - Last 24 Hours (Table) 03/15/23 15:26 Blood Culture - Preliminary Blood
--- NOTE | 2023-03-19 12:19 | P.PN ---
Subjective Progress Note Date: 03/19/23 Patient seen and examined at bedside. He feels better than yesterday. He is not really having much abdominal pain. Having bowel movements. He denies any chest pain or shortness of breath. Denies any significant cough. Knight catheter in place. Vital signs reviewed General: nontoxic, no distress, appears at stated age Cardiovascular: S1S2 reg, no murmur, positive posterior tibial pulse bilateral, Lungs: Decreased breath sounds bilateral, no rhonchi, no rales , no wheezing, No accessory muscle use Abdominal: soft, no tenderness, no guarding, no appreciable organomegaly Ext: no gross muscle atrophy, no edema b/l lower extremities, no contractures Neuro: CN II-XI grossly intact, no focal neuro deficits Psych: Alert, oriented, appropriate affect Assessment/plan: Acute [place] cholecystitis with sepsis s/p lap thuy 03/16/23 - Gen surgery following, Continue low-fat diet. Continue antibiotics. -Continue with Rocephin 2 g every 24 hours, Flagyl 500 mg every 8 hours day #4 - monitor for recurrent fevers -Discontinue Knight catheter today Atrial fibrillation with rapid ventricular response -Cardiology note reviewed, on Lopressor 50 mg twice daily, and Eliquis -Outpatient follow-up once discharge Mild acute exacerbation of asthma Acute hypoxic respiratory failure Interstitial lung disease Mild persistent bronchial asthma -Pulmonary following, Solu-Medrol 60 IV every 24 hours, budesonide and Perforomist -Continue with DuoNeb 4 times daily scheduled and every 4 as needed -Patient will likely require oral steroids at the time of discharge Chronic/resolved Hypothyroidism Hyponatremia, stable azotemia, resolved Imaging: None new for Review Data Review: No new labs, blood cultures negative up-to-date Thank you for allowing us to participate in the care of this pleasant patient. Do not hesitate to contact us with questions. Someone can be reached from the [facility] [place] [facility] [place] group all hours of the day at [phone] or via [employer]. Objective - Vital Signs Vital signs: Vital Signs Temp 97.8 F 03/19/23 08:19 Pulse 80 03/19/23 12:17 Resp 16 03/19/23 08:19 BP 146/76 03/19/23 08:19 Pulse Ox 98 03/19/23 08:19 FiO2 Intake & Output 03/18/23 03/19/23 03/19/23 18:59 06:59 18:59 Intake Total 970 420 Output Total 2019 Balance -1050 420 Weight 107.955 kg Intake: Intake, IV Titration 410 Amount Lactated Ringers 1,000 ml 160 @ 0 mls/hr IV .STK-MED ONE Rx#:[id number] Sodium Chloride 0.9% 50 50 ml @ 0 mls/hr IV .STK-MED ONE with ceFAZolin 2,000 mg Rx#:[id number] metroNIDAZOLE-NS PMX 500 200 mg In Saline 1 100ml.bag @ 100 mls/hr IVPB Q8HR [facility] Rx#:[id number] Oral 560 420 Output: Drainage 20 Right Abdomen 20 Urine 2000 Other: Voiding Method Indwelling Catheter # Voids 660 3 # Bowel Movements 1 - Labs CBC & Chem 7: 03/18/23 07:38 03/18/23 07:38 Labs: Microbiology - Last 24 Hours (Table) 03/15/23 15:26 Blood Culture - Preliminary Blood
--- NOTE | 2023-03-19 12:50 | P.PN ---
Subjective Progress Note Date: 03/19/23 I am seeing this patient in consultation today 03/16/2023 for shortness of breath after presenting with acute cholecystitis back on March 14. Patient is a 72-year-old white male with past medical history is significant for asthma, interstitial lung disease, atrial fibrillation anticoagulated on Eliquis, coronary artery disease with history of stents to the LAD, hyperlipidemia, hypertension, GERD. He does normally follows with Dr. Brown in the office for his mild persistent asthma and interstitial lung disease. Patient came to the emergency room on March 14 complaining of right upper quadrant abdominal pain. He states this has been intermittent for the past year, but worsened on Wednesday. It is exacerbated by greasy food intake. There has also been some associated bilious vomiting. No bowel movement reported since Wednesday. He was febrile on arrival. Both abdominal CT and ultrasound both indicated suspected cholecystitis. Patient was started on a combination of Rocephin and Flagyl. There are plans for definitive cholecystectomy tomorrow. Patient was also found to be in atrial fibrillation with rapid ventricular rate on arrival, and was started on Cardizem infusion. Currently, the patient is bradycardic, and I recommend pausing the patient's Cardizem. Patient is currently sitting up in bed, on 4 L/m nasal cannula, in no acute distress. Chest x-ray from earlier yesterday showed moderate cardiomegaly with prominent interstitial lung markings felt to be chronic. No focal consolidation or evidence of pneumonia. Most recent CBC from yesterday shows a improved WBC count down to 13.7, hemoglobin 16.5, hematocrit 49, platelets 143. BMP from yesterday shows a sodium 135, potassium 4.8, chloride 102, serum bicarb 18, BUN 13, creatinine 0.74, glucose 135. Currently receiving normal saline infusing at 130 ML's per hour. Lactic acid level was not elevated. Patient is currently being monitored on the cardiac stepdown unit. , 03/17/2023, the patient is postop day #1. The patient underwent a laparoscopic on ECMO for an acute gangrenous cholecystitis. The patient is doing well. The patient is on room air oxygen. The patient has no nausea. His tolerating clear liquid diet. IVAN drain is in place. Remains in atrial fibrillation. He did encounter some urinary retention and a Knight catheter was inserted. Blood work from today shows a drop in the delivery was down to 12.2 with hemoglobin 12.7 and a platelet count of 147. BUN is at 20 with a creatinine of 0.6. Sodium is at 136 and potassium levels at 4.1. LFTs are normal. On 03/18/2023, the patient is still recovering from the surgery. The patient is having some increased bronchospasm and wheezing on today's evaluation. The patient is postoperative day #2. The patient underwent a laparoscopic cholec ystectomy. The white cell count is improving and the patient remains on IV Rocephin and Flagyl for now. He is on room air oxygen. No chest pain. IVAN drain is still in place.. The pelvis is on is down to 10.8 with a hemoglobin of 12.5. BUN is at 30 with a creatinine of 0.6. Sodium level is at 134. On 03/19/2023, the patient is less bronchospastic and wheezy. He is on IV Solu- Medrol. He is on room air oxygen. He is on bronchodilators. His postoperative day #3. IVAN drain is in place. Remains on antibiotics. Ambulating. Tolerating diet. The white cell count is down to 10.8, platelet is at 168, BUN is at 50 with a creatinine of 0.6. Objective - Vital Signs Vital signs: Vital Signs Temp 97.8 F 03/19/23 08:19 Pulse 84 03/19/23 08:47 Resp 16 03/19/23 08:19 BP 146/76 03/19/23 08:19 Pulse Ox 98 03/19/23 08:19 FiO2 Intake & Output 03/18/23 03/19/23 03/19/23 18:59 06:59 18:59 Intake Total 970 420 Output Total 2019 Balance -1050 420 Weight 107.955 kg Intake: Intake, IV Titration 410 Amount Lactated Ringers 1,000 ml 160 @ 0 mls/hr IV .STK-MED ONE Rx#:[id number] Sodium Chloride 0.9% 50 50 ml @ 0 mls/hr IV .STK-MED ONE with ceFAZolin 2,000 mg Rx#:[id number] metroNIDAZOLE-NS PMX 500 200 mg In Saline 1 100ml.bag @ 100 mls/hr IVPB Q8HR [facility] Rx#:[id number] Oral 560 420 Output: Drainage 20 Right Abdomen 20 Urine 2000 Other: Voiding Method Indwelling Catheter # Voids 660 3 # Bowel Movements 1 - Exam GENERAL EXAM: Alert, 72-year-old white male appearing stated age, comfortable in no apparent distress. The patient is on room air oxygen HEAD: Normocephalic and atraumatic EYES: Normal reaction of pupils, equal size. NOSE: Clear with pink turbinates. THROAT: No erythema or exudates. NECK: No masses, no JVD. CHEST: No chest wall deformity. LUNGS: Equal air entry with mild expiratory wheezes heard throughout and bibasilar Velcro crackles. The patient is less bronchospastic and wheezing compared to yesterday ABDOMEN: No hepatosplenomegaly, active bowel sounds, the surgical sites are clean and the patient has a IVAN drain in the right upper quadrant with bloody serous drainage. SPINE: No scoliosis or deformity SKIN: No rashes CENTRAL NERVOUS SYSTEM: No focal deficits, tone is normal in all 4 extremities. EXTREMITIES: There is no peripheral edema, clubbing, or cyanosis. Peripheral pulses are intact. - Labs CBC & Chem 7: 03/18/23 07:38 03/18/23 07:38 Labs: Microbiology - Last 24 Hours (Table) 03/15/23 15:26 Blood Culture - Preliminary Blood Assessment and Plan Assessment: Acute cholecystitis, post cholecystectomy and the patient is postoperative day # 3 Chronic bronchial asthma and acute exacerbation of the patient is noted to be increased the bronchospastic and wheezy. Clinically improved on today's evaluation of the patient remains on IV Solu-Medrol and bronchodilators History, the patient has history of moderate intermittent bronchial asthma. Chronic atrial fibrillation with adequate rate control with metoprolol 25 mg by mouth twice a day. No tobacco dependence for now Acute hypoxemic respiratory failure currently on 4 L/m nasal cannula. Possibly related to above and mild asthma exacerbation. Chest x-ray shows moderate cardiomegaly with reportedly normal pulmonary vasculture. There are some chronic interstitial changes. The patient's oxygen is improved and the patient is currently on room air oxygen. Leukocytosis, improving Interstitial lung disease, stable Mild persistent bronchial asthma, stable Coronary artery disease, with prior stents to the LAD 2 Essential hypertension Hyperlipidemia GERD Obesity with a BMI of 34 kg/m Plan: Continue IV Solu-Medrol 60 mg IV every 24 hours. Continue budesonide and Perforomist, seems twice a day in combination with the [employer] [facility] Incentive spirometer Advance diet as tolerated Patient is currently on room air oxygen Pulmonary status is stable Monitor the output from the IVAN drain Continue same antibiotic coverage included a combination of Rocephin and Flagyl Cardiology regarding the chronic active fibrillation Anticoagulation with Eliquis has been restarted Ambulate the patient White cell count is improving Clinically improving
--- NOTE | 2023-03-19 13:45 | P.PN ---
Subjective Progress Note Date: 03/19/23 Principal diagnosis: Acute cholecystitis Patient doing well today. He is ambulating in the hallways. He is tolerating his regular diet. Knight catheter was removed earlier today. No nausea or vomiting. Had a bowel movement. Mild shortness of breath. Objective - Vital Signs Vital signs: Vital Signs Temp 97.8 F 03/19/23 08:19 Pulse 84 03/19/23 12:41 Resp 16 03/19/23 12:41 BP 145/89 03/19/23 12:41 Pulse Ox 97 03/19/23 12:41 FiO2 Intake & Output 03/18/23 03/19/23 03/19/23 18:59 06:59 18:59 Intake Total 970 600 Output Total 2020 Balance -1050 600 Weight 107.955 kg Intake: Intake, IV Titration 410 Amount Lactated Ringers 1,000 ml 160 @ 0 mls/hr IV .STK-MED ONE Rx#:[id number] Sodium Chloride 0.9% 50 50 ml @ 0 mls/hr IV .STK-MED ONE with ceFAZolin 2,000 mg Rx#:[id number] metroNIDAZOLE-NS PMX 500 200 mg In Saline 1 100ml.bag @ 100 mls/hr IVPB Q8HR [facility] Rx#:[id number] Oral 560 600 Output: Drainage 20 Right Abdomen 20 Urine 2000 Other: Voiding Method Indwelling Catheter # Voids 660 3 # Bowel Movements 1 - Exam Abdomen: Soft, nontender, nondistended, incisions clean dry, IVAN drain serosanguineous - Labs CBC & Chem 7: 03/18/23 07:38 03/18/23 07:38 Labs: Microbiology - Last 24 Hours (Table) 03/15/23 15:26 Blood Culture - Preliminary Blood Assessment and Plan (1) Cholecystitis Narrative/Plan: 72-year-old male with acute cholecystitis. Clinically patient continues to improve. Shortness of breath is improving. Likely related to acute lung injury from sepsis. Continue antibiotics. Continue regular diet. Possible discharge tomorrow if doing well and cleared by consultants. Probable IVAN drain removal prior to discharge. Current Visit: Yes Status: Acute Code(s): K81.9 - CHOLECYSTITIS, UNSPECIFIED SNOMED Code(s): 89165252
[2023-03-19] MEDS: TAMSULOSIN 0.4 MG CAP.ER.24H PO SCH (17:28)
[2023-03-19] MEDS: MONTELUKAST 10 MG TAB PO SCH (19:49)
[2023-03-20] MEDS: PANTOPRAZOLE 40 MG TABLET PO SCH (06:25)
[2023-03-20] MEDS: bisacodyL 10 MG SUPP RECTAL SCH (08:22)
[2023-03-20] MEDS: ATORVASTATIN 80 MG TAB PO SCH (08:32)
[2023-03-20] MEDS: METOPROLOL TARTRATE 50 MG TAB PO SCH ×2 (08:32→21:01)
[2023-03-20] MEDS: APIXABAN 5 MG TAB PO SCH ×2 (08:32→21:01)
[2023-03-20] MEDS: CHOLECALCIFEROL 10 MCG (400 IU) TABLET PO SCH (08:32)
[2023-03-20] MEDS: methylPREDNISolone SOD SUCCI 125 MG/2 ML VIAL IV SCH (08:32)
[2023-03-20] MEDS: metroNIDAZOLE-NS PMX 500 MG in SALINE 1 100ML.BAG IVPB SCH ×2 (08:32→15:59)
[2023-03-20] MEDS: polyethylene glycoL 3350 17 GM POWD.PACK PO SCH (08:33)
[2023-03-20] MEDS: BUDESONIDE 0.5 MG/2 ML NEBU INHALATION SCH ×2 (09:07→21:23)
[2023-03-20] MEDS: IPRATROPIUM-ALBUTEROL 3 ML NEB INHALATION SCH ×4 (09:08→21:23)
[2023-03-20] MEDS: FORMOTEROL FUMARATE 20 MCG/2 ML NEBU INHALATION SCH ×2 (09:08→21:23)
--- NOTE | 2023-03-20 10:02 | PN ---
PROGRESS NOTE SUBJECTIVE: Andrew is a 72-year-old gentleman, who underwent cholecystectomy for gangrenous cholecystitis and has a history of atrial fibrillation, for which we were involved in his care. He is doing well from cardiac standpoint. OBJECTIVE: VITAL SIGNS: Heart rate is 57 beats per minute. Blood pressure is 140/75, respiratory rate is 18. RESPIRATIONS: Chest exam reveals diminished air entry at the bases. CARDIAC: Heart exam reveals first and second heart sounds; irregular regular rhythm. EXTREMITIES: Examination of the extremities reveal trace edema. Peripheral pulses are palpable. The patient is currently on Eliquis 5 b.i.d., Lopressor 50 b.i.d. ASSESSMENT: Persistent atrial fibrillation with controlled ventricular rate. PLAN: The patient is doing well, stable for discharge. He will keep the followup that he already has through our office. MMODL / IJN: [id number] /
[2023-03-20] MEDS: predniSONE 20 MG TAB PO SCH (10:52)
--- NOTE | 2023-03-20 12:05 | P.PN ---
Subjective Progress Note Date: 03/20/23 Patient seen and examined at bedside. He feels better than yesterday. He is not really having much abdominal pain. Having bowel movements. He denies any chest pain or shortness of breath. Denies any significant cough. Vital signs reviewed General: nontoxic, no distress, appears at stated age Cardiovascular: S1S2 reg, no murmur, positive posterior tibial pulse bilateral, Lungs: CTAB, no rhonchi, no rales , no wheezing, No accessory muscle use Abdominal: soft, no tenderness, no guarding, no appreciable organomegaly Ext: no gross muscle atrophy, no edema b/l lower extremities, no contractures Neuro: CN II-XI grossly intact, no focal neuro deficits Psych: Alert, oriented, appropriate affect Assessment/plan: Acute [place] cholecystitis with sepsis s/p lap thuy 03/16/23 - Gen surgery following, Continue low-fat diet -on IV rocephin and flagyl - monitor for recurrent fevers Atrial fibrillation with rapid ventricular response -Cardiology note reviewed, on Lopressor 50 mg twice daily, and Eliquis -Outpatient follow-up once discharge Mild acute exacerbation of asthma Acute hypoxic respiratory failure, resolved Interstitial lung disease Mild persistent bronchial asthma -Pulmonary following, oral prednisone, budesonide and Perforomist -Continue with DuoNeb 4 times daily scheduled and every 4 as needed Chronic/resolved Hypothyroidism Hyponatremia, stable azotemia, resolved Imaging: None new for Review Data Review: No new labs, blood cultures negative up-to-date Patient is otherwise medically optimized for discharge home. Home meds recon ciled. Thank you for allowing us to participate in the care of this pleasant patient. Do not hesitate to contact us with questions. Someone can be reached from the [facility] [place]Note 3] hospitalist group all hours of the day at [phone] or via [employer]. Objective - Vital Signs Vital signs: Vital Signs Temp 97.8 F 03/20/23 11:07 Pulse 69 03/20/23 11:44 Resp 18 03/20/23 11:44 BP 134/80 03/20/23 11:07 Pulse Ox 98 03/20/23 11:28 FiO2 Intake & Output 03/19/23 03/20/23 03/20/23 18:59 06:59 18:59 Intake Total 1075 360 Output Total 15 400 8 Balance 1060 -400 352 Weight 107.955 kg Intake: Oral 1075 360 Output: Drainage 15 8 Right Abdomen 15 8 Urine 400 Other: # Voids 2 1 # Bowel Movements 1 - Labs CBC & Chem 7: 03/18/23 07:38 03/18/23 07:38
--- NOTE | 2023-03-20 16:03 | P.PN ---
Subjective Progress Note Date: 03/20/23 I am seeing this patient in consultation today 03/16/2023 for shortness of breath after presenting with acute cholecystitis back on March 14. Patient is a 72-year-old white male with past medical history is significant for asthma, interstitial lung disease, atrial fibrillation anticoagulated on Eliquis, coronary artery disease with history of stents to the LAD, hyperlipidemia, hypertension, GERD. He does normally follows with Dr. Brown in the office for his mild persistent asthma and interstitial lung disease. Patient came to the emergency room on March 14 complaining of right upper quadrant abdominal pain. He states this has been intermittent for the past year, but worsened on Wednesday. It is exacerbated by greasy food intake. There has also been some associated bilious vomiting. No bowel movement reported since Wednesday. He was febrile on arrival. Both abdominal CT and ultrasound both indicated suspected cholecystitis. Patient was started on a combination of Rocephin and Flagyl. There are plans for definitive cholecystectomy tomorrow. Patient was also found to be in atrial fibrillation with rapid ventricular rate on arrival, and was started on Cardizem infusion. Currently, the patient is bradycardic, and I recommend pausing the patient's Cardizem. Patient is currently sitting up in bed, on 4 L/m nasal cannula, in no acute distress. Chest x-ray from earlier yesterday showed moderate cardiomegaly with prominent interstitial lung markings felt to be chronic. No focal consolidation or evidence of pneumonia. Most recent CBC from yesterday shows a improved WBC count down to 13.7, hemoglobin 16.5, hematocrit 49, platelets 143. BMP from yesterday shows a sodium 135, potassium 4.8, chloride 102, serum bicarb 18, BUN 13, creatinine 0.74, glucose 135. Currently receiving normal saline infusing at 130 ML's per hour. Lactic acid level was not elevated. Patient is currently being monitored on the cardiac stepdown unit. , 03/17/2023, the patient is postop day #1. The patient underwent a laparoscopic on ECMO for an acute gangrenous cholecystitis. The patient is doing well. The patient is on room air oxygen. The patient has no nausea. His tolerating clear liquid diet. IVAN drain is in place. Remains in atrial fibrillation. He did encounter some urinary retention and a Knight catheter was inserted. Blood work from today shows a drop in the delivery was down to 12.2 with hemoglobin 12.7 and a platelet count of 147. BUN is at 20 with a creatinine of 0.6. Sodium is at 136 and potassium levels at 4.1. LFTs are normal. On 03/18/2023, the patient is still recovering from the surgery. The patient is having some increased bronchospasm and wheezing on today's evaluation. The patient is postoperative day #2. The patient underwent a laparoscopic cholec ystectomy. The white cell count is improving and the patient remains on IV Rocephin and Flagyl for now. He is on room air oxygen. No chest pain. IVAN drain is still in place.. The pelvis is on is down to 10.8 with a hemoglobin of 12.5. BUN is at 30 with a creatinine of 0.6. Sodium level is at 134. On 03/19/2023, the patient is less bronchospastic and wheezy. He is on IV Solu- Medrol. He is on room air oxygen. He is on bronchodilators. His postoperative day #3. IVAN drain is in place. Remains on antibiotics. Ambulating. Tolerating diet. The white cell count is down to 10.8, platelet is at 168, BUN is at 50 with a creatinine of 0.6. On 03/20/2023, the patient has no specific complaints. The patient's postop day #4. Output from the IVAN drain is minimal at this point in time and the patient is having no major respiratory difficulties. He responded to inhaled corticosteroids on systemic corticosteroids as the patient was receiving IV Solu-Medrol every Objective - Vital Signs Vital signs: Vital Signs Temp 97.5 F L 03/20/23 08:00 Pulse 68 03/20/23 08:00 Resp 18 03/20/23 08:00 BP 145/77 03/20/23 08:00 Pulse Ox 98 03/20/23 08:00 FiO2 Intake & Output 03/19/23 03/20/23 03/20/23 18:59 06:59 18:59 Intake Total 1075 360 Output Total 15 400 8 Balance 1060 -400 352 Weight 107.955 kg Intake: Oral 1075 360 Output: Drainage 15 8 Right Abdomen 15 8 Urine 400 Other: # Voids 2 # Bowel Movements 1 - Exam GENERAL EXAM: Alert, 72-year-old white male appearing stated age, comfortable in no apparent distress. The patient is on room air oxygen HEAD: Normocephalic and atraumatic EYES: Normal reaction of pupils, equal size. NOSE: Clear with pink turbinates. THROAT: No erythema or exudates. NECK: No masses, no JVD. CHEST: No chest wall deformity. LUNGS: Equal air entry with mild expiratory wheezes heard throughout and bibasilar Velcro crackles. The patient is less bronchospastic and wheezing compared to yesterday ABDOMEN: No hepatosplenomegaly, active bowel sounds, the surgical sites are clean and the patient has a IVAN drain in the right upper quadrant with bloody serous drainage. SPINE: No scoliosis or deformity SKIN: No rashes CENTRAL NERVOUS SYSTEM: No focal deficits, tone is normal in all 4 extremities. EXTREMITIES: There is no peripheral edema, clubbing, or cyanosis. Peripheral pulses are intact. - Labs CBC & Chem 7: 03/18/23 07:38 03/18/23 07:38 Assessment and Plan Assessment: Acute cholecystitis, post cholecystectomy and the patient is postoperative day # 4 Chronic bronchial asthma and acute exacerbation of the patient is noted to be increased the bronchospastic and wheezy. Clinically improved on today's evaluation of the patient remains on IV Solu-Medrol and bronchodilators History, the patient has history of moderate intermittent bronchial asthma. Chronic atrial fibrillation with adequate rate control with metoprolol 25 mg by mouth twice a day. No tobacco dependence for now Acute hypoxemic respiratory failure currently on 4 L/m nasal cannula. Possibly related to above and mild asthma exacerbation. Chest x-ray shows moderate cardiomegaly with reportedly normal pulmonary vasculture. There are some chronic interstitial changes. The patient's oxygen is improved and the patient is currently on room air oxygen. Leukocytosis, improving Interstitial lung disease, stable Mild persistent bronchial asthma, stable Coronary artery disease, with prior stents to the LAD 2 Essential hypertension Hyperlipidemia GERD Obesity with a BMI of 34 kg/m Plan: Discontinue the IV Solu-Medrol With the patient 20 mg of prednisone Overall breathing status is stable. Continue budesonide and Perforomist, seems twice a day in combination with the [employer] Incentive spirometer Advance diet as tolerated Patient is currently on room air oxygen Pulmonary status is stable Monitor the output from the IVAN drain, the output is minimal at this point in vic e Continue same antibiotic coverage included a combination of Rocephin and Flagyl Cardiology regarding the chronic active fibrillation Anticoagulation with Eliquis has been restarted Ambulate the patient White cell count is improving Clinically improving Discharge planning is in progress
--- NOTE | 2023-03-20 16:41 | P.PN ---
Subjective Progress Note Date: 03/20/23 He reports feeling better today. He is tolerating diet. He reports his just left. IVAN serosanguinous. Discharge tomorrow. Drain removal per index surgeon. Objective - Vital Signs Vital signs: Vital Signs Temp 97.8 F 03/20/23 11:07 Pulse 68 03/20/23 15:45 Resp 18 03/20/23 15:45 BP 134/80 03/20/23 11:07 Pulse Ox 98 03/20/23 11:28 FiO2 Intake & Output 03/19/23 03/20/23 03/20/23 18:59 06:59 18:59 Intake Total 1075 1018 Output Total 15 400 8 Balance 1060 -400 1010 Weight 107.955 kg Intake: Oral 1075 1018 Output: Drainage 15 8 Right Abdomen 15 8 Urine 400 Other: # Voids 2 1 # Bowel Movements 1 1 - Labs CBC & Chem 7: 03/18/23 07:38 03/18/23 07:38
[2023-03-20] MEDS: TAMSULOSIN 0.4 MG CAP.ER.24H PO SCH (17:32)
[2023-03-20] MEDS: MONTELUKAST 10 MG TAB PO SCH (21:01)
[2023-03-21] MEDS: metroNIDAZOLE-NS PMX 500 MG in SALINE 1 100ML.BAG IVPB SCH ×2 (01:00→09:53)
[2023-03-21] MEDS: PANTOPRAZOLE 40 MG TABLET PO SCH (06:28)
[2023-03-21] MEDS: BUDESONIDE 0.5 MG/2 ML NEBU INHALATION SCH (08:04)
[2023-03-21] MEDS: FORMOTEROL FUMARATE 20 MCG/2 ML NEBU INHALATION SCH (08:04)
[2023-03-21] MEDS: IPRATROPIUM-ALBUTEROL 3 ML NEB INHALATION SCH ×2 (08:04→11:38)
[2023-03-21] MEDS: bisacodyL 10 MG SUPP RECTAL SCH (09:47)
[2023-03-21] MEDS: METOPROLOL TARTRATE 50 MG TAB PO SCH (09:53)
[2023-03-21] MEDS: predniSONE 20 MG TAB PO SCH (09:53)
[2023-03-21] MEDS: CHOLECALCIFEROL 10 MCG (400 IU) TABLET PO SCH (09:53)
[2023-03-21] MEDS: ATORVASTATIN 80 MG TAB PO SCH (09:53)
[2023-03-21] MEDS: polyethylene glycoL 3350 17 GM POWD.PACK PO SCH (09:53)
[2023-03-21] MEDS: APIXABAN 5 MG TAB PO SCH (09:53)
--- NOTE | 2023-03-21 11:03 | P.PN ---
Subjective Progress Note Date: 03/21/23 Patient is a 72-year-old male with recently diagnosed A. fib, coronary artery disease status post stenting, Hammond's esophagus, hypertension, dyslipidemia, and multiple other comorbidities conditions were initially presented with abdominal pain. Patient was found to have cholecystitis with sepsis. He was started on ceftriaxone IV Flagyl. We're consulted for medical management. Pat ient then went into A. fib with rapid ventricular response initially requiring a Cardizem drip which was then discontinued and his home metoprolol was restarted. Pulmonary and cardiology are also following. He underwent lap thuy on 03/16 which showed a gangrenous gallbladder. Patient seen and examined at bedside. He denies any abdominal pain. He is having bowel movements and tolerating his diet. He had his IVAN drain removed yesterday. Vital signs reviewed General: nontoxic, no distress, appears at stated age Cardiovascular: S1S2 reg, no murmur, positive posterior tibial pulse bilateral, Lungs: Decreased breath sounds bilateral, no rhonchi, no rales , no accessory muscle use Abdominal: soft, +tender to palpation RUQ, no guarding, no appreciable organomegaly Ext: no gross muscle atrophy, no edema b/l lower extremities, no contractures Neuro: CN II-XI grossly intact, no focal neuro deficits Psych: Alert, oriented, appropriate affect Assessment/plan: Acute [place] cholecystitis with sepsis s/p lap thuy 03/16/23 - recommend a total of 10 days of ABX given ganganerous gallbladder and pyrexia post surgery. Allergic to PCN. Rx written for flagyl and cefpodoxamine for 3 additional days to complete 10 days of therapy. - Medically optimized for discharge at the discretion of general surgery. Atrial fibrillation with rapid ventricular response -Lopressor 25 mg by mouth twice daily -Follow telemetry - Eliquis 5 BID Mild acute exacerbation of asthma Acute hypoxic respiratory failure Interstitial lung disease Mild persistent bronchial asthma -Prednisone 20 mg daily per pulmonary -Continue with DuoNeb 4 times daily scheduled and every 4 as needed Chronic/resolved Hypothyroidism Hyponatremia azotemia, resolved Urinary retention, resolved- started on flomax Imaging: None new for Review Data Review: Vitals reviewed. Patient afebrile for the last 24 hours. Pressures have been relatively stable in the 150s. No new laboratory analysis available. Thank you for allowing us to participate in the care of this pleasant patient. Do not hesitate to contact us with questions. Someone can be reached from the [facility] hospitalist group all hours of the day at [phone] or via perfect serve. This dictation was prepared using [employer] voice recognition software. Though every attempt is made to correct errors during dictation some may still exist. Objective - Vital Signs Vital signs: Vital Signs Temp 97.4 F L 03/21/23 08:00 Pulse 68 03/21/23 08:00 Resp 18 03/21/23 08:00 BP 149/73 03/21/23 08:00 Pulse Ox 97 03/21/23 08:00 FiO2 Intake & Output 03/20/23 03/21/23 03/21/23 18:59 06:59 18:59 Intake Total 1136 200 118 Output Total 8 600 Balance 1128 -400 118 Intake: Oral 1136 200 118 Output: Drainage 8 Right Abdomen 8 Urine 600 Other: Voiding Method Indwelling Catheter Toilet # Voids 1 1 # Bowel Movements 1 - Labs CBC & Chem 7: 03/18/23 07:38 03/18/23 07:38 Labs: Microbiology - Last 24 Hours (Table) 03/15/23 15:26 Blood Culture - Final Blood
--- NOTE | 2023-03-21 11:16 | P.PN ---
Subjective Progress Note Date: 03/21/23 I am seeing this patient in consultation today 03/16/2023 for shortness of breath after presenting with acute cholecystitis back on March 14. Patient is a 72-year-old white male with past medical history is significant for asthma, interstitial lung disease, atrial fibrillation anticoagulated on Eliquis, coronary artery disease with history of stents to the LAD, hyperlipidemia, hypertension, GERD. He does normally follows with Dr. Brown in the office for his mild persistent asthma and interstitial lung disease. Patient came to the emergency room on March 14 complaining of right upper quadrant abdominal pain. He states this has been intermittent for the past year, but worsened on Wednesday. It is exacerbated by greasy food intake. There has also been some associated bilious vomiting. No bowel movement reported since Wednesday. He was febrile on arrival. Both abdominal CT and ultrasound both indicated suspected cholecystitis. Patient was started on a combination of Rocephin and Flagyl. There are plans for definitive cholecystectomy tomorrow. Patient was also found to be in atrial fibrillation with rapid ventricular rate on arrival, and was started on Cardizem infusion. Currently, the patient is bradycardic, and I recommend pausing the patient's Cardizem. Patient is currently sitting up in bed, on 4 L/m nasal cannula, in no acute distress. Chest x-ray from earlier yesterday showed moderate cardiomegaly with prominent interstitial lung markings felt to be chronic. No focal consolidation or evidence of pneumonia. Most recent CBC from yesterday shows a improved WBC count down to 13.7, hemoglobin 16.5, hematocrit 49, platelets 143. BMP from yesterday shows a sodium 135, potassium 4.8, chloride 102, serum bicarb 18, BUN 13, creatinine 0.74, glucose 135. Currently receiving normal saline infusing at 130 ML's per hour. Lactic acid level was not elevated. Patient is currently being monitored on the cardiac stepdown unit. , 03/17/2023, the patient is postop day #1. The patient underwent a laparoscopic on ECMO for an acute gangrenous cholecystitis. The patient is doing well. The patient is on room air oxygen. The patient has no nausea. His tolerating clear liquid diet. IVAN drain is in place. Remains in atrial fibrillation. He did encounter some urinary retention and a Knight catheter was inserted. Blood work from today shows a drop in the delivery was down to 12.2 with hemoglobin 12.7 and a platelet count of 147. BUN is at 20 with a creatinine of 0.6. Sodium is at 136 and potassium levels at 4.1. LFTs are normal. On 03/18/2023, the patient is still recovering from the surgery. The patient is having some increased bronchospasm and wheezing on today's evaluation. The patient is postoperative day #2. The patient underwent a laparoscopic cholec ystectomy. The white cell count is improving and the patient remains on IV Rocephin and Flagyl for now. He is on room air oxygen. No chest pain. IVAN drain is still in place.. The pelvis is on is down to 10.8 with a hemoglobin of 12.5. BUN is at 30 with a creatinine of 0.6. Sodium level is at 134. On 03/19/2023, the patient is less bronchospastic and wheezy. He is on IV Solu- Medrol. He is on room air oxygen. He is on bronchodilators. His postoperative day #3. IVAN drain is in place. Remains on antibiotics. Ambulating. Tolerating diet. The white cell count is down to 10.8, platelet is at 168, BUN is at 50 with a creatinine of 0.6. On 03/20/2023, the patient has no specific complaints. The patient's postop day #4. Output from the IVAN drain is minimal at this point in time and the patient is having no major respiratory difficulties. He responded to inhaled corticosteroids on systemic corticosteroids as the patient was receiving IV Solu-Medrol every 03/21/2023, the patient is doing well. The patient is on room air oxygen. The patient is ambulating. IVAN drain has been removed. No other significant events overnight. The patient is tolerating his diet. No nausea. No vomiting. No diarrhea. No abdominal pain. No chest pain. His overall breathing status is stable for now. The patient went into atrial fibrillation and RVR and the patient was initially treated with a Cardizem drip and this was discontinued and the patient is currently on metoprolol and this was restarted. Anticoagulated she was also restarted. Objective - Vital Signs Vital signs: Vital Signs Temp 97.6 F 03/21/23 04:00 Pulse 69 03/21/23 04:00 Resp 18 08/06/23 04:00 BP 157/80 03/21/23 04:00 Pulse Ox 97 03/21/23 04:00 FiO2 Intake & Output 03/20/23 03/21/23 03/21/23 18:59 06:59 18:59 Intake Total 1136 200 118 Output Total 8 600 Balance 1128 -400 118 Intake: Oral 1136 200 118 Output: Drainage 8 Right Abdomen 8 Urine 600 Other: Voiding Method Indwelling Catheter # Voids 1 1 # Bowel Movements 1 - Exam GENERAL EXAM: Alert, 72-year-old white male appearing stated age, comfortable in no apparent distress. The patient is on room air oxygen HEAD: Normocephalic and atraumatic EYES: Normal reaction of pupils, equal size. NOSE: Clear with pink turbinates. THROAT: No erythema or exudates. NECK: No masses, no JVD. CHEST: No chest wall deformity. LUNGS: Equal air entry with mild expiratory wheezes heard throughout and bibasilar Velcro crackles. The patient is less bronchospastic and wheezing compared to yesterday ABDOMEN: No hepatosplenomegaly, active bowel sounds, the surgical sites are clean and the patient has a IVAN drain in the right upper quadrant with bloody serous drainage. SPINE: No scoliosis or deformity SKIN: No rashes CENTRAL NERVOUS SYSTEM: No focal deficits, tone is normal in all 4 extremities. EXTREMITIES: There is no peripheral edema, clubbing, or cyanosis. Peripheral pulses are intact. - Labs CBC & Chem 7: 03/18/23 07:38 03/18/23 07:38 Labs: Microbiology - Last 24 Hours (Table) 03/15/23 15:26 Blood Culture - Final Blood Assessment and Plan Assessment: Acute cholecystitis, post cholecystectomy and the patient is postoperative day # 5, doing well and the patient has a IVAN drain removed. Chronic bronchial asthma and acute exacerbation of the patient is noted to be increased the bronchospastic and wheezy. Clinically improved on today's evaluation of the patient remains on IV Solu-Medrol and bronchodilators History, the patient has history of moderate intermittent bronchial asthma. Chronic atrial fibrillation with adequate rate control with metoprolol 25 mg by mouth twice a day. No tobacco dependence for now Acute hypoxemic respiratory failure currently on 4 L/m nasal cannula. Possibly related to above and mild asthma exacerbation. Chest x-ray shows moderate cardiomegaly with reportedly normal pulmonary vasculture. There are some chronic interstitial changes. The patient's oxygen is improved and the patient is cur rently on room air oxygen. Leukocytosis, improving Interstitial lung disease, stable Mild persistent bronchial asthma, stable Coronary artery disease, with prior stents to the LAD 2 Essential hypertension Hyperlipidemia GERD Obesity with a BMI of 34 kg/m Plan: Complete the prednisone burst taper 20 mg for 3 days and 10 mg for 3 days and then stop Overall breathing status is stable. Continue budesonide and Perforomist, seems twice a day in combination with the [employer] [facility] Incentive spirometer Advance diet as tolerated Patient is currently on room air oxygen Pulmonary status is stable IVAN drain has been removed Continue same antibiotic coverage included a combination of Rocephin and Flagyl, can be switched to oral antibiotics time of discharge Cardiology regarding the chronic active fibrillation Anticoagulation with Eliquis has been restarted Ambulate the patient White cell count is improving Clinically improving Discharge planning is in progress
[2023-03-21 11:40] VITALS: BP 145/71; PULSE 62; RESP 16; TEMP 97.7
--- NOTE | 2023-03-21 11:51 | P.PN ---
Subjective Progress Note Date: 03/21/23 History of present illness: This is a 72-year-old male patient of Dr. Vazquez with past medical history of co ronary artery disease with stenting of the LAD, carotid atherosclerosis, hypertension, dyslipidemia, COPD. Patient states that last week he was having some chest pain on Wednesday presented to [facility] was found to be in atrial fibrillation started on eliquis and Lopressor. He states that he has had ongoing problems or abdominal pain in the right upper quadrant that sometimes radiates to his chest. He presented for this reason found to be febrile, started on antibiotics and treated for acute cholecystitis with plan for surgical intervention with Dr. Hopson. This was scheduled for a yesterday however patient had A. fib with RVR up to 120s ventricular rate. He was started on Cardizem drip at 10 mg per hour which has been subsequently discontinued due to bradycardia. Telemetry reveals A. fib running in the 50s and 60s. EKG atrial fibrillation 108, atrial fibrillation 122 bpm Chest x-ray: moderate cardiomegaly WBC 16.9, hemoglobin 13.6, platelet count 154. BUN 22, creatinine 1.02, potassium 4.2. Liver function tests normal. ProBNP 819 Home cardiac medications: Eliquis 5 mg twice daily, aspirin 81 mg at bedtime, lisinopril 10 mg at bedtime, Lopressor 25 mg twice daily, Crestor 40 mg daily Cardiac catheterization 2018 revealed intermediate to severe disease involving the distal LAD status post stent. Echocardiogram 11/2018 normal EF, mild MR, mild TR MPI 2020 normal EF normal study 03/17 Yesterday, patient underwent laparoscopic cholecystectomy with Dr. Hopson. P atient states that his abdominal pain is significantly improved. He denies having any chest pain, no shortness of breath and no palpitations. Blood pressures 128/71, heart rate in the 80s. Telemetry is atrial fibrillation. Patient has required Knight catheter placement for urinary retention. 03/18 Diet has been advanced to low-fat per general surgery. Eliquis remains on hold per general surgery. His heart rate is in the 90s to low 100s, blood pressure 139/82, pulse ox 96% on room air. No new complaints on the patient. 03/19 Patient states that the abdominal pain is much less but he still can feel it there. Eliquis was resumed last evening as it was cleared by general surgery. He is reaching 2500 ML's on incentive spirometry. Heart rate is in the 80s and patient remains in atrial fibrillation, blood pressure 146/76. 03/21 Patient denies any new concerns today. He remains in atrial fibrillation rate controlled. Blood pressure is stable. He states his abdominal pain is improved. He's been on IV antibiotics and states that he is going home today. Physical examination: Gen: This is a a 72-year-old male. He is resting in bed and appears to be comfortable and in no acute distress VS: reviewed HEENT: Head is atraumatic, normocephalic. Pupils equal, round. Sclerae is anicteric. NECK: Supple. No JVD. LUNGS: Clear to auscultation. No wheezes or rhonchi. No intercostal retractions. HEART: Irregular rate and rhythm. No murmur. EXTREMITIES: No pedal edema. No calf tenderness. NEUROLOGICAL: Patient is awake, alert and oriented x3. Assessment Acute cholecystitis status post laparoscopic cholecystectomy 03/16 Permanent atrial fibrillation with RVR, currently rate controlled Hypertension Hyperlipidemia Coronary artery disease with previous PCI of the LAD Plan Continue patient's home cardiac medications but increase Lopressor to 50 mg twice daily Continue home cardiac medications including eliquis Patient will follow up with Dr. Vazquez at the time of discharge. Nurse practitioner note has been reviewed, I agree with documented findings and plan of care. Patient was seen and examined. Objective - Vital Signs Vital signs: Vital Signs Temp 97.6 F 03/21/23 04:00 Pulse 69 03/21/23 04:00 Resp 18 03/21/23 04:00 BP 157/80 03/21/23 04:00 Pulse Ox 97 03/21/23 04:00 FiO2 Intake & Output 03/20/23 03/21/23 03/21/23 18:59 06:59 18:59 Intake Total 1136 200 118 Output Total 8 600 Balance 1128 -400 118 Intake: Oral 1136 200 118 Output: Drainage 8 Right Abdomen 8 Urine 600 Other: Voiding Method Indwelling Catheter # Voids 1 1 # Bowel Movements 1 - Labs CBC & Chem 7: 03/18/23 07:38 03/18/23 07:38 Labs: Microbiology - Last 24 Hours (Table) 03/15/23 15:26 Blood Culture - Final Blood
--- NOTE | 2023-03-27 10:06 | P.DS ---
Providers Date of admission: 03/14/23 19:44 Expected date of discharge: 03/21/23 Attending physician: Serafin Hopson Consults: 03/14/23 19:43 Consult Physician Routine Consulting Provider: Damien Farley Consult Reason/Comments: medicine consult Do you want consulting provider notified?: Yes 03/15/23 15:33 Consult Physician Routine Consulting Provider: Riccardo Brown Consult Reason/Comments: shortness of breath Do you want consulting provider notified?: Yes Consult Physician Routine Consulting Provider: Santhosh Sanches Consult Reason/Comments: afib RVR Do you want consulting provider notified?: Yes Primary care physician: Riccardo Brown Hospital Course: DISCHARGE DIAGNOSES: 1. Acute cholecystitis 2. Hypertensive heart disease 3. Obesity due to excess calories, BMI 34.1 4. Hyperlipidemia 5. Chronic anticoagulant use 6. Chronic obstructive pulmonary disease 7. Atrial fibrillation 8. Gastroesophageal reflux disease 9. Interstitial pulmonary disease The patient is a 72-year-old gentleman who was medically for acute cholecystitis. He underwent laparoscopic cholecystectomy with features of gangrenous cholecystitis. He had a IVAN drain. Multiple consultants were following due to his comorbidities. Prior to discharge, he was tolerating diet. He was clinically stable for discharge. IVAN drain was discontinued prior to discharge. Procedures: Date of Procedure: 03/16/23 Procedure(s) Performed: PREOPERATIVE DIAGNOSIS: Acute cholecystitis POSTOPERATIVE DIAGNOSIS: Acute gangrenous cholecystitis PROCEDURE: Laparoscopic cholecystectomy SURGEON: Emiliana Patient Condition at Discharge: Fair Plan - Discharge Summary Discharge Rx Participant: No New Discharge Prescriptions: New metroNIDAZOLE [Flagyl] 500 mg PO TID #9 tab Metoprolol Tartrate [Lopressor] 50 mg PO BID #60 tab Budesonide/Formoterol Fumarate [Budesonide-Formoterol 80-4.5] 1 puff PO Q6HR PRN #10.2 gm PRN Reason: Shortness Of Breath Or Wheezing Cefpodoxime Proxetil [Vantin] 200 mg PO Q12HR #6 tab predniSONE [Deltasone] 20 mg PO DAILY #3 tab Tamsulosin [Flomax] 0.4 mg PO PC-SUPPER #30 cap Continue Montelukast [Singulair] 10 mg PO HS lisinopriL [Zestril] 10 mg PO HS Omeprazole [PriLOSEC] 20 mg PO AC-BRKFST Rosuvastatin Calcium [Crestor] 40 mg PO DAILY Albuterol Inhaler [Ventolin Hfa Inhaler] 2 puff INHALATION RT-Q4H PRN PRN Reason: Shortness Of Breath Apixaban [Eliquis] 5 mg PO BID Aspirin EC [Ecotrin Low Dose] 81 mg PO HS Cholecalciferol [Vitamin D3 (10 Mcg = 400 Iu)] 10 mcg PO DAILY Carboxymethylcellulose Sodium 1 drop BOTH EYES BID PRN PRN Reason: eye itching Discontinued Metoprolol Tartrate [Lopressor] 25 mg PO BID Discharge Medication List Montelukast [Singulair] 10 mg PO HS 06/20/14 [History] Omeprazole [PriLOSEC] 20 mg PO AC-BRKFST 06/20/14 [History] lisinopriL [Zestril] 10 mg PO HS 06/20/14 [History] Rosuvastatin Calcium [Crestor] 40 mg PO DAILY 11/16/18 [History] Albuterol Inhaler [Ventolin Hfa Inhaler] 2 puff INHALATION RT-Q4H PRN 07/16/21 [History] Apixaban [Eliquis] 5 mg PO BID 03/14/23 [History] Aspirin EC [Ecotrin Low Dose] 81 mg PO HS 03/14/23 [History] Carboxymethylcellulose Sodium 1 drop BOTH EYES BID PRN 03/14/23 [History] Cholecalciferol [Vitamin D3 (10 Mcg = 400 Iu)] 10 mcg PO DAILY 03/14/23 [History] Budesonide/Formoterol Fumarate [Budesonide-Formoterol 80-4.5] 1 puff PO Q6HR PRN #10.2 gm 03/20/23 [Rx] Cefpodoxime Proxetil [Vantin] 200 mg PO Q12HR #6 tab 03/21/23 [Rx] Metoprolol Tartrate [Lopressor] 50 mg PO BID #60 tab 03/21/23 [Rx] Tamsulosin [Flomax] 0.4 mg PO PC-SUPPER #30 cap 03/21/23 [Rx] metroNIDAZOLE [Flagyl] 500 mg PO TID #9 tab 03/21/23 [Rx] predniSONE [Deltasone] 20 mg PO DAILY #3 tab 03/21/23 [Rx] Follow up Appointment(s)/Referral(s): Serafin Hopson MD [Medical Doctor] - 2 Weeks (call and make follow up) Riccardo Brown MD [Primary Care Provider] - 1-2 days (call and make follow up ) Anson Vazquez MD [STAFF PHYSICIAN] - 1 Week (has appointment scheduled) Patient Instructions/Handouts: A-fib (Atrial Fibrillation) (DC), Low Fat Diet (DC), Laparoscopic Cholecystectomy (GEN) Discharge Disposition: HOME SELF-CARE
== END 2023-03-21 13:05 | disposition home or self-care (01) | DRG 853 ==
LOC: EC 15:09 → 4SSUR 19:44 → 3SCARD 03-15 14:37
PROVIDERS: ADMIT Surgery; ATTEND Surgery
PROC: 0FT44ZZ Resection of Gallbladder, Percutaneous Endoscopic Approach (ICD-10-PCS; principal; 2023-03-16 07:30)
DX: A41.9 Sepsis, unspecified organism (principal); J96.01 Acute respiratory failure with hypoxia; K81.2 Acute cholecystitis with chronic cholecystitis; I48.21 Permanent atrial fibrillation; J45.31 Mild persistent asthma with (acute) exacerbation; E87.1 Hypo-osmolality and hyponatremia; J84.9 Interstitial pulmonary disease, unspecified; N39.0 Urinary tract infection, site not specified; K82.A1 Gangrene of gallbladder in cholecystitis; I11.9 Hypertensive heart disease without heart failure; I65.29 Occlusion and stenosis of unspecified carotid artery; J44.9 Chronic obstructive pulmonary disease, unspecified; E03.9 Hypothyroidism, unspecified; E66.09 Other obesity due to excess calories; E78.5 Hyperlipidemia, unspecified; I25.10 Atherosclerotic heart disease of native coronary artery without angina pectoris; K57.30 Diverticulosis of large intestine without perforation or abscess without bleeding; R00.0 Tachycardia, unspecified; K21.9 Gastro-esophageal reflux disease without esophagitis; K22.70 Barrett's esophagus without dysplasia; I49.3 Ventricular premature depolarization; K82.8 Other specified diseases of gallbladder; M19.90 Unspecified osteoarthritis, unspecified site; Z68.34 Body mass index [BMI] 34.0-34.9, adult; Z95.5 Presence of coronary angioplasty implant and graft; Z87.19 Personal history of other diseases of the digestive system; Z87.891 Personal history of nicotine dependence; Z79.899 Other long term (current) drug therapy; Z79.01 Long term (current) use of anticoagulants; Z79.82 Long term (current) use of aspirin; Z88.0 Allergy status to penicillin; Z91.013 Allergy to seafood; Z88.8 Allergy status to other drugs, medicaments and biological substances
CPT/HCPCS: 36415; 71045; 74177; 76705; 80048; 80053; 82803; 83605; 83880; 85025; 85027; 85610; 85730; 87040; 88304; 93005; 94640; 94760; 96361; 96365; 99285

== ENCOUNTER 2023-09-08 07:13 | Day surgery (SDC) | payer OTHER ==
[2023-09-02 10:30] VITALS: BMI 33.0
[~2023-09-08 07:13] MED LIST changes: +CLINDAMYCIN 900 MG in DEXTROSE 5% IN WATER 50 ML IVPB ONE; -LACTATED RINGERS 1,000 ML IV SCH; -LIDOCAINE 1% (10MG/ML) FOR IV START INTRADERMA PRN; +SODIUM CHLORIDE 0.9% 1,000 ML in EMPTY BAG 1 BAG IV ONE
[2023-09-08] MEDS ORDERED: methylPREDNISolone SOD SUCCI 125 MG/2 ML VIAL IV ONE (07:31)
[2023-09-08] MEDS ORDERED: diphenhydrAMINE 50 MG/ML 1 ML VIAL IVP ONE (07:31)
[2023-09-08] MEDS ORDERED: FAMOTIDINE 20 MG/2 ML VIAL IV ONE (07:31)
[2023-09-08] MEDS ORDERED: ASPIRIN 81 MG ONE ×2 (07:37→07:39)
[2023-09-08 07:45] LABS: Basophils # (A) 0.1 k/uL (0-0.2); Basophils % (A) 1 %; Eosinophils # (A) 0.4 k/uL (0-0.7); Eosinophils % (A) 3 %; HCT 48.2 % (39.0-53.0); HGB 16.6 gm/dL (13.0-17.5); Lymphocytes # (A) 3.1 k/uL (1.0-4.8); Lymphocytes % (A) 25 %; MCH 31.5 pg (25.0-35.0); MCHC 34.4 g/dL (31.0-37.0); MCV 91.6 fL (80.0-100.0); Mean Platelet Volume 8.6; Monocytes # (A) 0.9 k/uL (0-1.0); Monocytes % (A) 7 %; Neutrophils # (A) 7.5 k/uL (1.3-7.7); Neutrophils % (A) 61 %; Platelet Count 186 k/uL (150-450); RBC 5.26 m/uL (4.30-5.90); RDW 13.3 % (11.5-15.5); WBC 12.2 k/uL (3.8-10.6)
[2023-09-08 08:02] LABS: African American GFR (CKD) >90 (>60 ml/min/1.73 sqM); Anion Gap 7 mmol/L; Blood Urea Nitrogen 23 mg/dL (9-20); Calcium 9.3 mg/dL (8.4-10.2); Carbon Dioxide 25 mmol/L (22-30); Chloride 108 mmol/L (98-107); Glucose 127 mg/dL (74-99); Non-African American GFR(CKD) 89 (>60 ml/min/1.73 sqM); Potassium 4.5 mmol/L (3.5-5.1); Sodium 140 mmol/L (137-145)
[2023-09-08] MEDS ORDERED: LIDOCAINE 1% INJ 10MG/ML (20 ML MDV) ONE (09:57)
[2023-09-08] MEDS ORDERED: HEPARIN SODIUM 1,000 UN/ML (10ML VL) ONE (10:10)
[2023-09-08] MEDS ORDERED: fentaNYL (PF) 50 MCG/ML 2 ML AMP ONE (10:17)
[2023-09-08] MEDS ORDERED: LIDOCAINE 1% INJ 10MG/ML (20 ML MDV) SQ ONE (10:18)
[2023-09-08] MEDS ORDERED: MIDAZOLAM 2 MG/2 ML VIAL IVP ONE ×2 (10:18→10:22)
[2023-09-08] MEDS: fentaNYL (PF) 50 MCG/ML 2 ML AMP IVP ONE ×2 (10:18→10:22)
[2023-09-08] MEDS ORDERED: HEPARIN SODIUM 1,000 UN/ML (10ML VL) IV ONE (10:30)
[2023-09-08] MEDS ORDERED: FLUMAZENIL 0.1 MG/ML 5 ML VIAL IVP ONE (10:30)
[2023-09-08] MEDS: FLUMAZENIL 0.1 MG/ML 5 ML VIAL IVP ONE ×2 (10:34→10:47)
[2023-09-08] MEDS ORDERED: CLOPIDOGREL 75 MG TAB ONE (11:01)
[2023-09-08] MEDS ORDERED: CLOPIDOGREL 75 MG TAB PO ONE (11:04)
[2023-09-08] MEDS ORDERED: IOPAMIDOL-370 100ML BTL INJ ONE (11:05)
[2023-09-08] MEDS ORDERED: ALBUTEROL NEBULIZED 2.5 MG/3 ML INHALATION PRN (11:09)
[2023-09-08] MEDS ORDERED: ARTIFICIAL TEARS-HYPROMELLOSE DROPS 15 ML BTL BOTH EYES PRN (11:09)
[2023-09-08] MEDS ORDERED: SODIUM CHLORIDE 0.9% 1,000 ML IV SCH (11:15)
--- NOTE | 2023-09-08 11:39 | P.PCN ---
Date of Procedure: 09/08/23 Operative Findings: PERCUTANEOUS CLOSURE OF ATRIAL SEPTAL DEFECT PERFORMING PHYSICIAN: Anson Vazquez MD, [facility] PROCEDURE PERFORMED: 1. Successful percutaneous closure of ASD using 25 mm Cardioform device with an excellent results and no residual shunt 2. Intracardiac echocardiogram imaging. 3. Right atrial angiogram. 4. Ultrasound-guided access of the right common femoral vein 2 INDICATION: Atrial septal defect with [id number] shunt APPROACH: Right common femoral vein 2 COMPLICATION: None. LEVEL OF SEDATION: Moderate with sedation length of 45 minutes. PROCEDURE DESCRIPTION: After obtaining informed consent, the patient was brought to the cardiac field laboratory operator. The right common femoral vein was cannulated x2 using micropuncture technique under ultrasound guidance, the micropuncture wire passed easily, then I placed two 8-Nigerian sheath in the right groin. Subsequently I cannulated the left common femoral vein with the same technique and I placed an 14-Nigerian sheath there as well. The 14-Nigerian was 35 cm length At that point, anticoagulation was initiated using heparin and the patient was given a bolus of 5,000 units of heparin IV with continuous ACT monitoring throughout the procedure. After that, the intracardiac echocardiogram probe was advanced through one of the venous sheath all the way to the right atrium where we did interrogate the interatrial septum and identified the patent foramen ovale which was measured about 35 mm. Subsequently, I did cross the defect using 0.035 J-wire with the backup support of multipurpose catheter. The wire was advanced all the way to the left upper pulmonary vein and subsequently the catheter was advanced over the wire to the left upper pulmonary vein. The 0.035 J-wire was pulled out and then I advanced a christina wire. Subsequently, the multipurpose catheter was withdrawn out and the wire was left in the left upper pulmonary vein. After that, I did prep the Cardioform device under saline. The device subsequently was advanced over 035 wire and under continuous saline when it was going through the sheath all the way to the right atrium and subsequently the left atrium all of that under fluoroscopy guidance and under intracardiac echocardiogram imaging continuously. After that the left atrial occluder was deployed and subsequently the whole device was pulled toward the interatrial septum. Then the right atrial occluder was deployed. After that we did interrogation using intracardiac echocardiogram imaging and that showed stable device was no pinching on the SVC and no residual shunt. At that point the device was released. Also imaging performed after the device was released and showed that the device was extremely stable with no residual shunt. No pericardial effusion identified. The patient tolerated the procedure very well The procedure was completed without any complication. POSTPROCEDURE MANAGEMENT: 1. Dual anti-platelet therapy. 2. An echo in 24 hours, in 1 week, in 4 weeks, as well as in 6 months.
[2023-09-08 13:32] LABS: Glucose,Whole Blood 219 mg/dL (70-110)
[2023-09-08] MEDS ORDERED: TAMSULOSIN 0.4 MG CAP.ER.24H PO SCH (18:30)
[2023-09-08] MEDS ORDERED: MONTELUKAST 10 MG TAB PO SCH (21:00)
[2023-09-08] MEDS ORDERED: lisinopriL 10 MG TAB PO SCH (21:00)
[2023-09-08] MEDS ORDERED: ASPIRIN 81 MG PO SCH (21:00)
[2023-09-08] MEDS: METOPROLOL TARTRATE 25 MG TAB PO SCH (21:07)
[2023-09-09 04:42] VITALS: RESP 16
[2023-09-09] MEDS ORDERED: PANTOPRAZOLE 40 MG TABLET PO SCH (07:30)
--- NOTE | 2023-09-09 08:25 | XR ---
EXAMINATION TYPE: XR chest 2V DATE OF EXAM: 09/09/2023 6:15 AM CLINICAL INDICATION:Male, 72 years old with history of ASD/PFO placement; [facility] COMPARISON: 03/15/2023 TECHNIQUE: XR chest 2V Frontal and lateral views of the chest. FINDINGS: Lungs/Pleura: Prominent interstitial lung markings are seen scattered throughout the lungs. No eviden ce of focal consolidation, pneumothorax or pleural effusion. Pulmonary vascularity: Unremarkable. Heart/mediastinum: Cardiomediastinal silhouette is unremarkable. Atrial septal occlusion device is pr esent and appears in appropriate position. Musculoskeletal: No acute osseous pathology. IMPRESSION: Septal occlusion device appears in appropriate position, chronic interstitial lung changes.
[2023-09-09] MEDS: METOPROLOL TARTRATE 25 MG TAB PO SCH (08:43)
[2023-09-09] MEDS ORDERED: MULTIVITAMINS, THERA 1 EACH TAB PO SCH (09:00)
[2023-09-09] MEDS ORDERED: ATORVASTATIN 80 MG TAB PO SCH (09:00)
[2023-09-09] MEDS ORDERED: CHOLECALCIFEROL 10 MCG (400 IU) TABLET PO SCH (09:00)
[2023-09-09] MEDS ORDERED: CLOPIDOGREL 75 MG TAB PO SCH (09:00)
[2023-09-09] MEDS ORDERED: ASPIRIN 325 MG TAB PO SCH (09:00)
--- NOTE | 2023-09-09 11:59 | P.DS ---
Providers Attending physician: Anson Vazquez Primary care physician: [facility] Course: The patient is a pleasant 72-year-old gentleman who underwent yesterday successful percutaneous closure of atrial septal defect with an excellent results The patient was seen and evaluated at this morning. He is asymptomatic and he is hemodynamically stable. The right groin is soft and nontender was no bruises. The examination overall is unremarkable The patient is going to be discharged home on aspirin and Plavix and low-dose all across a 2.5 mg by mouth twice a day. He will be seen in the office. The echo was reviewed and showed no evidence of pericardial effusion with a stable and her atrial occluder device Plan - Discharge Summary Discharge Rx Participant: Yes New Discharge Prescriptions: New Apixaban [Eliquis] 2.5 mg PO BID #180 tab Clopidogrel [Plavix] 75 mg PO DAILY #90 tablet Continue Montelukast [Singulair] 10 mg PO HS lisinopriL [Zestril] 10 mg PO HS Omeprazole [PriLOSEC] 20 mg PO DAILY Rosuvastatin Calcium [Crestor] 40 mg PO QAM Albuterol Inhaler [Ventolin Hfa Inhaler] 2 puff INHALATION Q4H PRN PRN Reason: Shortness Of Breath Aspirin EC [Ecotrin Low Dose] 81 mg PO HS Metoprolol Tartrate [Lopressor] 25 mg PO BID Cholecalciferol [Vitamin D3 (10 Mcg = 400 Iu)] 10 mcg PO DAILY Carboxymethylcellulose Sodium 1 drop BOTH EYES BID PRN PRN Reason: eye itching Tamsulosin [Flomax] 0.4 mg PO PC-SUPPER #30 cap Multivitamins, Thera [Multivitamin (formulary)] 1 tab PO DAILY Discontinued Apixaban [Eliquis] 5 mg PO BID Discharge Medication List Montelukast [Singulair] 10 mg PO HS 06/20/14 [History] Omeprazole [PriLOSEC] 20 mg PO DAILY 06/20/14 [History] lisinopriL [Zestril] 10 mg PO HS 06/20/14 [History] Rosuvastatin Calcium [Crestor] 40 mg PO QAM 11/16/18 [History] Albuterol Inhaler [Ventolin Hfa Inhaler] 2 puff INHALATION Q4H PRN 07/16/21 [History] Aspirin EC [Ecotrin Low Dose] 81 mg PO HS 03/14/23 [History] Carboxymethylcellulose Sodium 1 drop BOTH EYES BID PRN 03/14/23 [History] Cholecalciferol [Vitamin D3 (10 Mcg = 400 Iu)] 10 mcg PO DAILY 03/14/23 [History] Tamsulosin [Flomax] 0.4 mg PO PC-SUPPER #30 cap 03/21/23 [Rx] Metoprolol Tartrate [Lopressor] 25 mg PO BID 05/11/23 [History] Multivitamins, Thera [Multivitamin (formulary)] 1 tab PO DAILY 05/11/23 [His tory] Apixaban [Eliquis] 2.5 mg PO BID #180 tab 09/09/23 [Rx] Clopidogrel [Plavix] 75 mg PO DAILY #90 tablet 09/09/23 [Rx] Follow up Appointment(s)/Referral(s): Anson Vazquez MD [STAFF PHYSICIAN] - 1 Week
--- NOTE | 2023-09-09 12:02 | CA ---
Transthoracic Echo Report Name: Andrew Velazquez Age: 72 Gender: M : 1950 Exam Date: 09/09/2023 08:02 Exam Location: [place] [facility] Ht (in): 70 Wt (lb): 241 Ordering Physician: Anson Vazquez MD ([id number]) Attending/Referring Phys: [employer] Metal Sprayer Naida Ames [facility] Procedure CPT: Indications: Post ASD/PFO Insertion Cardiac Hx: Technical Quality: Fair Contrast 1: Total Dose (mL): Contrast 2: Total Dose (mL): MEASUREMENTS (Male / Female) Normal Values 2D ECHO LV Diastolic Diameter PLAX 5.3 cm 4.2 - 5.9 / 3.9 - 5.3 cm LV Systolic Diameter PLAX 3.2 cm IVS Diastolic Thickness 0.9 cm 0.6 - 1.0 / 0.6 - 0.9 cm LVPW Diastolic Thickness 0.9 cm 0.6 - 1.0 / 0.6 - 0.9 cm LV Relative Wall Thickness 0.3 LVOT Diameter 2.1 cm Ascending Aorta Diameter 3.6 cm M-MODE Aortic Root Diameter MM 3.5 cm LA Systolic Diameter MM 6.6 cm LA Ao Ratio MM 1.9 AV Cusp Separation MM 2.1 cm DOPPLER AV Peak Velocity 177.7 cm/s AV Peak Gradient 12.6 mmHg AV Mean Velocity 119.3 cm/s AV Mean Gradient 6.4 mmHg AV Velocity Time Integral 36.9 cm AI Peak Velocity 377.0 cm/s AI Peak Gradient 56.8 mmHg AI Pressure Half Time 835.6 ms LVOT Peak Velocity 96.5 cm/s LVOT Peak Gradient 3.7 mmHg LVOT Velocity Time Integral 22.3 cm LVOT Stroke Volume 77.1 cm??? LVOT Stroke Volume Index 34.1 ml/m??? LVOT Cardiac Index 1861.5 cm???/min???m??? AV Area Cont Eq vti 2.1 cm??? AV Area Cont Eq pk 1.9 cm??? MR Peak Velocity 460.4 cm/s MR Peak Gradient 84.8 mmHg Mitral E Point Velocity 114.2 cm/s MV Deceleration Time 207.0 ms LV E' Lateral Velocity 11.1 cm/s Mitral E to LV E' Lateral Ratio 10.3 LV E' Septal Velocity 7.1 cm/s Mitral E to LV E' Septal Ratio 16.2 TR Peak Velocity 295.2 cm/s TR Peak Gradient 34.8 mmHg Right Atrial Pressure 8.0 mmHg Pulmonary Artery Systolic Pressu 42.8 mmHg Right Ventricular Systolic Press 42.8 mmHg FINDINGS Left Ventricle Left ventricular wall thickness normal. Left ventricular cavity size normal. Normal left ventricular systolic function with no obvious regional wall motion abnormalities. Left ventricular ejection fraction is estimated at 55-60%. Right Ventricle Severe right ventricular dilatation. Right Atrium Severe right atrial dilatation. Left Atrium Severe left atrial dilatation. ASD/PFO closure device noted and appears in place. Mitral Valve Mitral valve thickened. Mitral annular calcification. Moderate mitral regurgitation. Aortic Valve Trileaflet aortic valve. Aortic valve sclerosis. Mild aortic regurgitation. Tricuspid Valve Structurally normal tricuspid valve. Moderate tricuspid regurgitation. Pulmonic Valve Pulmonic valve not well visualized. Trace pulmonic regurgitation. Pericardium Minimal pericardial effusion (normal variant). Aorta Normal size aortic root and proximal ascending aorta. CONCLUSIONS Normal LV systolic function AST closure device in place appears to be stable Previewed by: Dr. Anson Vazquez MD (Electronically Signed) Final Date: 09 September 2023 12:01
[2023-09-09 12:36] VITALS: BP 122/77; PULSE 69; TEMP 97.4
== END 2023-09-09 13:52 | disposition home or self-care (01) ==
LOC: CATHCVL 07:13 → 3SCARD 12:56 → CATHCVL 09-09 13:52
PROVIDERS: ATTEND Internal Medicine Interventional Cardiology
DX: Q21.10 Atrial septal defect, unspecified (principal); I10 Essential (primary) hypertension; E78.5 Hyperlipidemia, unspecified; F17.210 Nicotine dependence, cigarettes, uncomplicated; Z79.899 Other long term (current) drug therapy; Z79.82 Long term (current) use of aspirin
CPT/HCPCS: 93306; 86900; 86901; 80048; 85025; 86850; 71046; C1769 ×3; C1894 ×2; C1759; J2250; J1200; J2930; J2001; J3010; J3490; J1644; Q9967; J0736

== ENCOUNTER 2023-11-19 05:47 | Emergency (ER) | payer OTHER ==
[2023-11-19 06:11] LABS: Glucose,Whole Blood 152 mg/dL (70-110)
[2023-11-19] MEDS: ONDANSETRON 4 MG/2 ML VIAL IVP STA (06:30)
[2023-11-19] MEDS: SODIUM CHLORIDE 0.9% 1,000 ML IV STA ×2 (06:30→13:18)
[2023-11-19] MEDS: MORPHINE SULFATE 4 MG/ML SYRINGE IVP STA (06:30)
--- NOTE | 2023-11-19 06:30 | ED ---
Abdominal Pain HPI - General Chief Complaint: Abdominal Pain Stated Complaint: abd pain NV Time Seen by Provider: 11/19/23 06:02 Source: patient, RN notes reviewed Mode of arrival: ambulatory Limitations: no limitations - History of Present Illness Initial Comments: This is a 72-year-old male who presents to the emergency department for abdominal pain. States that this is in the mid to upper abdomen. Symptoms started 2 days ago, but became much worse last night. States that he spiked a temperature of 101.7 F last evening and took Tylenol. He has nausea but is unable to vomit. On arrival, nursing staff noted him to appear diaphoretic and he was put on a nasal cannula. Patient denies any chest pain, but did experience some shortness of breath. Denies any changes in bowel/bladder habits. The only time he had similar pain was when he had his gallbladder out in March of last year. MD Complaint: abdominal pain - Related Data Home Medications Medication Instructions Recorded Confirmed Montelukast [Singulair] 10 mg PO HS 06/20/14 11/19/23 Omeprazole [PriLOSEC] 20 mg PO DAILY 06/20/14 11/19/23 lisinopriL [Zestril] 10 mg PO HS 06/20/14 11/19/23 Rosuvastatin Calcium [Crestor] 40 mg PO DAILY 11/16/18 11/19/23 Albuterol Inhaler [Ventolin Hfa 2 puff INHALATION RT-Q4H PRN 07/16/21 11/19/23 Inhaler] Aspirin EC [Ecotrin Low Dose] 81 mg PO HS 03/14/23 11/19/23 Carboxymethylcellulose Sodium 1 drop BOTH EYES BID PRN 03/14/23 11/19/23 Cholecalciferol [Vitamin D3 (10 10 mcg PO DAILY 03/14/23 11/19/23 Mcg = 400 Iu)] Metoprolol Tartrate [Lopressor] 25 mg PO BID 05/11/23 11/19/23 Multivitamins, Thera [Multivitamin 1 tab PO DAILY 05/11/23 11/19/23 (formulary)] Previous Rx's Medication Instructions Recorded Tamsulosin [Flomax] 0.4 mg PO PC-SUPPER #30 cap 03/21/23 Apixaban [Eliquis] 2.5 mg PO BID #180 tab 09/09/23 Clopidogrel [Plavix] 75 mg PO DAILY #90 tablet 09/09/23 Allergies Allergy/AdvReac Type Severity Reaction Status Date / Time Penicillins Allergy Rash/Hives Verified 11/19/23 09:29 shellfish derived [Shellfish] Allergy Anaphylaxis Verified 11/19/23 09:29 vitamin B Allergy Rash/Hives Uncoded 11/19/23 09:29 Review of Systems ROS Statement: Those systems with pertinent positive or pertinent negative responses have been documented in the HPI. ROS Other: All systems not noted in ROS Statement are negative. Past Medical History Past Medical History: Atrial Fibrillation, Asthma, Chest Pain / Angina, GERD/Reflux, Hyperlipidemia, Hypertension, Osteoarthritis (OA), Respiratory Disorder Additional Past Medical History / Comment(s): Hx Hammnod's esophagus, hx colon polyps, prediabetic, varicose veins, INTERSTITIAL PULMONARY DISEASE, afib diagnosed March 2023, closed head injury 1966 History of Any Multi-Drug Resistant Organisms: None Reported Past Surgical History: Cholecystectomy, Heart Catheterization With Stent, Hernia Repair Additional Past Surgical History / Comment(s): Chest wound repair-1966, bilateral cataracts removed, 3 cardiac stents, bilateral inguinal hernia repairs, COLONOSCOPY/EGD, LORENZA, cardioversion, PFO repair 09/08/23. Past Anesthesia/Blood Transfusion Reactions: Motion Sickness, Postoperative N ausea & Vomiting (PONV) Additional Past Anesthesia/Blood Transfusion Reaction / Comment(s): No blood transfusion hx Date of Last Stent Placement:: 2018 Past Psychological History: No Psychological Hx Reported Smoking Status: Current every day smoker Past Alcohol Use History: Daily Past Drug Use History: None Reported - Past Family History Sister(s) Family Medical History: Cancer Father Family Medical History: Cancer Brother(s) Family Medical History: Cancer Additional Family Medical History / Comment(s): 2 brothers had cancer. General Exam Limitations: no limitations General appearance: alert, in distress Head exam: Present: atraumatic, normocephalic, normal inspection Respiratory exam: Present: normal lung sounds bilaterally. Absent: respiratory distress, wheezes, rales, rhonchi, stridor Cardiovascular Exam: Present: regular rate, normal rhythm, normal heart sounds. Absent: systolic murmur, diastolic murmur, rubs, gallop, clicks GI/Abdominal exam: Present: soft, tenderness (Mid to upper abdomen), normal bowel sounds. Absent: distended Neurological exam: Present: alert, oriented X3, CN II-XII intact Psychiatric exam: Present: normal affect, normal mood Skin exam: Present: warm, dry, intact, normal color. Absent: rash Course Vital Signs 11/19/23 11/19/23 11/19/23 05:53 06:34 07:48 Temperature 97.3 F L Pulse Rate 95 100 94 Respiratory 28 H 22 22 Rate Blood Pressure 116/79 131/89 117/79 O2 Sat by Pulse 93 L 98 96 Oximetry 11/19/23 11/19/23 11/19/23 09:21 10:00 11:04 Temperature Pulse Rate 101 H 98 82 Respiratory 20 26 H 18 Rate Blood Pressure 104/56 91/63 91/56 O2 Sat by Pulse 95 96 95 Oximetry 11/19/23 11/19/23 11/19/23 12:09 12:16 13:54 Temperature 98.5 F Pulse Rate 109 H 96 102 H Respiratory 18 Rate Blood Pressure 100/45 O2 Sat by Pulse 97 Oximetry Medical Decision Making - Medical Decision Making This is a 72 year old male who presents to the emergency department for abdominal pain. Was pt. sent in by a medical professional or institution? @ -No Did you speak to anyone other than the patient for history? @ -No Did you review nursing and triage notes? @ -Yes, and I agree, it is accurate with regards to the patient's symptoms. Were old charts reviewed? @ -No Differential Diagnosis? @ -Differential Abdominal Pain Men: Appendicitis, cholecystitis, diverticulosis, ischemic bowel, pancreatitis, hepa titis, UTI, gastroenteritis, AAA, incarcerated hernia, bowel obstruction, constipation, inflammatory bowel, hepatitis, peptic ulcer disease, splenic infarction, perforated viscus, testicular torsion, this is not meant to be an all-inclusive list EKG interpreted by me (3pts min.)? @ -EKG interpreted by me demonstrating the following: Atrial fibrillation. Ventricular rate 92 bpm, QRS duration 94 ms, QTc 402 ms. X-rays interpreted by me (1pt min.)? @ -Not obtained CT interpreted by me (1pt min.)? @ -CT scan of the abdomen and pelvis obtained. My interpretation identifies no evidence of bowel wall thickening or free air. US of the abdomen obtained. My interpretation was unable to identify the CBD. U/S interpreted by me (1pt. min.)? @ -Not obtained What testing was considered but not performed? (CT, X-rays, U/S, labs)? Why? @ -None What meds were considered but not given? Why? @ -None Did you discuss the management of the patient with other professionals? @ -Yes, Dr. Kimble, who was initially agreeable to admission. However after discussing the case with GI, they advised that they are not on-call after noon today and recommended transfer out due to their concern for cholangitis. Dr. Stern accepted the patient for transfer to [facility] as an ED to ED transfer. Did you reconcile home meds? @ -Yes Was smoking cessation discussed for >3mins.? @ -No Was critical care preformed (if so, how long)? @ -No Were there social determinants of health that impacted care today? How? (Homelessness, low income, unemployed, alcoholism, drug addiction, transportation, low edu. Level, literacy, decrease access to med. care, halfway, rehab)? @ -No Was there de-escalation of care discussed even if they declined? (Discuss DNR or withdrawal of care, Hospice)? @ -No What co-morbidities impacted this encounter? (DM, HTN, Smoking, COPD, CAD, Cancer, CVA, Hep., AIDS, mental health diagnosis, sleep apnea, morbid obesity)? @ -A-fib, HLD, HTN Was patient admitted / discharged? @ -Transferred. Lab work demonstrates leukocytosis with a white blood cell count of 32,000. Lactic acid elevated at 3.5. Bilirubin elevated at 7.9 with an AST of 345 and ALT of 348. Amylase [address] scan of the abdomen and pelvis obtained revealing no acute process. Ultrasound of the abdomen obtained as well revealing hepatomegaly without any other acute findings, however examination was very limited by patient's bowel gas and body habitus. Patient no longer has his gallbladder. Hepatitis panel and fractionated bilirubin levels were ordered. Patient states that he has a shot of liquor daily. Given the leukocytosis, blood cultures were obtained and he was given 2 g of ceftriaxone. We were initially going to admit the patient at our facility and he was accepted for admission at 0800. However gastroenterology advised that they are not on-call after noon today and after reviewing the patient's chart, they called back at noon and advised that they are concerned for cholangitis and advised transfer to another facility with GI coverage available. Case discussed with general surgery as well, who is also in agreement with this plan. After the patient had already been admitted for couple of hours he did start to decompensate. Lactic acid repeated and elevated at 4.7 and patient started to become hypotensive with blood pressures in the 90s systolically. Because they ended up refusing the admission our facility, care was taken back over by us and he was treated with an additional 2 L bolus of IV fluids. Due to concern for cholangitis, patient also given a dose of metronidazole 500 mg. He did start to respond to IV fluids with blood pressure in the range of 100-110 systolically and a central line with pressors was not needed prior to transfer. Patient transferred to [facility] for possible cholangitis and lack of GI coverage at our facility. This will be an ED to ED transfer. Dr. Stern is the accepting ED physician. Undiagnosed new problem with uncertain prognosis? @ -None Drug Therapy requiring intensive monitoring for toxicity (Heparin, Nitro, Insulin, Cardizem)? @ -None Were any procedures done? @ -None Diagnosis/symptom? @ -Cholangitis, pancreatitis Acute, or Chronic, or Acute on Chronic? @ -Acute Uncomplicated (without systemic symptoms) or Complicated (systemic symptoms)? @ -Complicated Side effects of treatment? @ -None Exacerbation, Progression, or Severe Exacerbation] @ -Not applicable Poses a threat to life or bodily function? @ -Yes This case was discussed in detail with the attending ED physician, Dr. Zhang. Presentation, findings, and treatment plan discussed in detail as well. - Lab Data Result diagrams: 11/19/23 06:10 11/19/23 06:10 Lab Results 11/19/23 11/19/23 11/19/23 Range/Units 06:09 06:10 06:10 WBC 32.0 H (3.8-10.6) k/uL RBC 5.66 (4.30-5.90) m/uL Hgb 17.9 H (13.0-17.5) gm/dL Hct 53.8 H (39.0-53.0) % MCV 95.1 (80.0-100.0) fL MCH 31.6 (25.0-35.0) pg MCHC 33.2 (31.0-37.0) g/dL RDW 13.0 (11.5-15.5) % Plt Count 212 (150-450) k/uL MPV 8.5 Neutrophils % (Manual) 73 % Band Neuts % (Manual) 16 % Lymphocytes % (Manual) 5 % Monocytes % (Manual) 7 % Neutrophils # (Manual) 28.40 H (1.3-7.7) k/uL Lymphocytes # (Manual) 1.60 (1.0-4.8) k/uL Monocytes # (Manual) 2.24 H (0-1.0) k/uL Nucleated RBCs 0 (0-0) /100 WBC Manual Slide Review Performed RBC Morphology Normal Sodium 138 (137-145) mmol/L Potassium 4.7 (3.5-5.1) mmol/L Chloride 103 (98-107) mmol/L Carbon Dioxide 22 (22-30) mmol/L Anion Gap 13 mmol/L BUN 17 (9-20) mg/dL Creatinine 0.89 (0.66-1.25) mg/dL Est GFR (CKD-EPI)AfAm >90 (>60 ml/min/1.73 sqM) Est GFR (CKD-EPI)NonAf 85 (>60 ml/min/1.73 sqM) Glucose 164 H (74-99) mg/dL POC Glucose (mg/dL) 152 H (70-110) mg/dL POC Glu Fur Drummer ID Karen Tyler Lactic Ac Sepsis Rflx Plasma Lactic Acid Kris (0.7-2.0) mmol/L Calcium 10.2 (8.4-10.2) mg/dL Total Bilirubin 7.9 H (0.2-1.3) mg/dL Conjugated Bilirubin (0.0-0.3) mg/dL Unconjugated Bilirubin (0.0-1.1) mg/dL Delta Bilirubin (0.0-0.2) mg/dL AST 345 H (17-59) U/L ALT 348 H (4-49) U/L Alkaline Phosphatase 182 H (38-126) U/L Troponin I (0.000-0.034) ng/mL Total Protein 8.2 (6.3-8.2) g/dL Albumin 4.4 (3.5-5.0) g/dL Amylase 300 H (30-110) U/L Lipase 5932 H (23-300) U/L Urine Color Urine Appearance (Clear) Urine pH (5.0-8.0) Ur Specific [place] (1.001-1.035) Urine Protein (Negative) Urine Glucose (UA) (Negative) Urine Ketones (Negative) Urine Blood (Negative) Urine Nitrite (Negative) Urine Bilirubin (Negative) Urine Urobilinogen (<2.0) mg/dL Ur Leukocyte Esterase (Negative) Urine RBC (0-5) /hpf Urine WBC (0-5) /hpf Ur Squamous Epith Cells (0-4) /hpf Urine Mucus (None) /hpf Hepatitis A IgM Ab Hep Bs Antigen (Nonreactive) Hep B Core IgM Ab (Nonreactive) Hep C IgG Ab (Nonreactive) Influenza Type A (PCR) (Not Detectd) Influenza Type B (PCR) (Not Detectd) RSV (PCR) (Not Detectd) SARS-CoV-2 (PCR) (Not Detectd) 11/19/23 11/19/23 11/19/23 Range/Units 06:10 06:10 06:34 WBC (3.8-10.6) k/uL RBC (4.30-5.90) m/uL Hgb (13.0-17.5) gm/dL Hct (39.0-53.0) % MCV (80.0-100.0) fL MCH (25.0-35.0) pg MCHC (31.0-37.0) g/dL RDW (11.5-15.5) % Plt Count (150-450) k/uL MPV Neutrophils % (Manual) % Band Neuts % (Manual) % Lymphocytes % (Manual) % Monocytes % (Manual) % Neutrophils # (Manual) (1.3-7.7) k/uL Lymphocytes # (Manual) (1.0-4.8) k/uL Monocytes # (Manual) (0-1.0) k/uL Nucleated RBCs (0-0) /100 WBC Manual Slide Review RBC Morphology Sodium (137-145) mmol/L Potassium (3.5-5.1) mmol/L Chloride (98-107) mmol/L Carbon Dioxide (22-30) mmol/L Anion Gap mmol/L BUN (9-20) mg/dL Creatinine (0.66-1.25) mg/dL Est GFR (CKD-EPI)AfAm (>60 ml/min/1.73 sqM) Est GFR (CKD-EPI)NonAf (>60 ml/min/1.73 sqM) Glucose (74-99) mg/dL POC Glucose (mg/dL) (70-110) mg/dL POC Glu Fur Drummer ID Lactic Ac Sepsis Rflx Plasma Lactic Acid Kris 3.5 H* (0.7-2.0) mmol/L Calcium (8.4-10.2) mg/dL Total Bilirubin (0.2-1.3) mg/dL Conjugated Bilirubin (0.0-0.3) mg/dL Unconjugated Bilirubin (0.0-1.1) mg/dL Delta Bilirubin (0.0-0.2) mg/dL AST (17-59) U/L ALT (4-49) U/L Alkaline Phosphatase (38-126) U/L Troponin I <0.012 (0.000-0.034) ng/mL Total Protein (6.3-8.2) g/dL Albumin (3.5-5.0) g/dL Amylase (30-110) U/L Lipase (23-300) U/L Urine Color Urine Appearance (Clear) Urine pH (5.0-8.0) Ur Specific [place] (1.001-1.035) Urine Protein (Negative) Urine Glucose (UA) (Negative) Urine Ketones (Negative) Urine Blood (Negative) Urine Nitrite (Negative) Urine Bilirubin (Negative) Urine Urobilinogen (<2.0) mg/dL Ur Leukocyte Esterase (Negative) Urine RBC (0-5) /hpf Urine WBC (0-5) /hpf Ur Squamous Epith Cells (0-4) /hpf Urine Mucus (None) /hpf Hepatitis A IgM Ab Hep Bs Antigen (Nonreactive) Hep B Core IgM Ab (Nonreactive) Hep C IgG Ab (Nonreactive) Influenza Type A (PCR) Not Detected (Not Detectd) Influenza Type B (PCR) Not Detected (Not Detectd) RSV (PCR) Not Detected (Not Detectd) SARS-CoV-2 (PCR) Not Detected (Not Detectd) 11/19/23 11/19/23 11/19/23 Range/Units 07:09 07:48 08:13 WBC (3.8-10.6) k/uL RBC (4.30-5.90) m/uL Hgb (13.0-17.5) gm/dL Hct (39.0-53.0) % MCV (80.0-100.0) fL MCH (25.0-35.0) pg MCHC (31.0-37.0) g/dL RDW (11.5-15.5) % Plt Count (150-450) k/uL MPV Neutrophils % (Manual) % Band Neuts % (Manual) % Lymphocytes % (Manual) % Monocytes % (Manual) % Neutrophils # (Manual) (1.3-7.7) k/uL Lymphocytes # (Manual) (1.0-4.8) k/uL Monocytes # (Manual) (0-1.0) k/uL Nucleated RBCs (0-0) /100 WBC Manual Slide Review RBC Morphology Sodium (137-145) mmol/L Potassium (3.5-5.1) mmol/L Chloride (98-107) mmol/L Carbon Dioxide (22-30) mmol/L Anion Gap mmol/L BUN (9-20) mg/dL Creatinine (0.66-1.25) mg/dL Est GFR (CKD-EPI)AfAm (>60 ml/min/1.73 sqM) Est GFR (CKD-EPI)NonAf (>60 ml/min/1.73 sqM) Glucose (74-99) mg/dL POC Glucose (mg/dL) (70-110) mg/dL POC Glu Fur Drummer ID Lactic Ac Sepsis Rflx Y Plasma Lactic Acid Kris (0.7-2.0) mmol/L Calcium (8.4-10.2) mg/dL Total Bilirubin 7.4 H (0.2-1.3) mg/dL Conjugated Bilirubin 4.2 H (0.0-0.3) mg/dL Unconjugated Bilirubin 2.3 H (0.0-1.1) mg/dL Delta Bilirubin 0.9 H (0.0-0.2) mg/dL AST (17-59) U/L ALT (4-49) U/L Alkaline Phosphatase (38-126) U/L Troponin I (0.000-0.034) ng/mL Total Protein (6.3-8.2) g/dL Albumin (3.5-5.0) g/dL Amylase (30-110) U/L Lipase (23-300) U/L Urine Color Dark Yellow Urine Appearance Clear (Clear) Urine pH 6.5 (5.0-8.0) Ur Specific [place] 1.048 H (1.001-1.035) Urine Protein 1+ H (Negative) Urine Glucose (UA) Negative (Negative) Urine Ketones Negative (Negative) Urine Blood Negative (Negative) Urine Nitrite Negative (Negative) Urine Bilirubin 2+ H (Negative) Urine Urobilinogen 2.0 (<2.0) mg/dL Ur Leukocyte Esterase Negative (Negative) Urine RBC 2 (0-5) /hpf Urine WBC 8 H (0-5) /hpf Ur Squamous Epith Cells <1 (0-4) /hpf Urine Mucus Rare H (None) /hpf Hepatitis A IgM Ab Hep Bs Antigen (Nonreactive) Hep B Core IgM Ab (Nonreactive) Hep C IgG Ab (Nonreactive) Influenza Type A (PCR) (Not Detectd) Influenza Type B (PCR) (Not Detectd) RSV (PCR) (Not Detectd) SARS-CoV-2 (PCR) (Not Detectd) 11/19/23 11/19/23 11/19/23 Range/Units 08:13 10:10 10:58 WBC (3.8-10.6) k/uL RBC (4.30-5.90) m/uL Hgb (13.0-17.5) gm/dL Hct (39.0-53.0) % MCV (80.0-100.0) fL MCH (25.0-35.0) pg MCHC (31.0-37.0) g/dL RDW (11.5-15.5) % Plt Count (150-450) k/uL MPV Neutrophils % (Manual) % Band Neuts % (Manual) % Lymphocytes % (Manual) % Monocytes % (Manual) % Neutrophils # (Manual) (1.3-7.7) k/uL Lymphocytes # (Manual) (1.0-4.8) k/uL Monocytes # (Manual) (0-1.0) k/uL Nucleated RBCs (0-0) /100 WBC Manual Slide Review RBC Morphology Sodium (137-145) mmol/L Potassium (3.5-5.1) mmol/L Chloride (98-107) mmol/L Carbon Dioxide (22-30) mmol/L Anion Gap mmol/L BUN (9-20) mg/dL Creatinine (0.66-1.25) mg/dL Est GFR (CKD-EPI)AfAm (>60 ml/min/1.73 sqM) Est GFR (CKD-EPI)NonAf (>60 ml/min/1.73 sqM) Glucose (74-99) mg/dL POC Glucose (mg/dL) (70-110) mg/dL POC Glu Fur Drummer ID Lactic Ac Sepsis Rflx Y Plasma Lactic Acid Kris 4.7 H* (0.7-2.0) mmol/L Calcium (8.4-10.2) mg/dL Total Bilirubin (0.2-1.3) mg/dL Conjugated Bilirubin (0.0-0.3) mg/dL Unconjugated Bilirubin (0.0-1.1) mg/dL Delta Bilirubin (0.0-0.2) mg/dL AST (17-59) U/L ALT (4-49) U/L Alkaline Phosphatase (38-126) U/L Troponin I (0.000-0.034) ng/mL Total Protein (6.3-8.2) g/dL Albumin (3.5-5.0) g/dL Amylase (30-110) U/L Lipase (23-300) U/L Urine Color Urine Appearance (Clear) Urine pH (5.0-8.0) Ur Specific [place] (1.001-1.035) Urine Protein (Negative) Urine Glucose (UA) (Negative) Urine Ketones (Negative) Urine Blood (Negative) Urine Nitrite (Negative) Urine Bilirubin (Negative) Urine Urobilinogen (<2.0) mg/dL Ur Leukocyte Esterase (Negative) Urine RBC (0-5) /hpf Urine WBC (0-5) /hpf Ur Squamous Epith Cells (0-4) /hpf Urine Mucus (None) /hpf Hepatitis A IgM Ab Borderline Hep Bs Antigen Nonreactive (Nonreactive) Hep B Core IgM Ab Nonreactive (Nonreactive) Hep C IgG Ab Nonreactive (Nonreactive) Influenza Type A (PCR) (Not Detectd) Influenza Type B (PCR) (Not Detectd) RSV (PCR) (Not Detectd) SARS-CoV-2 (PCR) (Not Detectd) - Radiology Data Radiology results: report reviewed, image reviewed Disposition Clinical Impression: Cholangitis, Pancreatitis Disposition: OTHER INSTITUTION NOT DEFINED Referrals: Riccardo rBown MD [Primary Care Provider] - 1-2 days - Out of Hospital Transfer - Req. Specs Out of Hospital Transfer - Requested Specifics: Other Emergency Center ([facility])
[2023-11-19 06:48] LABS: HCT 53.8 % (39.0-53.0); HGB 17.9 gm/dL (13.0-17.5); MCH 31.6 pg (25.0-35.0); MCHC 33.2 g/dL (31.0-37.0); MCV 95.1 fL (80.0-100.0); Mean Platelet Volume 8.5; Platelet Count 212 k/uL (150-450); RBC 5.66 m/uL (4.30-5.90)
[2023-11-19 06:50] LABS: ALT 348 U/L (4-49); AST 345 U/L (17-59); African American GFR (CKD) >90 (>60 ml/min/1.73 sqM); Albumin 4.4 g/dL (3.5-5.0); Alkaline Phosphatase 182 U/L (38-126); Amylase 300 U/L (30-110); Anion Gap 13 mmol/L; Blood Urea Nitrogen 17 mg/dL (9-20); Calcium 10.2 mg/dL (8.4-10.2); Carbon Dioxide 22 mmol/L (22-30); Chloride 103 mmol/L (98-107); Glucose 164 mg/dL (74-99); Non-African American GFR(CKD) 85 (>60 ml/min/1.73 sqM); Potassium 4.7 mmol/L (3.5-5.1); Sodium 138 mmol/L (137-145); Total Bilirubin 7.9 mg/dL (0.2-1.3); Total Protein 8.2 g/dL (6.3-8.2)
[2023-11-19 07:07] LABS: Band Neutrophils % 16 %; Monocytes # (M) 2.24 k/uL (0-1.0); Neutrophils % (M) 73 %; Nucleated Red Blood Cells 0 /100 WBC (0-0); RBC Morphology Normal; Total Cells Counted 200
[2023-11-19 07:29] LABS: Lipase 5932 U/L (23-300)
--- NOTE | 2023-11-19 07:39 | CT ---
EXAMINATION TYPE: CT abdomen pelvis w con DATE OF EXAM: 11/19/2023 COMPARISON: 03/14/2023 HISTORY: abd pain CT DLP: 1613.2 mGycm CONTRAST: CT scan of the abdomen and pelvis is performed without Oral Contrast and with IV Contrast, patient in jected with 100 mL of Isovue 300. FINDINGS: LUNG BASES-: Chronic reticulonodular basilar process. No acute infiltrate. There is evidence of cardi omegaly. LIVER/GB: The gallbladder surgically absent. Mild hepatic steatosis noted. No space occupying hepa tic lesion. Biliary tree is of normal caliber. PANCREAS: No inflammation. No distinct mass. SPLEEN: No splenic enlargement. No lesion seen. ADRENALS: No nodule. No thickening. KIDNEYS/BLADDER: No hydronephrosis. No nephrolithiasis. No distinct renal mass. Urinary bladder g rossly unremarkable. BOWEL: Normal appendix. Normal bowel caliber. No inflammation. Sigmoid diverticulosis without diver ticulitis. No free air or abscess seen. GENITAL ORGANS: The prostate gland is enlarged. LYMPH NODES: No greater than 1cm abdominal or pelvic lymph nodes are appreciated. AORTA: No significant abnormality. OSSEOUS STRUCTURES: No significant abnormality is seen. OTHER: No significant additional abnormality is seen. IMPRESSION: 1. No acute intra-abdominal process seen at this time.
[2023-11-19] MEDS: HYDROmorphone 1 MG/ML 1 ML SYRINGE IVP STA (07:45)
[2023-11-19] MEDS ORDERED: ACETAMINOPHEN TAB 325 MG TAB PO PRN (08:01)
[2023-11-19] MEDS ORDERED: HYDROmorphone 1 MG/ML 1 ML SYRINGE IVP PRN (08:01)
[2023-11-19] MEDS ORDERED: ONDANSETRON 4 MG/2 ML VIAL IVP PRN (08:01)
[2023-11-19] MEDS ORDERED: NALOXONE 0.4 MG/ML 1 ML VIAL IV PRN (08:01)
[2023-11-19] MEDS: cefTRIAXone IN SWFI 1,000 MG/10 ML SYRINGE IVP STA (08:10)
[2023-11-19] MEDS: SODIUM CHLORIDE 0.9% 1,000 ML IV SCH (08:12)
[2023-11-19 08:19] LABS: Appearance,Urine Clear (Clear); Bilirubin,Urine 2+ (Negative); Blood,Urine Negative (Negative); Color,Urine Dark Yellow; Glucose,Urine (UA) Negative (Negative); Ketones,Urine Negative (Negative); Leukocyte Esterase,Urine Negative (Negative); Mucus,Urine Rare /hpf; Nitrite,Urine Negative (Negative); PH, Urine 6.5 (5.0-8.0); Protein,Urine 1+ (Negative); RBC,Urine 2 /hpf (0-5); Squamous Epithelial Cell,Urine <1 /hpf (0-4); WBC,Urine 8 /hpf (0-5)
[2023-11-19 08:40] LABS: Specific Gravity,Urine 1.048 (1.001-1.035)
[2023-11-19 08:48] LABS: Bilirubin, Conjugated 4.2 mg/dL (0.0-0.3); Bilirubin, Delta 0.9 mg/dL (0.0-0.2); Bilirubin,Unconjugated 2.3 mg/dL (0.0-1.1); Total Bilirubin 7.4 mg/dL (0.2-1.3)
--- NOTE | 2023-11-19 09:11 | US ---
EXAMINATION TYPE: US abdomen limited DATE OF EXAM: 11/19/2023 COMPARISON: CT 11/19/2023 same day, US 03/14/2023 CLINICAL INDICATION: Male, 72 years old with history of Elevated LFTs, abdominal pain, pancreatitis; Elevated LFTs, pain x 3 days. Hx cholecystectomy. Abdominal pain x 3 days. TECHNIQUE: Multiple sonographic images of the right upper quadrant are obtained. FINDINGS: EXAM MEASUREMENTS: Liver Length: 18.2 cm, limited. Gallbladder Wall: Surgically absent CBD: Obscured Right Kidney: 11.2 x 5.9 x 5.5 cm [employer] TECHNICIAN NOTES: Very difficult and limited exam due to patient body habitus and bowel gas. Pancreas: Not well seen. Liver: Appears enlarged, however measurement is limited. Heterogeneous echotexture. Gallbladder: Surgically absent Evidence for sonographic Mathur's sign: No CBD: Obscured Right Kidney: No hydronephrosis or masses seen IMPRESSION: 1. Hepatomegaly. 2. Limited exam
[2023-11-19] MEDS: HYDROmorphone 0.5 MG/0.5 ML SYRINGE IVP PRN (09:24)
[2023-11-19] MEDS ORDERED: ARTIFICIAL TEARS-HYPROMELLOSE DROPS 15 ML BTL BOTH EYES PRN (09:55)
[2023-11-19 11:32] VITALS: RESP 18
[2023-11-19] MEDS: SODIUM CHLORIDE 0.9% 1,000 ML IV ONE (11:40)
[2023-11-19] MEDS: ALBUTEROL NEBULIZED 2.5 MG/3 ML INHALATION PRN (12:06)
[2023-11-19] MEDS: metroNIDAZOLE-NS PMX 500 MG in SALINE 1 100ML.BAG IVPB STA (13:12)
[2023-11-19 14:14] VITALS: BP 100/45; PULSE 102; TEMP 98.5
[2023-11-19 15:57] LABS: Hepatitis B Core IgM Nonreactive (Nonreactive); Hepatitis B Surface Antigen Nonreactive (Nonreactive); Hepatitis C IgG Antibody Nonreactive (Nonreactive)
--- NOTE | 2023-11-19 16:39 | P.CONS ---
History of Present Illness - Reason for Consult Consult date: 11/19/23 - History of Present Illness Patient is a 72-year-old male with history of recent cholecystectomy, hypertension, dyslipidemia, atrial fibrillation presented with abdominal pain for the last 4 days. He claims that at worst abdominal pain is 10 out of 10, bandlike in epigastric region. He denies any significant nausea, vomiting, urinary or bowel complaints. He denies any chest pain or shortness of breath. On initial presentation, WBC was 32, hemoglobin 17.9, creatinine 0.89, lactate 3.5, total bili 7.9, AST 345, ALT 348, ALP 182, troponin negative, lipase 5932. Abdomen pelvis CT showed mild hepatic steatosis, no space-occupying hepatic lesion, biliary tree of normal caliber. Abdominal ultrasound showed hepatomegaly, CBD was obscured, unable to visualize. Patient received IV fluids as well as IV ceftriaxone and IV Flagyl in the ED. GI was consulted. Pertinent positives and negatives as discussed in HPI, a complete review of systems was performed and all other systems are negative. Patient seen and examined at bedside. Vital signs reviewed General: nontoxic, in mild distress, appears at stated age Derm: warm, dry Head: atraumatic, normocephalic, symmetric Eyes: EOMI, no lid lag, anicteric sclera, pupils equal round reactive to light ENT: Nose and ears atraumatic Neck: No thyromegaly, supple Mouth: no lip lesion, mucus membranes moist Cardiovascular: S1S2 reg, no murmur, no edema Lungs: clear to auscultation bilateral, no rhonchi, no rales, no wheeze, no accessory muscle use Abdominal: soft, tender to palpation in epigastric region, no guarding, no appreciable organomegaly Ext: no gross muscle atrophy, muscle strength muscle strength 5 out of 5 in all 4 extremities, no contractures Neuro: CN II-XII grossly intact Psych: Alert, oriented, appropriate affect Assessment/Plan: Sepsis likely secondary to acute cholangitis - Discussed management with GI, unavailable over the weekend, recommended transfer to tertiary care center. - Discussed plan with ER, who will be facilitating the transfer Past Medical History Past Medical History: Atrial Fibrillation, Asthma, Chest Pain / Angina, GERD/Reflux, Hyperlipidemia, Hypertension, Osteoarthritis (OA), Respiratory Disorder Additional Past Medical History / Comment(s): Hx Hammond's esophagus, hx colon polyps, prediabetic, varicose veins, INTERSTITIAL PULMONARY DISEASE, afib diagnosed March 2023, closed head injury 1967 History of Any Multi-Drug Resistant Organisms: None Reported Past Surgical History: Cholecystectomy, Heart Catheterization With Stent, Hernia Repair Additional Past Surgical History / Comment(s): Chest wound repair-1966, bilateral cataracts removed, 3 cardiac stents, bilateral inguinal hernia repairs, COLONOSCOPY/EGD, LORENZA, cardioversion, PFO repair 09/08/23. Past Anesthesia/Blood Transfusion Reactions: Motion Sickness, Postoperative Nausea & Vomiting (PONV) Additional Past Anesthesia/Blood Transfusion Reaction / Comm: No blood transfusion hx Date of Last Stent Placement:: 2018 Past Psychological History: No Psychological Hx Reported Smoking Status: Current every day smoker Past Alcohol Use History: Daily Past Drug Use History: None Reported - Past Family History Sister(s) Family Medical History: Cancer Father Family Medical History: Cancer Brother(s) Family Medical History: Cancer Additional Family Medical History / Comment(s): 2 brothers had cancer. Medications and Allergies Home Medications Medication Instructions Recorded Confirmed Type Montelukast [Singulair] 10 mg PO HS 06/20/14 11/19/23 History Omeprazole [PriLOSEC] 20 mg PO DAILY 06/20/14 11/19/23 History lisinopriL [Zestril] 10 mg PO HS 06/20/14 11/19/23 History Rosuvastatin Calcium [Crestor] 40 mg PO DAILY 11/16/18 11/19/23 History Albuterol Inhaler [Ventolin Hfa 2 puff INHALATION RT-Q4H PRN 07/16/21 11/19/23 History Inhaler] Aspirin EC [Ecotrin Low Dose] 81 mg PO HS 03/14/23 11/19/23 History Carboxymethylcellulose Sodium 1 drop BOTH EYES BID PRN 03/14/23 11/19/23 History Cholecalciferol [Vitamin D3 (10 10 mcg PO DAILY 03/14/23 11/19/23 History Mcg = 400 Iu)] Tamsulosin [Flomax] 0.4 mg PO PC-SUPPER #30 cap 03/21/23 11/19/23 Rx Metoprolol Tartrate [Lopressor] 25 mg PO BID 05/11/23 11/19/23 History Multivitamins, Thera [Multivitamin 1 tab PO DAILY 05/11/23 11/19/23 History (formulary)] Apixaban [Eliquis] 2.5 mg PO BID #180 tab 09/09/23 11/19/23 Rx Clopidogrel [Plavix] 75 mg PO DAILY #90 tablet 09/09/23 11/19/23 Rx Allergies Allergy/AdvReac Type Severity Reaction Status Date / Time Penicillins Allergy Rash/Hives Verified 11/19/23 09:29 shellfish derived [Shellfish] Allergy Anaphylaxis Verified 11/19/23 09:29 vitamin B Allergy Rash/Hives Uncoded 11/19/23 09:29 Physical Exam Vitals: Vital Signs Temp Pulse Resp BP Pulse Ox 11/19/23 13:54 98.5 F 102 H 18 100/45 97 11/19/23 12:16 96 11/19/23 12:09 109 H 11/19/23 11:04 82 18 91/56 95 11/19/23 10:00 98 26 H 91/63 96 11/19/23 09:21 101 H 20 104/56 95 11/19/23 07:48 94 22 117/79 96 11/19/23 06:34 100 22 131/89 98 11/19/23 05:53 97.3 F L 95 28 H 116/79 93 L Intake and Output 11/19/23 11/19/23 11/19/23 06:59 14:59 22:59 Other: Weight 108.862 kg Results CBC & Chem 7: 11/19/23 06:10 11/19/23 06:10 Labs: Abnormal Lab Results - Last 24 Hours (Table) 11/19/23 11/19/23 11/19/23 Range/Units 06:09 06:10 06:10 WBC 32.0 H (3.8-10.6) k/uL Hgb 17.9 H (13.0-17.5) gm/dL Hct 53.8 H (39.0-53.0) % Neutrophils # (Manual) 28.40 H (1.3-7.7) k/uL Monocytes # (Manual) 2.24 H (0-1.0) k/uL Glucose 164 H (74-99) mg/dL POC Glucose (mg/dL) 152 H (70-110) mg/dL Plasma Lactic Acid Kris (0.7-2.0) mmol/L Total Bilirubin 7.9 H (0.2-1.3) mg/dL Conjugated Bilirubin (0.0-0.3) mg/dL Unconjugated Bilirubin (0.0-1.1) mg/dL Delta Bilirubin (0.0-0.2) mg/dL AST 345 H (17-59) U/L ALT 348 H (4-49) U/L Alkaline Phosphatase 182 H (38-126) U/L Amylase 300 H (30-110) U/L Lipase 5932 H (23-300) U/L Ur Specific [place] (1.001-1.035) Urine Protein (Negative) Urine Bilirubin (Negative) Urine WBC (0-5) /hpf Urine Mucus (None) /hpf 11/19/23 11/19/23 11/19/23 Range/Units 06:10 07:48 08:13 WBC (3.8-10.6) k/uL Hgb (13.0-17.5) gm/dL Hct (39.0-53.0) % Neutrophils # (Manual) (1.3-7.7) k/uL Monocytes # (Manual) (0-1.0) k/uL Glucose (74-99) mg/dL POC Glucose (mg/dL) (70-110) mg/dL Plasma Lactic Acid Kris 3.5 H* (0.7-2.0) mmol/L Total Bilirubin 7.4 H (0.2-1.3) mg/dL Conjugated Bilirubin 4.2 H (0.0-0.3) mg/dL Unconjugated Bilirubin 2.3 H (0.0-1.1) mg/dL Delta Bilirubin 0.9 H (0.0-0.2) mg/dL AST (17-59) U/L ALT (4-49) U/L Alkaline Phosphatase (38-126) U/L Amylase (30-110) U/L Lipase (23-300) U/L Ur Specific [place] 1.048 H (1.001-1.035) Urine Protein 1+ H (Negative) Urine Bilirubin 2+ H (Negative) Urine WBC 8 H (0-5) /hpf Urine Mucus Rare H (None) /hpf 11/19/23 Range/Units 10:10 WBC (3.8-10.6) k/uL Hgb (13.0-17.5) gm/dL Hct (39.0-53.0) % Neutrophils # (Manual) (1.3-7.7) k/uL Monocytes # (Manual) (0-1.0) k/uL Glucose (74-99) mg/dL POC Glucose (mg/dL) (70-110) mg/dL Plasma Lactic Acid Kris 4.7 H* (0.7-2.0) mmol/L Total Bilirubin (0.2-1.3) mg/dL Conjugated Bilirubin (0.0-0.3) mg/dL Unconjugated Bilirubin (0.0-1.1) mg/dL Delta Bilirubin (0.0-0.2) mg/dL AST (17-59) U/L ALT (4-49) U/L Alkaline Phosphatase (38-126) U/L Amylase (30-110) U/L Lipase (23-300) U/L Ur Specific [place] (1.001-1.035) Urine Protein (Negative) Urine Bilirubin (Negative) Urine WBC (0-5) /hpf Urine Mucus (None) /hpf
[2023-11-19 17:09] LABS: Hepatitis A Antibody IgM Borderline
[2023-11-19] MEDS ORDERED: TAMSULOSIN 0.4 MG CAP.ER.24H PO SCH (18:30)
[2023-11-19] MEDS ORDERED: ASPIRIN 81 MG PO SCH (21:00)
[2023-11-19] MEDS ORDERED: APIXABAN 2.5 MG TABLET PO SCH (21:00)
[2023-11-19] MEDS ORDERED: METOPROLOL TARTRATE 25 MG TAB PO SCH (21:00)
[2023-11-19] MEDS ORDERED: MONTELUKAST 10 MG TAB PO SCH (21:00)
[2023-11-19] MEDS ORDERED: lisinopriL 10 MG TAB PO SCH (21:00)
[2023-11-20] MEDS ORDERED: PANTOPRAZOLE 40 MG TABLET PO SCH (09:00)
[2023-11-20] MEDS ORDERED: CHOLECALCIFEROL 10 MCG (400 IU) TABLET PO SCH (09:00)
[2023-11-20] MEDS ORDERED: CLOPIDOGREL 75 MG TAB PO SCH (09:00)
[2023-11-20] MEDS ORDERED: ATORVASTATIN 80 MG TAB PO SCH (09:00)
[2023-11-20] MEDS ORDERED: MULTIVITAMINS, THERA 1 EACH TAB PO SCH (09:00)
== END 2023-11-19 14:19 | disposition other institution (70) ==
LOC: EC 05:47 → 5NMEDONC 09:39 → UNDOADMIN 09:39 → EC 14:19
DX: K83.09 Other cholangitis (principal); K85.90 Acute pancreatitis without necrosis or infection, unspecified; I10 Essential (primary) hypertension; I48.91 Unspecified atrial fibrillation; E78.5 Hyperlipidemia, unspecified; F17.200 Nicotine dependence, unspecified, uncomplicated; Z79.899 Other long term (current) drug therapy; Z88.0 Allergy status to penicillin; Z91.013 Allergy to seafood; Z88.8 Allergy status to other drugs, medicaments and biological substances; Z95.5 Presence of coronary angioplasty implant and graft; Z90.49 Acquired absence of other specified parts of digestive tract; Z11.52 Encounter for screening for COVID-19
CPT/HCPCS: 36415; 94640; 93005; 80053; 80074; 82150; 82248; 83605; 83690; 84484; 85025; 81001; 87040; 87077; 87186; 87636; 76705; 74177; 99285; 96365; 96375 ×4; 96376; 96361 ×6; J2270; J2405; J0696; J1170 ×2; Q9967; J1836

== ENCOUNTER 2024-02-15 05:48 | Day surgery (SDC) | payer OTHER ==
[2024-02-15] MEDS ORDERED: ALPRAZolam 0.5 MG TAB PO PRN (06:03)
[2024-02-15] MEDS ORDERED: NITROGLYCERIN SL TABS 0.4 MG TAB SUBLINGUAL PRN ×2 (06:03→08:32)
[2024-02-15] MEDS ORDERED: ALPRAZolam 0.25 MG TAB PO PRN (06:03)
[2024-02-15 06:39] LABS: Glucose,Whole Blood 160 mg/dL (70-110)
[2024-02-15] MEDS: SODIUM CHLORIDE 0.9% 1,000 ML in EMPTY BAG 1 BAG IV SCH ×2 (06:44→14:00)
[2024-02-15] MEDS: IV FLUID CONTINUATION 1,000 ML IV ONE (06:45)
[2024-02-15 06:54] LABS: African American GFR (CKD) >90 (>60 ml/min/1.73 sqM); Anion Gap 7 mmol/L; Blood Urea Nitrogen 20 mg/dL (9-20); Calcium 9.4 mg/dL (8.4-10.2); Carbon Dioxide 26 mmol/L (22-30); Chloride 104 mmol/L (98-107); Glucose 133 mg/dL (74-99); Non-African American GFR(CKD) >90 (>60 ml/min/1.73 sqM); Potassium 4.5 mmol/L (3.5-5.1); Sodium 137 mmol/L (137-145)
[2024-02-15 07:10] LABS: Basophils # (A) 0.1 k/uL (0-0.2); Basophils % (A) 1 %; Eosinophils # (A) 0.3 k/uL (0-0.7); Eosinophils % (A) 3 %; HCT 44.4 % (39.0-53.0); HGB 14.5 gm/dL (13.0-17.5); Lymphocytes # (A) 2.3 k/uL (1.0-4.8); Lymphocytes % (A) 21 %; MCH 30.6 pg (25.0-35.0); MCHC 32.6 g/dL (31.0-37.0); Mean Platelet Volume 8.6; Monocytes # (A) 0.8 k/uL (0-1.0); Monocytes % (A) 7 %; Neutrophils # (A) 7.3 k/uL (1.3-7.7); Neutrophils % (A) 67 %; Platelet Count 147 k/uL (150-450); RBC 4.72 m/uL (4.30-5.90); RDW 13.7 % (11.5-15.5)
[2024-02-15] MEDS ORDERED: HEPARIN SODIUM 1,000 UN/ML (10ML VL) ONE (07:16)
[2024-02-15] MEDS ORDERED: LIDOCAINE 1% INJ 10MG/ML (20 ML MDV) ONE (07:16)
[2024-02-15] MEDS ORDERED: fentaNYL (PF) 50 MCG/ML 2 ML AMP ONE (07:16)
[2024-02-15] MEDS ORDERED: VERAPAMIL 2.5 MG/ML 2 ML AMP ONE (07:16)
[2024-02-15] MEDS: MIDAZOLAM 2 MG/2 ML VIAL IVP ONE (07:53)
[2024-02-15] MEDS: LIDOCAINE 1% INJ 10MG/ML (20 ML MDV) SQ ONE (07:56)
[2024-02-15] MEDS: fentaNYL (PF) 50 MCG/1 ML VIAL IVP ONE (07:56)
[2024-02-15] MEDS: VERAPAMIL SYRINGE (5 MG/10 ML) INTRAARTER ONE (07:58)
[2024-02-15] MEDS: HEPARIN SODIUM 1,000 UN/ML (10ML VL) IVP ONE ×3 (08:00→08:18)
[2024-02-15] MEDS: HEPARIN SODIUM,PORCINE 10,000 UNIT in SODIUM CHLORIDE 0.9% 1,000 ML IRRIGATION ONE (08:01)
[2024-02-15] MEDS: HEPARIN SODIUM,PORCINE (1 ML) 2,500 UNIT in SODIUM CHLORIDE 0.9% 250 ML IRRIGATION ONE (08:01)
[2024-02-15] MEDS ORDERED: TICAGRELOR 90 MG TAB ONE ×2 (08:07→08:11)
[2024-02-15] MEDS: TICAGRELOR 90 MG TAB PO ONE (08:10)
[2024-02-15] MEDS: NITROGLYCERIN 1000MCG/10ML SYRINGE INTRAARTER ONE ×2 (08:17→08:25)
[2024-02-15] MEDS ORDERED: ALBUTEROL HFA INHALER INHALATION PRN (08:31)
[2024-02-15] MEDS ORDERED: CARBOXYMETHYLCELLULOSE SODIUM D BOTH EYES PRN (08:31)
[2024-02-15] MEDS ORDERED: RX INFO: IV CONTRAST WAS GIVEN 1 EACH MISC MISCELLANE PRN (08:32)
[2024-02-15] MEDS ORDERED: MAG HYDROX/AL HYDROX/SIMETH 30 ML CUP PO PRN (08:32)
[2024-02-15] MEDS ORDERED: ZOLPIDEM 5 MG TAB PO PRN (08:32)
[2024-02-15] MEDS ORDERED: ATROPINE SULFATE 0.1 MG/ML 10ML SYRINGE IV PRN (08:32)
[2024-02-15] MEDS: IOPAMIDOL-370 100ML BTL INTRATHECA ONE (08:33)
--- NOTE | 2024-02-15 08:36 | P.PCN ---
Date of Procedure: 02/15/24 Operative Findings: CARDIAC CATHETERIZATION AND PERCUTANEOUS CORONARY INTERVENTION PERFORMING PHYSICIAN: Anson Vazquez MD, VI PROCEDURE PERFORMED: 1. Selective right and left coronary angiogram 2. Left heart catheterization 3. Successful stenting of proximal to mid LAD using 3.5 x 28 mm Xience BRIAN with an excellent angiographic results with adjunctive use of intravascular imaging 4. Ultrasound-guided access of the right radial artery INDICATION: Chest discomfort and shortness of breath in this 73-year-old gentleman who underwent myocardial perfusion imaging stress test and that came in to be abnormal showing an inferior and anterior ischemia COMPLICATION: None APPROACH: Right radial art LEVEL OF SEDATION: Moderate with the sedation time off 34 minutes PROCEDURE DESCRIPTION: After obtaining informed consent the patient was brought to the cardiac [employer]. The right radial artery was cannulated using micropuncture technique under ultrasound guidance a micropuncture wire passed easily then I placed a 6 Romanian 11 cm sheath. After that anticoagulation was initiated using heparin with continuous ACT monitoring. 2 mg of verapamil intra-arterial given. Subsequently selective right and left coronary angiogram performed using JR4 and JL 3.5 catheter and left heart catheterization was performed using 6 Romanian pigtail catheter. After that I decided to intervene on the LAD. Anticoagulation continued using heparin with continuous ACT monitoring. Subsequently I did engage the left main using JL 3.5 guiding catheter. I did wired the LAD using a run-through wire. Intravascular ultrasound was performed and showed a diameter around 3.5 mm. Predilatation was performed using 3 mm balloon before I deployed 3.5 x 28 mm Xience BRIAN where the stent was positioned under fluoroscopy guidance and deployed under fluoroscopy guidance with postdilatation was performed using 4 mm noncompliant balloon and final angiogram showing excellent angiographic result SELECTIVE CORONARY ANGIOGRAM: The right coronary artery: Medium to large caliber vessel and a dominant vessel with mild disease involving the proximal portion Left main: Is angiographically normal The left circumflex: Large-caliber vessel nondominant vessel with mild disease only The left anterior descending artery: Large-caliber vessel with disease involving the proximal to midportion appears to be in the range of 70 to 80% and patent stent in the mid LAD HEMODYNAMICS: The LVEDP was low at 1 mmHg with no significant gradient across aortic valve CONCLUSION: Patent stent in the mid LAD. Severe disease involving the proximal to mid LAD. I performed successful PCI as described above POSTPROCEDURE MANAGEMENT: 1. Dual antiplatelet therapy using dual antiplatelet therapy using aspirin and Brilinta for at least 6 month 2. Aggressive cholesterol control 3. Follow-up with the patient
[2024-02-15] MEDS: PANTOPRAZOLE 40 MG TABLET PO SCH (13:58)
[2024-02-15] MEDS: ASPIRIN 325 MG TAB PO STA (14:00)
[2024-02-15] MEDS: MULTIVITAMINS, THERA 1 EACH TAB PO SCH (14:00)
[2024-02-15] MEDS: TICAGRELOR 90 MG TAB PO SCH (14:00)
[2024-02-15] MEDS: ATORVASTATIN 80 MG TAB PO SCH (14:00)
[2024-02-15] MEDS: METOPROLOL TARTRATE 25 MG TAB PO SCH (14:00)
[2024-02-15] MEDS: CHOLECALCIFEROL 10 MCG (400 IU) TABLET PO SCH (14:02)
[2024-02-15 15:15] VITALS: BMI 34.4
[2024-02-15] MEDS: TAMSULOSIN 0.4 MG CAP.ER.24H PO SCH (17:10)
[2024-02-15] MEDS: ASPIRIN 81 MG PO SCH (19:54)
[2024-02-15] MEDS: lisinopriL 10 MG TAB PO SCH (19:54)
[2024-02-15] MEDS: MONTELUKAST 10 MG TAB PO SCH (19:54)
[2024-02-16 03:44] VITALS: TEMP 97.8
[2024-02-16] MEDS: APIXABAN 2.5 MG TABLET PO SCH (08:57)
[2024-02-16 10:04] VITALS: BP 146/72; PULSE 68; RESP 18
--- NOTE | 2024-02-16 10:13 | P.DS ---
Providers Attending physician: Anson Vazquez Consults: 02/15/24 08:32 Consult Physician Routine Consulting Provider: [facility] Consult Reason/Comments: Post Interventional patient Do you want consulting provider notified?: Already Contacted Primary care physician: [facility] Hospital Course: The patient is a pleasant 73-year-old gentleman who was admitted to the hospital yesterday and underwent PCI of the LAD He was seen and evaluated this morning. He is asymptomatic and hemodynamically stable. The right radial site is soft and nontender with a good pulse. The patient is going to be discharged home on triple therapy because he has history of atrial fibrillation with lower dose of Eliquis and antiplatelet using aspirin and Brilinta. The importance of taking the medications regularly was discussed with him in details. Plan - Discharge Summary Discharge Rx Participant: Yes New Discharge Prescriptions: New Ticagrelor [Brilinta] 90 mg PO BID #90 tab Continue Montelukast [Singulair] 10 mg PO HS lisinopriL [Zestril] 10 mg PO HS Omeprazole [PriLOSEC] 20 mg PO QAM Rosuvastatin Calcium [Crestor] 40 mg PO DAILY Albuterol Inhaler [Ventolin Hfa Inhaler] 2 puff INHALATION RT-Q4H PRN PRN Reason: Shortness Of Breath Aspirin EC [Ecotrin Low Dose] 81 mg PO HS Metoprolol Tartrate [Lopressor] 25 mg PO BID Apixaban [Eliquis] 5 mg PO BID Cholecalciferol [Vitamin D3 (10 Mcg = 400 Iu)] 10 mcg PO DAILY Carboxymethylcellulose Sodium 1 drop BOTH EYES BID PRN PRN Reason: eye itching Tamsulosin [Flomax] 0.4 mg PO PC-SUPPER #30 cap Multivitamins, Thera [Multivitamin (formulary)] 1 tab PO DAILY Nitroglycerin 0.4 mg SL Q5M PRN PRN Reason: Chest Pain Discharge Medication List Montelukast [Singulair] 10 mg PO HS 06/20/14 [History] Omeprazole [PriLOSEC] 20 mg PO QAM 06/20/14 [History] lisinopriL [Zestril] 10 mg PO HS 06/20/14 [History] Rosuvastatin Calcium [Crestor] 40 mg PO DAILY 11/16/18 [History] Albuterol Inhaler [Ventolin Hfa Inhaler] 2 puff INHALATION RT-Q4H PRN 07/16/21 [History] Aspirin EC [Ecotrin Low Dose] 81 mg PO HS 03/14/23 [History] Carboxymethylcellulose Sodium 1 drop BOTH EYES BID PRN 03/14/23 [History] Cholecalciferol [Vitamin D3 (10 Mcg = 400 Iu)] 10 mcg PO DAILY 03/14/23 [History] Tamsulosin [Flomax] 0.4 mg PO PC-SUPPER #30 cap 03/21/23 [Rx] Metoprolol Tartrate [Lopressor] 25 mg PO BID 05/11/23 [History] Multivitamins, Thera [Multivitamin (formulary)] 1 tab PO DAILY 05/11/23 [History] Apixaban [Eliquis] 5 mg PO BID 02/11/24 [History] Nitroglycerin 0.4 mg SL Q5M PRN 02/11/24 [History] Ticagrelor [Brilinta] 90 mg PO BID #90 tab 02/16/24 [Rx] Follow up Appointment(s)/Referral(s): Anson Vazquez MD [STAFF PHYSICIAN] - 1 Week (APPOINTMENT MADE ON February @ 2:15PM AT THE [facility] LOCATION ) Patient Instructions/Handouts: Moderate Sedation (ED), Cardiac Rehabilitation (ED), Coronary Intravascular Stent Placement (DC), After Radial Heart Catheterization (GEN) Activity/Diet/Wound Care/Special Instructions: *NO LIFTING, PUSHING, OR PULLING ANYTHING OVER 5 POUNDS FOR 5 DAYS *NO DRIVING FOR 3 DAYS *YOU CAN REMOVE YOUR DRESSING TOMORROW BUT DO NOT SUBMERSE YOUR PUNCTURE SITE IN WATER FOR A FEW DAYS TO PREVENT INFECTION - SO NO TUB BATHS, POOLS, HOT TUBS, DISHES...ETC *ANY SIGNS OF BLEEDING (HARDNESS, SWELLING, OR EXCESSIVE BRUISING) HOLD DIRECT PRESSURE ON YOUR PUNCTURE SITE AND COME TO THE NEAREST EMERGENCY ROOM TO GET YOUR PUNCTURE SITE LOOKED AT - DO NOT DRIVE YOURSELF! EITHER CALL EMS OR HAVE SOMEONE DRIVE YOU! Discharge Disposition: HOME SELF-CARE
== END 2024-02-16 09:59 | disposition home or self-care (01) ==
LOC: CATHCVL 05:48 → 3SCARD 08:25 → CATHCVL 02-16 09:59
PROVIDERS: ATTEND Internal Medicine Interventional Cardiology
DX: I25.10 Atherosclerotic heart disease of native coronary artery without angina pectoris (principal); I48.19 Other persistent atrial fibrillation; J44.9 Chronic obstructive pulmonary disease, unspecified; I10 Essential (primary) hypertension; E78.5 Hyperlipidemia, unspecified; Q21.10 Atrial septal defect, unspecified; Z79.01 Long term (current) use of anticoagulants; Z79.02 Long term (current) use of antithrombotics/antiplatelets; Z95.5 Presence of coronary angioplasty implant and graft; Z79.899 Other long term (current) drug therapy
CPT/HCPCS: 94760; 93458; 80048; 85025; 99152; 99153; C9600; C1887; C1769 ×2; C1894; C1753; C1874; C1725 ×2; J2250; J1644 ×4; J2001; Q9967; J3010; J2305

== ENCOUNTER 2024-02-21 10:05 | Emergency (ER) | payer OTHER ==
--- NOTE | 2024-02-21 10:29 | ED ---
SOB HPI - General Chief Complaint: Shortness of Breath Stated Complaint: SOB Time Seen by Provider: 02/21/24 10:25 Source: patient, RN notes reviewed, old records reviewed Mode of arrival: ambulatory Limitations: no limitations - History of Present Illness Initial Comments: This is a 73-year-old male to the ER today. Patient is up and feeling well for about a week ever since having a cardiac catheterization. Patient has had shortness of breath after the procedure and progressively worsening since. He does have increased cough occasional congestion no travels no sick contacts no other complaints. No fevers no chest pain MD Complaint: shortness of breath, pain with inspiration, anxiety -: week(s) Severity: mild Severity scale (1-10): 2 Consistency: constant Improves With: nothing Worsens With: nothing Context: anxiety, recent illness Associated Symptoms: denies other symptoms Treatments Prior to Arrival: none - Related Data Home Medications Medication Instructions Recorded Confirmed Montelukast [Singulair] 10 mg PO HS 06/20/14 02/15/24 Omeprazole [PriLOSEC] 20 mg PO QAM 06/20/14 02/15/24 lisinopriL [Zestril] 10 mg PO HS 06/20/14 02/15/24 Rosuvastatin Calcium [Crestor] 40 mg PO DAILY 11/16/18 02/15/24 Albuterol Inhaler [Ventolin Hfa 2 puff INHALATION RT-Q4H PRN 07/16/21 02/15/24 Inhaler] Aspirin EC [Ecotrin Low Dose] 81 mg PO HS 03/14/23 02/15/24 Carboxymethylcellulose Sodium 1 drop BOTH EYES BID PRN 03/14/23 02/15/24 Cholecalciferol [Vitamin D3 (10 10 mcg PO DAILY 03/14/23 02/15/24 Mcg = 400 Iu)] Metoprolol Tartrate [Lopressor] 25 mg PO BID 05/11/23 02/15/24 Multivitamins, Thera [Multivitamin 1 tab PO DAILY 05/11/23 02/15/24 (formulary)] Apixaban [Eliquis] 5 mg PO BID 02/11/24 02/15/24 Nitroglycerin 0.4 mg SL Q5M PRN 02/11/24 02/15/24 Previous Rx's Medication Instructions Recorded Tamsulosin [Flomax] 0.4 mg PO PC-SUPPER #30 cap 03/21/23 Ticagrelor [Brilinta] 90 mg PO BID #90 tab 02/16/24 Allergies Allergy/AdvReac Type Severity Reaction Status Date / Time Penicillins Allergy Rash/Hives Verified 02/21/24 10:09 shellfish derived [Shellfish] Allergy Anaphylaxis Verified 02/21/24 10:09 vitamin B Allergy Rash/Hives Uncoded 02/21/24 10:09 Review of Systems ROS Statement: Those systems with pertinent positive or pertinent negative responses have been documented in the HPI. ROS Other: All systems not noted in ROS Statement are negative. Past Medical History Past Medical History: Atrial Fibrillation, Asthma, Chest Pain / Angina, GERD/Reflux, Hyperlipidemia, Hypertension, Osteoarthritis (OA), Respiratory Disorder Additional Past Medical History / Comment(s): Hx Hammond's esophagus, hx colon polyps, prediabetic, neuropathy in feet varicose veins, INTERSTITIAL PULMONARY DISEASE, afib diagnosed March 2023, closed head injury & chest wound 1966, "failed stress test" and recent shortness of breath History of Any Multi-Drug Resistant Organisms: None Reported Past Surgical History: Cholecystectomy, Heart Catheterization With Stent, Hernia Repair Additional Past Surgical History / Comment(s): Chest wound repair-1966, bilateral cataracts removed, 4 cardiac stents, bilateral inguinal hernia repairs, COLONOSCOPY/EGD, LORENZA, cardioversion, PFO repair 09/08/23. Past Anesthesia/Blood Transfusion Reactions: No Reported Reaction, Motion Sickness, Postoperative Nausea & Vomiting (PONV) Additional Past Anesthesia/Blood Transfusion Reaction / Comment(s): No blood transfusion hx Date of Last Stent Placement:: 2018 Past Psychological History: No Psychological Hx Reported Smoking Status: Current some day smoker Past Alcohol Use History: Daily Past Drug Use History: None Reported - Past Family History Sister(s) Family Medical History: Cancer Father Family Medical History: Cancer Brother(s) Family Medical History: Cancer Additional Family Medical History / Comment(s): 2 brothers had cancer. General Exam Limitations: no limitations General appearance: alert, in no apparent distress Head exam: Present: atraumatic, normocephalic, normal inspection Eye exam: Present: normal appearance, PERRL, EOMI. Absent: scleral icterus, conjunctival injection, periorbital swelling ENT exam: Present: normal exam, mucous membranes moist Neck exam: Present: normal inspection. Absent: tenderness, meningismus, lymphadenopathy Respiratory exam: Present: normal lung sounds bilaterally. Absent: respiratory distress, wheezes, rales, rhonchi, stridor Cardiovascular Exam: Present: regular rate, normal rhythm, normal heart sounds. Absent: systolic murmur, diastolic murmur, rubs, gallop, clicks GI/Abdominal exam: Present: soft, normal bowel sounds. Absent: distended, tenderness, guarding, rebound, rigid Extremities exam: Present: normal inspection, full ROM, normal capillary refill. Absent: tenderness, pedal edema, joint swelling, calf tenderness Back exam: Present: normal inspection Neurological exam: Present: alert, oriented X3, CN II-XII intact Psychiatric exam: Present: normal affect, normal mood Skin exam: Present: warm, dry, intact, normal color. Absent: rash Course Vital Signs 02/21/24 02/21/24 02/21/24 10:06 10:20 11:00 Temperature 97.3 F L Pulse Rate 72 64 Respiratory 18 16 21 Rate Blood Pressure 133/76 125/80 O2 Sat by Pulse 98 97 Oximetry 02/21/24 02/21/24 02/21/24 12:00 12:24 12:41 Temperature 97.6 F Pulse Rate 56 L 53 L 65 Respiratory 20 Rate Blood Pressure 117/71 O2 Sat by Pulse 97 Oximetry 02/21/24 12:57 Temperature 97.6 F Pulse Rate 79 Respiratory 20 Rate Blood Pressure 141/82 O2 Sat by Pulse 96 Oximetry - Reevaluation(s) Reevaluation #1: 02/21/24 11:37 Medical records reviewed Reevaluation #2: 02/21/24 11:37 Patient symptoms unchanged Reevaluation #3: 02/21/24 11:37 Patient informed of results questions answered Reevaluation #4: Was pt. sent in by a medical professional or institution (, PA, VOICE WRITING REPORTER, urgent care, hospital, or correction...) When possible be specific @ -no Did you speak to anyone other than the patient for history (EMS, parent, family, police, friend...)? What history was obtained from this source @ -no Did you review nursing and triage notes (agree or disagree)? Why? @ -agree Are old charts reviewed (outside hosp., previous admission, EMS record, old EKG, old radiological studies, urgent care reports/EKG's, correction records)? Report findings @ -yes Differential Diagnosis (chest pain, altered mental status, abdominal pain women, abdominal pain men, vaginal bleeding, weakness, fever, dyspnea, syncope, headache, dizziness, GI bleed, back pain, seizure, CVA, palpatations, mental health, musculoskeletal)? @ -prior EKG interpreted by me (3pts min.). @ -yes X-rays interpreted by me (1pt min.). @ -yes negative for acute disease CT interpreted by me (1pt min.). @ -no U/S interpreted by me (1pt. min.). @ -no What testing was considered but not performed or refused? (CT, X-rays, U/S, labs)? Why? @ -none What meds were considered but not given or refused? Why? @ -none Did you discuss the management of the patient with other professionals (professionals i.e. , PA, VOICE WRITING REPORTER, lab, RT, psych nurse, community mental health social worker, toppiece cutter, teacher, medical officer, case packer)? Give summary @ -no Was smoking cessation discussed for >3mins.? @ -no Was critical care preformed (if so, how long)? @ -no Were there social determinants of health that impacted care today? How? (Homelessness, low income, unemployed, alcoholism, drug addiction, transportation, low edu. Level, literacy, decrease access to med. care, shelter, rehab)? @ -none Was there de-escalation of care discussed even if they declined (Discuss DNR or withdrawal of care, Hospice)? DNR status @ -no What co-morbidities impacted this encounter? (DM, HTN, Smoking, COPD, CAD, Cancer, CVA, ARF, Chemo, Hep., AIDS, mental health diagnosis, sleep apnea, morbid obesity)? @ -none Was patient admitted / discharged? Hospital course, mention meds given and route, prescriptions, significant lab abnormalities, going to OR and other pertinent info. @ - 73 male to ER for evaluation of A-fib chest pain and has no other complaints here patient feels well here in the ER and can be discharged home Discharge Undiagnosed new problem with uncertain prognosis? @ -no Drug Therapy requiring intensive monitoring for toxicity (Heparin, Nitro, Insulin, Cardizem)? @ -no Were any procedures done? @ -no Diagnosis/symptom? @ -Chest pain Acute, or Chronic, or Acute on Chronic? @ -Acute Uncomplicated (without systemic symptoms) or Complicated (systemic symptoms)? @ -Complicated Side effects of treatment? @ -no Exacerbation, Progression, or Severe Exacerbation? @ -exacerbation Poses a threat to life or bodily function? How? (Chest pain, USA, ID, pneumonia, PE, COPD, DKA, ARF, appy, cholecystitis, CVA, Diverticulitis, Homicidal, Suicidal, threat to staff... and all critical care pts) @ -yes extremes of age recent heart cath chest pain Reevaluation #5: Differential Dyspnea: Coronary syndrome, arrhythmia, tamponade, asthma, COPD, pulmonary embolism, pneumonia, pneumothorax, pulmonary effusion, anaphylaxis, diabetic ketoacidosis, flailed chest, pulmonary contusion, diaphragmatic rupture, anemia, neuromuscular, this is not meant to be an all-inclusive list. Medical Decision Making - Medical Decision Making 73 male to ER for evaluation of A-fib chest pain and has no other complaints here patient feels well here in the ER and can be discharged home - Lab Data Result diagrams: 02/21/24 10:38 02/21/24 10:38 Lab Results 02/21/24 02/21/24 02/21/24 Range/Units 10:38 10:38 10:38 WBC 10.5 (3.8-10.6) k/uL RBC 5.23 (4.30-5.90) m/uL Hgb 16.0 (13.0-17.5) gm/dL Hct 48.2 (39.0-53.0) % MCV 92.2 (80.0-100.0) fL MCH 30.6 (25.0-35.0) pg MCHC 33.2 (31.0-37.0) g/dL RDW 13.6 (11.5-15.5) % Plt Count 169 (150-450) k/uL MPV 8.4 Neutrophils % 62 % Lymphocytes % 25 % Monocytes % 7 % Eosinophils % 3 % Basophils % 1 % Neutrophils # 6.5 (1.3-7.7) k/uL Lymphocytes # 2.6 (1.0-4.8) k/uL Monocytes # 0.7 (0-1.0) k/uL Eosinophils # 0.3 (0-0.7) k/uL Basophils # 0.1 (0-0.2) k/uL PT 12.0 (10.0-12.5) sec INR 1.1 (<1.2) APTT 24.1 (22.0-30.0) sec Sodium 139 (137-145) mmol/L Potassium 4.2 (3.5-5.1) mmol/L Chloride 108 H (98-107) mmol/L Carbon Dioxide 22 (22-30) mmol/L Anion Gap 9 mmol/L BUN 19 (9-20) mg/dL Creatinine 0.67 (0.66-1.25) mg/dL Est GFR (CKD-EPI)AfAm >90 (>60 ml/min/1.73 sqM) Est GFR (CKD-EPI)NonAf >90 (>60 ml/min/1.73 sqM) Glucose 101 H (74-99) mg/dL Calcium 9.4 (8.4-10.2) mg/dL Phosphorus 4.0 (2.5-4.5) mg/dL Magnesium 1.6 (1.6-2.3) mg/dL Total Bilirubin 1.1 (0.2-1.3) mg/dL AST 28 (17-59) U/L ALT 23 (4-49) U/L Alkaline Phosphatase 69 (38-126) U/L Troponin I (0.000-0.034) ng/mL NT-Pro-B Natriuret Pep 559 pg/mL Total Protein 7.7 (6.3-8.2) g/dL Albumin 4.4 (3.5-5.0) g/dL Lipase 100 (23-300) U/L Serum Alcohol <10 mg/dL 02/21/24 Range/Units 10:38 WBC (3.8-10.6) k/uL RBC (4.30-5.90) m/uL Hgb (13.0-17.5) gm/dL Hct (39.0-53.0) % MCV (80.0-100.0) fL MCH (25.0-35.0) pg MCHC (31.0-37.0) g/dL RDW (11.5-15.5) % Plt Count (150-450) k/uL MPV Neutrophils % % Lymphocytes % % Monocytes % % Eosinophils % % Basophils % % Neutrophils # (1.3-7.7) k/uL Lymphocytes # (1.0-4.8) k/uL Monocytes # (0-1.0) k/uL Eosinophils # (0-0.7) k/uL Basophils # (0-0.2) k/uL PT (10.0-12.5) sec INR (<1.2) APTT (22.0-30.0) sec Sodium (137-145) mmol/L Potassium (3.5-5.1) mmol/L Chloride (98-107) mmol/L Carbon Dioxide (22-30) mmol/L Anion Gap mmol/L BUN (9-20) mg/dL Creatinine (0.66-1.25) mg/dL Est GFR (CKD-EPI)AfAm (>60 ml/min/1.73 sqM) Est GFR (CKD-EPI)NonAf (>60 ml/min/1.73 sqM) Glucose (74-99) mg/dL Calcium (8.4-10.2) mg/dL Phosphorus (2.5-4.5) mg/dL Magnesium (1.6-2.3) mg/dL Total Bilirubin (0.2-1.3) mg/dL AST (17-59) U/L ALT (4-49) U/L Alkaline Phosphatase (38-126) U/L Troponin I <0.012 (0.000-0.034) ng/mL NT-Pro-B Natriuret Pep pg/mL Total Protein (6.3-8.2) g/dL Albumin (3.5-5.0) g/dL Lipase (23-300) U/L Serum Alcohol mg/dL - EKG Data -: EKG Interpreted by Me (EKG is A-fib 63 QRS 105 QTc 443) - Radiology Data Radiology results: report reviewed (Chest x-ray is negative for acute disease), image reviewed Disposition Clinical Impression: Dyspnea Disposition: HOME SELF-CARE Condition: Good Instructions (If sedation given, give patient instructions): Dyspnea (ED) Is patient prescribed a controlled substance at d/c from ED?: No Referrals: [facility],Clinic [Primary Care Provider] - 1-2 days Time of Disposition: 12:45
[2024-02-21 11:04] LABS: Basophils # (A) 0.1 k/uL (0-0.2); Basophils % (A) 1 %; Eosinophils # (A) 0.3 k/uL (0-0.7); Eosinophils % (A) 3 %; HCT 48.2 % (39.0-53.0); Lymphocytes # (A) 2.6 k/uL (1.0-4.8); Lymphocytes % (A) 25 %; MCH 30.6 pg (25.0-35.0); MCHC 33.2 g/dL (31.0-37.0); MCV 92.2 fL (80.0-100.0); Mean Platelet Volume 8.4; Monocytes # (A) 0.7 k/uL (0-1.0); Monocytes % (A) 7 %; Neutrophils # (A) 6.5 k/uL (1.3-7.7); Neutrophils % (A) 62 %; Platelet Count 169 k/uL (150-450); RBC 5.23 m/uL (4.30-5.90); RDW 13.6 % (11.5-15.5); WBC 10.5 k/uL (3.8-10.6)
[2024-02-21] MEDS: SODIUM CHLORIDE 0.9% 1,000 ML IV STA (11:10)
[2024-02-21 11:11] LABS: INR 1.1 (<1.2); Partial Thromboplastin Time 24.1 sec (22.0-30.0)
[2024-02-21 11:18] LABS: ALT 23 U/L (4-49); AST 28 U/L (17-59); African American GFR (CKD) >90 (>60 ml/min/1.73 sqM); Albumin 4.4 g/dL (3.5-5.0); Alcohol <10 mg/dL; Alkaline Phosphatase 69 U/L (38-126); Anion Gap 9 mmol/L; Blood Urea Nitrogen 19 mg/dL (9-20); Calcium 9.4 mg/dL (8.4-10.2); Carbon Dioxide 22 mmol/L (22-30); Chloride 108 mmol/L (98-107); Glucose 101 mg/dL (74-99); Lipase 100 U/L (23-300); Magnesium 1.6 mg/dL (1.6-2.3); Non-African American GFR(CKD) >90 (>60 ml/min/1.73 sqM); Potassium 4.2 mmol/L (3.5-5.1); Sodium 139 mmol/L (137-145); Total Bilirubin 1.1 mg/dL (0.2-1.3); Total Protein 7.7 g/dL (6.3-8.2)
[2024-02-21 11:24] LABS: NT-Pro-B-Type Natriuretic Pept 559 pg/mL
--- NOTE | 2024-02-21 12:03 | XR ---
EXAMINATION TYPE: XR chest 2V DATE OF EXAM: 02/21/2024 11:59 AM CLINICAL INDICATION:Male, 73 years old with history of sob; COMPARISON: Chest radiographs from 09/09/2023 TECHNIQUE: XR chest 2V Frontal view of the chest. FINDINGS: Lungs/Pleura: Prominent interstitial lung markings are seen scattered throughout the lungs. No eviden ce of focal consolidation, pneumothorax or pleural effusion. Pulmonary vascularity: Unremarkable. Heart/mediastinum: Cardiomediastinal silhouette is unremarkable. Musculoskeletal: No acute osseous pathology. IMPRESSION: Chronic changes without acute pulmonary process. No significant change from prior.
[2024-02-21] MEDS: IPRATROPIUM-ALBUTEROL 3 ML NEB INHALATION STA (12:24)
[2024-02-21 12:25] VITALS: RESP 20; TEMP 97.6
[2024-02-21 13:34] VITALS: BP 141/82; PULSE 79
== END 2024-02-21 13:00 | disposition home or self-care (01) ==
LOC: EC 10:05
DX: R06.00 Dyspnea, unspecified (principal); F17.200 Nicotine dependence, unspecified, uncomplicated; Z88.0 Allergy status to penicillin; Z88.8 Allergy status to other drugs, medicaments and biological substances; Z91.013 Allergy to seafood
CPT/HCPCS: 36415; 71046; 80053; 80320; 83690; 83735; 83880; 84100; 84484; 85025; 85610; 85730; 93005; 94640; 96360; 99285

== ENCOUNTER 2024-03-20 16:05 | Emergency (ER) | payer OTHER ==
--- NOTE | 2024-05-03 09:16 | XR ---
EXAMINATION TYPE: XR chest 2V DATE OF EXAM: 03/20/2024 COMPARISON: Chest radiographs from 02/21/2024 TECHNIQUE: XR chest 2V Frontal and lateral views of the chest. CLINICAL INDICATION:Male, 73 years old with history of LUNG MASS; FINDINGS: Lungs/Pleura: No pleural effusion or pneumothorax. Prominent interstitial reticular opacities redemon strated and not significantly changed from prior exam. No focal consolidation. Pulmonary vascularity: Unremarkable. Heart/mediastinum: Cardiomediastinal silhouette is unremarkable. Atherosclerotic calcifications are seen in the aorta. Musculoskeletal: Multiple level degenerative disc disease changes seen throughout the spine. IMPRESSION: Chronic reticular parenchymal changes suggesting interstitial lung disease. No significant change fro m most recent chest radiograph 02/21/2024. Consider CT chest if there is continued clinical concern. [facility], , 05/03/2024 9:14 AM
== END 2024-03-20 23:00 | disposition home or self-care (01) ==
LOC: EC 16:05
CPT/HCPCS: 71046; 99283

== ENCOUNTER → 2024-05-01 | Outpatient (CLI) | payer OTHER ==
--- NOTE | 2024-05-01 12:45 | CT ---
EXAMINATION TYPE: High-resolution CT chest wo con DATE OF EXAM: 05/01/2024 COMPARISON: 11/21/2021 HISTORY: 73-year-old male J84.9 ILD TECHNIQUE: High-resolution CT scanning of the chest utilizing 1 mm slice thickness and 1 cm gap per H RCT protocol. Both prone and supine imaging is performed. CT DLP: 1832.4mGycm. Automatic exposure control utilized for a dose reduction. FINDINGS: The heart is mildly enlarged without pericardial effusion. Extensive LAD coronary artery calcificatio ns are present. PFO closure device noted. Ectatic ascending aorta 3.8 cm. Conventional arch vessel branching anatomy. Enlarged 1.4 cm lower right paratracheal lymph node present 1.0 cm, previously, likely reactive/post inflammatory. Additional small paratracheal nodes are present. 7 mm AP window lymph node. Enlarged caliber main right and left pulmonary arteries measuring up to 2.9 cm suggesting underlying pulmonary artery hypertension. Lungs show increasing subpleural groundglass, reticular, and microcystic change. Possible development of honeycombing along the posterior midlungs on both sides. Tiny hiatal hernia. Otherwise, visualized upper abdomen shows cholecystectomy clips and mild to moder ate stool burden. IMPRESSION: 1. Interstitial lung disease characterized by subpleural groundglass, reticulations, and microcystic change with a lower lung predominance has progressed from 2021. There may be honeycombing at the post erior mid lungs now as well. Consider fibrotic NSIP in the differential. 2. Pulmonary arterial hypertension, mild cardiomegaly, and extensive LAD coronary artery calcificatio ns. [facility], , 05/01/2024 12:43 PM
== END | disposition home or self-care (01) ==
LOC: RADCTMAIN 11:22
PROVIDERS: ATTEND Internal Medicine
DX: J84.9 Interstitial pulmonary disease, unspecified
CPT/HCPCS: 71250

== ENCOUNTER → 2024-11-03 | Outpatient (CLI) | payer MEDICARE, OTHER ==
[2024-11-03 11:44] LABS: African American GFR (CKD) >90 (>60 ml/min/1.73 sqM); Blood Urea Nitrogen 18 mg/dL (9-20); Non-African American GFR(CKD) 85 (>60 ml/min/1.73 sqM)
--- NOTE | 2024-11-03 12:28 | CT ---
EXAMINATION TYPE: CT chest w con DATE OF EXAM: 11/03/2024 COMPARISON: 05/01/2024 CLINICAL INDICATION: Male, 73 years old with history of R59.0 LOCALIZED ENLARGED LYMPH NODES; PHH, pu lmonary fibrosis TECHNIQUE: CT scan of the chest is performed with IV Contrast, patient injected with 100ml mL of Isovue 300. [place] P Images are created on CT scanner and reviewed. 3D reconstructed images are created on an [employer] workstation and reviewed. CT DLP: [address] CTDI: mGy Automated exposure control for dose reduction was used. FINDINGS: LUNGS: Subpleural fibrosis seen throughout both lung queen. No evidence for consolidation. No nodule or mass seen. MEDIASTINUM: There are scattered lymph nodes seen measuring approximately up to 1.2 cm unchanged from prior study. No pericardial effusion is seen. There is evidence of cardiomegaly. OTHER: No additional significant abnormality is seen. IMPRESSION: Subpleural fibrosis seen throughout both lung queen. No evidence for consolidation. No nspecific mildly prominent lymph nodes. Follow-up recommendations for incidental pulmonary nodules are per [employer] or [employer]. [facility], , 11/03/2024 12:25 PM
== END | disposition home or self-care (01) ==
LOC: RADCTMAIN 11:02
PROVIDERS: ATTEND Internal Medicine
DX: J84.10 Pulmonary fibrosis, unspecified (principal); R59.0 Localized enlarged lymph nodes
CPT/HCPCS: 82565; 84520; 71260; 36415; Q9967